=== PATIENT | female | born 1945 | race Caucasian/White ===

== ENCOUNTER 2019-05-06 01:44 | Day surgery (SDC) | payer MEDICARE, SELFPAY ==
[2019-04-29 10:54] VITALS: BMI 23.6
[2019-05-06 08:42] VITALS: BP 118/69; PULSE 99; RESP 20; TEMP 36.3; O2SAT 99; BMI 23.1
[2019-05-06] MEDS: LACTATED RINGERS 1,000 ML 150 ML IV CONT (08:49)
--- NOTE | 2019-05-06 08:53 | WPDANESEPPF ---
Anes - Initial Pre Proc Eval Procedure: Operation Date: 05/06/19 09:30 Proposed Procedures p Screening Colonoscopy - Hernesto Goldsmith DO Date/Time: 05/06/19 08:53 Surgeon: Hernesto Goldsmith DO Pre Op Diagnosis: Neoplasm Screening Patient Data Age: 73 Gender: F Height: 5 ft 3 in Weight: 59.3 kg Last Vital Signs Temp 97.4 F L 05/06/19 08:42 Pulse 99 05/06/19 08:42 Resp 20 05/06/19 08:42 BP 118/69 05/06/19 08:42 Pulse Ox 99 05/06/19 08:42 Allergies Allergy/AdvReac Type Severity Reaction Status Date / Time erythromycin base Allergy Unknown Verified 05/06/19 08:41 nitrofurantoin Allergy Unknown Verified 05/06/19 08:41 NITROFURANTOIN MACROCRYSTAL Allergy Unknown Uncoded 05/06/19 08:41 Home Medications Medication Instructions Recorded Confirmed Type diphenhydramine HCl [Benadryl] 12.5 mg PO HS 05/06/19 05/06/19 History ibuprofen 1,000 mg PO Q6H PRN 05/06/19 05/06/19 History lactase [Lactaid] 3,000 unit PO ONCE PRN 05/06/19 05/06/19 History phenyleph-min oil-petrolatum 1 applic [place] QAM AND QHS PRN 05/06/19 05/06/19 History [Preparation H] simethicone [Gas-X Extra Strength] 125 mg PO DAILY PRN 05/06/19 05/06/19 History Patient hx anesthesia problems: none Family hx anesthesia problems: none PMFSH Past Medical History Medical History (Updated 05/06/19 @ 08:52 by Toby Smith MD) Bronchitis Hyperlipidemia Migraine Family History Family History (Updated 07/12/16 @ 23:56 by DOCTOR UNKNOWN) Father Acute myocardial infarction, Onset Age: 73 Patient's father is Mother Carcinoma of colon, Onset Age: 54 Patient's mother is Sibling Patient's brother is Social History Social History (Updated 05/06/19 @ 08:53 by Toby Smith MD) Smoking packs per day: 1.5 Smoking cigarettes per day: 30.0 Years smoked: 60 Smoking pack-years: 90.00 Smoking status: Current every day smoker Alcohol intake: never Anes - Eval Final PreProcedure Day of Procedure 05/06/19 08:53 Patient weight: normal Heart: regular rate and rhythm Lungs: clear to auscultation Airway: Mallampati scale class II Neurological: alert and oriented Last oral intake: >/= 8 hours ASA classification: III Emergent: no Anesthetic plan: proceed Anesthesia type and monitoring: general GIVS and standard monitoring Informed Consent: The patient's anesthetic plan and its attendant risks and benefits were discussed with the patient/family/POA. Questions were solicited and answers provided to the satisfaction of the patient/family/POA.
--- NOTE | 2019-05-06 08:55 | PM.IMHP ---
H&P: HPI History of Present Illness Chief complaint: Neoplasm Screening Narrative: Rody Wynn is a 73 year old female presents for colonoscopy. Last colonoscopy was in 2010 and has hx of tubular adenomas polyps. She does report lower abdominal cramping that comes and goes. She denies any association with bowel patterns.Denies melena, hematochezia, rectal pains. Denies upper GI symptoms. Family hx of colon cancer in her m toher diagnosed age 56. Review of Systems Review of Systems: All systems reviewed & are unremarkable except as noted in HPI and below PMFSH Past Medical History Medical History (Updated 05/06/19 @ 08:59 by Kate Gutierrez, [employer]) Bronchitis Hyperlipidemia Migraine Family History Family History (Updated 07/12/16 @ 23:56 by DOCTOR UNKNOWN) Father Acute myocardial infarction, Onset Age: 73 Patient's father is Mother Carcinoma of colon, Onset Age: 54 Patient's mother is Sibling Patient's brother is Social History Social History (Updated 05/06/19 @ 08:53 by Toby Smith MD) Smoking packs per day: 1.5 Smoking cigarettes per day: 30.0 Years smoked: 60 Smoking pack-years: 90.00 Smoking status: Current every day smoker Alcohol intake: never Meds Home Medications and Allergies Home Medications Medication Instructions Recorded Confirmed Type diphenhydramine HCl [Benadryl] 12.5 mg PO HS 05/06/19 05/06/19 History ibuprofen 1,000 mg PO Q6H PRN 05/06/19 05/06/19 History lactase [Lactaid] 3,000 unit PO ONCE PRN 05/06/19 05/06/19 History phenyleph-min oil-petrolatum 1 applic [place] QAM AND QHS PRN 05/06/19 05/06/19 History [Preparation H] simethicone [Gas-X Extra Strength] 125 mg PO DAILY PRN 05/06/19 05/06/19 History Allergies Allergy/AdvReac Type Severity Reaction Status Date / Time erythromycin base Allergy Unknown Verified 05/06/19 08:41 nitrofurantoin Allergy Unknown Verified 05/06/19 08:41 NITROFURANTOIN MACROCRYSTAL Allergy Unknown Uncoded 05/06/19 08:41 Vital Signs Vital Signs - 24 hr 05/06/19 08:42 Temperature 36.3 C L Pulse Rate 99 Respiratory Rate 20 Blood Pressure 118/69 Pulse Oximetry 99 Exam Const: General: cooperative, healthy appearing, comfortable, alert and awake Nutritional Appearance: average body habitus Orientation/consciousness: oriented to person, oriented to place, oriented to time and patient oriented x3 Limitations: no limitations HENMT: Head: normal to inspection and normocephalic Mouth: Yes Normal oral and palatal mucosa present and Yes moist mucous membranes Neck: Neck: normal visual inspection, supple and no JVD Carotids: no bruits Resp: Effort & Inspection: normal respiratory effort and no respiratory distress Auscultation: diminished lung sounds Cardio: Rate: regular rate Rhythm: regular rhythm Heart sounds: S1 normal heart sound present, S2 normal heart sound present, no gallops, no murmurs and no rubs GI: Inspection: normal to inspection GI Palp: No abdominal tenderness and No No hepatosplenomegaly present Percussion: Yes normal to percussion Auscultation: normal bowel sounds Rectal Exam: deferred Skin: General skin exam: normal color Lesions: no lesions Rashes: no rashes Neuro: General: oriented to person, oriented to place, oriented to time, patient oriented x3 and moves all extremities Cognition (Neuro): normal cognition Speech: normal speech Gait exam (Neuro): Normal gait present Extrem: General: normal to inspection Psych: Appearance: grossly normal Mental Status: mental status grossly normal Speech and movement: Normal speech and movement present Affect: normal affect Attitude: cooperative Thought process: Normal thought process present Assessment and Plan Assessment and plan (1) Bilateral lower abdominal cramping: Code(s): R10.31 - Right lower quadrant pain; R10.32 - Left lower quadrant pain Status: Acute (2) Hx o
[2019-05-06 09:44] VITALS: BP 107/57; PULSE 68; RESP 17; O2SAT 100
[2019-05-06 09:54] VITALS: BP 119/58; PULSE 70; RESP 20; O2SAT 98
[2019-05-06 10:04] VITALS: BP 125/63; PULSE 81; RESP 20; O2SAT 98
== END 2019-05-06 10:19 | disposition home or self-care (01) ==
PROVIDERS: PCP Emergency Medicine; Visit Provider Internal Medicine Gastroenterology
PROC: 0DJD8ZZ Inspection of Lower Intestinal Tract, Via Natural or Artificial Opening Endoscopic (ICD-10-PCS; CPT 45378; principal; 2019-05-06 09:30)
DX: Z12.11 Encounter for screening for malignant neoplasm of colon (principal); D12.5 Benign neoplasm of sigmoid colon; D12.2 Benign neoplasm of ascending colon; D12.3 Benign neoplasm of transverse colon; D12.4 Benign neoplasm of descending colon; K63.5 Polyp of colon; K64.8 Other hemorrhoids; R19.5 Other fecal abnormalities; Z80.0 Family history of malignant neoplasm of digestive organs; Q27.33 Arteriovenous malformation of digestive system vessel
CPT/HCPCS: 45380; 45385; 45388; 88305; J2704; J7120

== ENCOUNTER 2019-05-07 09:19 | Emergency (ER) | payer MEDICARE, SELFPAY ==
[2019-05-07 09:33] VITALS: BP 140/70; PULSE 97; RESP 18; TEMP 36.7; O2SAT 99
--- NOTE | 2019-05-07 09:35 | ED.GIBLEED ---
HPI - GI Bleed General Chief complaint: Abdominal Pain Stated complaint: RECTAL BLEED S/P COLOSCOPY Time Seen by Provider: 05/07/19 09:31 Source: patient and RN notes reviewed Mode of arrival: ambulatory Limitations: no limitations History of Present Illness HPI Narrative: Pt is a 73 y/o female who presents to the ED with c/o rectal bleeding. She notes that she has had intermittent rt sided ABD cramping for awhile. Pt states that she received a colonoscopy from Dr. Goldsmith yesterday. She notes that she had what may have been a bleeding ulcer cauterized during the procedure. Pt states that Pt has had rt sided ABD cramping for awhile (feels like gas) Rectal bleeding (had increased blood in stool this morning) this was around 7 AM Normal stool Only had 1 BM with blood No lightheadedness, dizziness, or nausea No blood thinners Dr. Aguirre did colonoscopy yesterday with cauterization of bleeind ulcer? Did pass mild blood clot after getting home from hospital Hyster, spine surgery, bowel blockage hemorrhoids MD complaint: gross hematochezia Onset (ago): day(s) (1) Related Data Home Medications Medication Instructions Recorded Confirmed diphenhydramine HCl [Benadryl] 12.5 mg PO HS 05/06/19 05/06/19 ibuprofen 1,000 mg PO Q6H PRN 05/06/19 05/06/19 lactase [Lactaid] 3,000 unit PO ONCE PRN 05/06/19 05/06/19 phenyleph-min oil-petrolatum 1 applic [place] QAM AND QHS PRN 05/06/19 05/06/19 [Preparation H] simethicone [Gas-X Extra Strength] 125 mg PO DAILY PRN 05/06/19 05/06/19 Allergies Allergy/AdvReac Type Severity Reaction Status Date / Time erythromycin base Allergy Unknown Nausea and Verified 05/07/19 09:38 Vomiting nitrofurantoin Allergy Unknown Hives Verified 05/07/19 09:38 NITROFURANTOIN MACROCRYSTAL Allergy Unknown Hives Uncoded 05/07/19 09:38 [facility] Past Medical History Medical History (Updated 05/06/19 @ 08:59 by Kate Gutierrez, [employer]) Bronchitis Hyperlipidemia Migraine Family History Family History (Updated 07/12/16 @ 23:56 by DOCTOR UNKNOWN) Father Acute myocardial infarction, Onset Age: 73 Patient's father is Mother Carcinoma of colon, Onset Age: 54 Patient's mother is Sibling Patient's brother is Social History Social History (Updated 05/06/19 @ 08:53 by Toby Smith MD) Smoking packs per day: 1.5 Smoking cigarettes per day: 30.0 Years smoked: 60 Smoking pack-years: 90.00 Smoking status: Current every day smoker Alcohol intake: never Gender identity (if verbalized by the patient): Female Course Vital Signs Vital signs: Vital Signs Temperature 36.7 C 05/07/19 09:33 Pulse Rate 97 05/07/19 09:33 Respiratory Rate 18 05/07/19 09:33 Blood Pressure 140/70 05/07/19 09:33 Pulse Oximetry 99 05/07/19 09:33 Temperature 36.7 C 05/07/19 09:33 Pulse Rate 97 05/07/19 09:33 Respiratory Rate 18 05/07/19 09:33 Blood Pressure 140/70 05/07/19 09:33 Pulse Oximetry 99 05/07/19 09:33 Discharge Plan Discharge Prescriptions: No Action ibuprofen 200 mg Capsule 1,000 mg PO Q6H PRN (Reason: Pain) RF: 0 simethicone [Gas-X Extra Strength] 125 mg Capsule 125 mg PO DAILY PRN (Reason: Pain) RF: 0 diphenhydramine HCl [Benadryl] 25 mg Capsule 12.5 mg PO HS RF: 0 lactase [Lactaid] 3,000 unit Tablet 3,000 unit PO ONCE PRN (Reason: Abdominal Pain) RF: 0 Preparation H 0.25-14-74.9 % Ointment 1 applic [place] QAM AND QHS PRN (Reason: Pain) RF: 0
--- NOTE | 2019-05-07 09:42 | ED.GIBLEED ---
HPI - GI Bleed General Chief complaint: Abdominal Pain Stated complaint: RECTAL BLEED S/P COLOSCOPY Time Seen by Provider: 05/07/19 09:31 Source: patient and RN notes reviewed Mode of arrival: ambulatory Limitations: no limitations History of Present Illness HPI Narrative: Pt is a 73 y/o female with a Hx of hemorrhoids, who presents to the ED with c/o rectal bleeding since yesterday. She notes that she has had intermittent lower ABD cramping for awhile. Pt states that she received a colonoscopy from [employer], Dr. Goldsmith yesterday, and notes that she had several colonic polyps removed during the procedure. She states that she passed a small clot of blood after returning home from the surgery yesterday. Pt notes that she then noticed blood in her stool around 7 AM this morning. She states that her stool appeared normal, but she noticed blood within the toilet. Pt currently denies any lightheadedness, dizziness, or nausea. She notes that she is not currently taking any blood thinners. MD complaint: gross hematochezia Onset (ago): day(s) (1) Context: hemorrhoids and other (recent colonoscopy) Associated symptoms: abdominal pain (lower ABD cramping) Related Data Home Medications Medication Instructions Recorded Confirmed diphenhydramine HCl [Benadryl] 12.5 mg PO HS 05/06/19 05/06/19 ibuprofen 1,000 mg PO Q6H PRN 05/06/19 05/06/19 lactase [Lactaid] 3,000 unit PO ONCE PRN 05/06/19 05/06/19 phenyleph-min oil-petrolatum 1 applic [place] QAM AND QHS PRN 05/06/19 05/06/19 [Preparation H] simethicone [Gas-X Extra Strength] 125 mg PO DAILY PRN 05/06/19 05/06/19 Allergies Allergy/AdvReac Type Severity Reaction Status Date / Time erythromycin base Allergy Unknown Nausea and Verified 05/07/19 09:38 Vomiting nitrofurantoin Allergy Unknown Hives Verified 05/07/19 09:38 NITROFURANTOIN MACROCRYSTAL Allergy Unknown Hives Uncoded 05/07/19 09:38 Review of Systems Review of Systems: All systems reviewed & are unremarkable except as noted in HPI and below Gastrointestinal: Gastrointestinal: Reports abdominal pain (lower ABD cramping), Reports hematochezia and Denies nausea Neurologic: Denies dizziness and Denies other (lightheadedness) [facility] Past Medical History Medical History Arthritis Back pain Bronchitis Cataracts, bilateral Colon polyps Depression GERD (gastroesophageal reflux disease) Hemorrhoids Hyperlipidemia Migraine Optic nerve tumor Spinal stenosis Uterine cancer Surgical History Surgical History Hx of abdominal hysterectomy Hx of cataract surgery Hx of colonoscopy with removal of colonic polyps Previous back surgery Family History Family History (Updated 07/12/16 @ 23:56 by DOCTOR UNKNOWN) Father Acute myocardial infarction, Onset Age: 73 Patient's father is Mother Carcinoma of colon, Onset Age: 54 Patient's mother is Sibling Patient's brother is Social History Social History Smoking packs per day: 1.5 Smoking cigarettes per day: 30.0 Years smoked: 60 Smoking pack-years: 90.00 Smoking status: Current every day smoker Alcohol intake: never Gender identity (if verbalized by the patient): Female Comments PCP is Dr. Cottrell. Exam Narrative: Exam Narrative: GENERAL: Well-appearing, well-nourished, and in no acute distress. HEAD: Normocephalic, atraumatic EYES: PERRLA and EOMI, conjunctiva clear without discharge THROAT:Mucous membranes moist, Oropharynx normal without erythema, exudate, peritonsillar swelling or fluctuance NECK: Supple, without lymphadenopathy or mass RESPIRATORY: No respiratory distress, Airway patent, Respirations non-labored, Clear to auscultation without rales, rhonchi or wheeze HEART: Regular rate and rhythm. No murmur heard. Normal peripheral puls
[2019-05-07 09:57] VITALS: BP 132/59; PULSE 92
[2019-05-07 09:57] LABS: Basophils Absolute Auto 0.1 K/mm3 (0.0-0.1); Basophils Percent Auto 0.5 % (0.2-1.2); Eosinophils Absolute Auto 0.1 K/mm3 (0-0.3); Eosinophils Percent Auto 0.9 % (0-4.4); Hematocrit 45.7 % (37.0-47.0); Hemoglobin 14.7 g/dL (12.0-15.0); Immature Granulocyte Absolute 0.07 K/mm3 (0.00-0.031); Immature Granulocyte Percent A 0.6 % (0-0.5); Lymphocytes Absolute Auto 1.81 K/mm3 (0.9-3.2); Lymphocytes Percent Auto 15.8 % (18.3-44.2); Mean Corpuscular HGB Conc 32.2 g/dl (32-36); Mean Corpuscular Hemoglobin 29.4 pg (26-34); Mean Corpuscular Volume 91.4 fl (80-100); Monocytes Absolute Auto 0.8 K/mm3 (0.1-0.6); Monocytes Percent Auto 6.6 % (2.6-8.5); Neutrophils Absolute Auto 8.7 K/mm3 (1.3-6.7); Neutrophils Percent Auto 75.6 % (45.5-73.1); Platelet Count Result 342 k/mm3 (150-375); Red Cell Distribution Width 14.3 % (11.5-14.5); White Blood Count 11.5 K/mm3 (4.5-10.0)
[2019-05-07 09:58] VITALS: BP 111/65; BP 116/67; PULSE 90; PULSE 97
[2019-05-07 10:09] LABS: Alanine Aminotransferase 20 U/L (4-35); Albumin Level 4.8 g/dL (3.5-5.1); Alkaline Phosphatase 77 U/L (38-126); Aspartate Amino Transferase 26 U/L (14-36); Bilirubin,Total 0.4 mg/dL (0.2-1.3); Blood Urea Nitrogen 9 mg/dL (7-17); Calcium 9.6 mg/dL (8.4-10.2); Carbon Dioxide 26 mmol/L (22-30); Chloride 99 mmol/L (98-107); Estimated CRCL calculation 49 ml/min; Estimated Glomerular Filt Rate > 60; Glucose 112 mg/dL (65-105); Potassium 4.2 mmol/L (3.4-5.0); Sodium 137 mmol/L (137-145)
[2019-05-07 10:10] LABS: INR 0.9; Prothrombin Time 11.7 Seconds (11.1-14.7)
[2019-05-07 10:11] LABS: Partial Thromboplastin Time 29.3 SECONDS (22.3-36.8)
[2019-05-07 10:54] VITALS: BP 127/74; PULSE 85; RESP 18; O2SAT 95
== END 2019-05-07 11:35 | disposition home or self-care (01) ==
PROVIDERS: Emergency Provider General Practice; PCP Emergency Medicine
DX: K91.840 Postprocedural hemorrhage of a digestive system organ or structure following a digestive system procedure (principal); F17.210 Nicotine dependence, cigarettes, uncomplicated; M19.90 Unspecified osteoarthritis, unspecified site; K21.9 Gastro-esophageal reflux disease without esophagitis; E78.5 Hyperlipidemia, unspecified; Z85.42 Personal history of malignant neoplasm of other parts of uterus; Z98.42 Cataract extraction status, left eye; Z98.41 Cataract extraction status, right eye
CPT/HCPCS: 36415; 80053; 85025; 85610; 85730; 99283

== ENCOUNTER 2020-06-13 11:31 | Outpatient (CLI) | payer MEDICARE, SELFPAY | END 2020-06-13 11:32 | disposition home or self-care (01) | LOC: ANHCOVIDVC 11:31 | PROVIDERS: PCP Emergency Medicine | DX: Z23 Encounter for immunization (principal) | CPT/HCPCS: 0001A; 91300 ==

== ENCOUNTER 2020-07-04 11:34 | Outpatient (CLI) | payer MEDICARE, SELFPAY | END 2020-07-04 11:35 | disposition home or self-care (01) | LOC: ANHCOVIDVC 11:34 | PROVIDERS: PCP Emergency Medicine | DX: Z23 Encounter for immunization (principal) | CPT/HCPCS: 0002A; 91300 ==

== ENCOUNTER 2020-12-12 09:05 | Emergency (ER) | payer MEDICARE, SELFPAY ==
--- NOTE | ~2020-12-12 | XR_ITS ---
EXAMINATION: XR lumbar spine 2-3V DATE: 12/12/2020 09:26 INDICATION: Low back pain. TECHNIQUE: 3 views of lumbar spine were obtained. COMPARISON: Lumbar spine radiographs 02/22/2020, MRI 08/02/2016 FINDINGS: There is 5 degrees dextrocurvature of lumbar spine. There is 3 mm anterolisthesis of L3 on L4. There are changes of posterior fusion procedure at L4-L5 with pedicle screws. There is mildly dec reased disc height at L2-L3 and L3-L4 and severely decreased disc height at L4-L5. There is severe ri ght facet joint osteoarthritis at L5-S1. IMPRESSION: 1. Severe lumbar spondylosis. 2. Posterior fusion procedure at L4-L5. Reviewed, dictated and finalized at location A.
[2020-12-12 09:10] VITALS: BP 134/50; PULSE 96; RESP 18; TEMP 36.9; O2SAT 100
--- NOTE | 2020-12-12 11:42 | ED.GENADULT ---
HPI - General Adult General Chief complaint: Back Pain/Injury Stated complaint: lower back pain Time Seen by Provider: 12/12/20 09:24 Source: patient Mode of arrival: EMS Limitations: no limitations History of Present Illness HPI narrative: Patient presents for evaluation of low back pain. She indicates she has a history of chronic low back pain but typically involves the right side and shoots down the right lower extremity. She is a history of herniated disc and some type of arthroscopic surgery of the lumbar spine in the past. She is previously underwent steroid injections but has not had an injection in a few years. Yesterday morning she woke from sleep with pain in the left lower back. She states pain has been constant since that time. Pain does not radiate. She states it feels like a electrical sensation rated 8-9/10. No bladder or bowel incontinence. She tried using CBD oil with mild improvement in her symptoms thereafter. Movement makes her symptoms worse. Her daughter is currently visiting from [place] and went to check on her last night due to the amount of pain she was experiencing. She is having difficulty walking so she contacted EMS who brought her here for further evaluation. Her daughter is concerned that she may have a urinary tract infection. Patient denies any flank pain, abdominal pain, urinary symptoms. Related Data Home Medications Medication Instructions Recorded Confirmed diphenhydramine HCl [Benadryl] 12.5 mg PO HS 05/06/19 05/06/19 ibuprofen 1,000 mg PO Q6H PRN 05/06/19 05/06/19 lactase [Lactaid] 3,000 unit PO ONCE PRN 05/06/19 05/06/19 phenyleph-min oil-petrolatum 1 applic [place] QAM AND QHS PRN 05/06/19 05/06/19 [Preparation H] simethicone [Gas-X Extra Strength] 125 mg PO DAILY PRN 05/06/19 05/06/19 Allergies Allergy/AdvReac Type Severity Reaction Status Date / Time erythromycin base Allergy Unknown Nausea and Verified 05/07/19 09:38 Vomiting nitrofurantoin Allergy Unknown Hives Verified 05/07/19 09:38 NITROFURANTOIN MACROCRYSTAL Allergy Unknown Hives Uncoded 05/07/19 09:38 Review of Systems Review of Systems: CONSTITUTIONAL: Denies fever, chills, or sweats. EYES: Denies visual changes, redness, or discharge. ENT: Denies rhinorrhea, congestion, sore throat, or otalgia. CARDIOVASCULAR: Denies chest pain, palpitations, or edema. RESPIRATORY: Denies cough or dyspnea. GASTROINTESTINAL: Denies abdominal pain, nausea, vomiting, or diarrhea. GENITOURINARY: Denies dysuria or hematuria. SKIN: Denies rash or itching. MUSCULOSKELETAL: Reports low back pain. Denies joint pain or myalgia. NEUROLOGIC: Denies headache, numbness, dizziness, or weakness. PSYCHIATRIC: Denies anxiety or depression. [facility] Past Medical History Medical History (Updated 12/12/20 @ 12:38 by MICHELLE Brooks, ) Arthritis Back pain Bronchitis Cataracts, bilateral Colon polyps Depression GERD (gastroesophageal reflux disease) Hemorrhoids Hyperlipidemia Migraine Optic nerve tumor Spinal stenosis Uterine cancer Surgical History Surgical History Hx of abdominal hysterectomy Hx of cataract surgery Hx of colonoscopy with removal of colonic polyps Previous back surgery Family History Family History Father Acute myocardial infarction, Onset Age: 73 Patient's father is Mother Carcinoma of colon, Onset Age: 54 Patient's mother is Sibling Patient's brother is Social History Social History Smoking packs per day: 1.5 Smoking cigarettes per day: 30.0 Years smoked: 60 Smoking pack-years: 90.00 Smoking status: Current every day smoker Alcohol intake: never Gender identity (if verbalized by the patient): Female Exam Narrative: GENERAL: Visibl
[2020-12-12] MEDS: KETOROLAC (*BKC) 60 MG/2 ML VIAL IM (11:52)
[2020-12-12 12:15] LABS: Add Urine Microscopic? YES; Appearance Urine Clear (Clear); Bilirubin Urine Negative (Negative); Blood Urine Negative (Negative); Color Urine Yellow (Yellow); Glucose Urine UA Negative (Negative); Ketones Urine 1+ mg/dL (Negative); Leukocyte Esterase Ur Negative LEU/UL (Negative); Nitrate Urine Negative (Negative); Protein Urine Negative (Negative); RBC Urine 0-2 /hpf (0-2); Specific Grav Ur 1.006 (1.001-1.035); Urobilinogen Urine Negative mg/dL (<2.0); WBC Urine 0-3 /hpf
[2020-12-12 13:19] VITALS: BP 126/72; PULSE 70; RESP 18; O2SAT 98
== END 2020-12-12 12:55 | disposition home or self-care (01) ==
PROVIDERS: Emergency Provider Nurse Practitioner; PCP Emergency Medicine
DX: M47.816 Spondylosis without myelopathy or radiculopathy, lumbar region (principal); M51.36 Other intervertebral disc degeneration, lumbar region; F17.210 Nicotine dependence, cigarettes, uncomplicated; M19.90 Unspecified osteoarthritis, unspecified site; K21.9 Gastro-esophageal reflux disease without esophagitis; E78.5 Hyperlipidemia, unspecified; F32.9 Major depressive disorder, single episode, unspecified
CPT/HCPCS: 72100; 81001; 96372; 99283; J1885

== ENCOUNTER 2020-12-22 07:07 | Outpatient (CLI) | payer MEDICARE, SELFPAY ==
--- NOTE | ~2020-12-22 | XR_ITS ---
EXAMINATION: XR knee RT 2V DATE: 12/22/2020 07:21 INDICATION: Right knee pain TECHNIQUE: Two views of the right knee were obtained. COMPARISON: 06/29/2012 FINDINGS: Alignment is normal. No fracture or osteochondral lesion. There is mild tricompartmental os teoarthritis characterized by tiny marginal osteophytes. No joint effusion/synovitis. Soft tissues a re unremarkable. IMPRESSION: 1. Mild osteoarthritis. Reviewed, dictated and finalized at location A. IMPRESSION: 1. Mild osteoarthritis.
== END 2020-12-22 07:08 | disposition home or self-care (01) ==
LOC: ANHIMG 07:10
PROVIDERS: PCP Emergency Medicine; Visit Provider Emergency Medicine
DX: M25.561 Pain in right knee (principal); M17.11 Unilateral primary osteoarthritis, right knee
CPT/HCPCS: 73560

== ENCOUNTER 2021-09-20 07:00 | Outpatient (CLI) | payer MEDICARE, SELFPAY ==
[2021-09-20 07:42] LABS: Alanine Aminotransferase 18 U/L (6-35); Albumin Level 4.5 g/dL (3.5-5.1); Alkaline Phosphatase 55 U/L (38-126); Anion Gap 4 mmol/L (8-16); Aspartate Amino Transferase 26 U/L (14-36); Bilirubin,Total 0.5 mg/dL (0.2-1.3); Blood Urea Nitrogen 15 mg/dL (7-17); Calcium 9.2 mg/dL (8.4-10.2); Carbon Dioxide 30 mmol/L (22-30); Chloride 101 mmol/L (98-107); Cholesterol 241 mg/dL (0-200); Estimated Glomerular Filt Rate > 60; Glucose 102 mg/dL (65-110); HDL Direct 58 mg/dL; Potassium 4.3 mmol/L (3.4-5.0); Sodium 135 mmol/L (137-145); Triglycerides 79 mg/dL (<150)
[2021-09-20 07:53] LABS: LDL Cholesterol Direct 132 mg/dL
[2021-09-24 23:52] LABS: Vitamin D 1,25 (OH)2 Total 41 pg/mL (18-72); Vitamin D2 1,25 (OH)2 <8 pg/mL; Vitamin D3 1,25 (OH)2 41 pg/mL
== END 2021-09-20 07:01 | disposition home or self-care (01) ==
PROVIDERS: PCP Emergency Medicine; Visit Provider Emergency Medicine
DX: E55.9 Vitamin D deficiency, unspecified (principal); Z13.6 Encounter for screening for cardiovascular disorders
CPT/HCPCS: 36415; 80053; 80061; 82652

== ENCOUNTER 2023-03-25 11:29 | Outpatient (CLI) | payer MEDICARE, SELFPAY ==
[2023-03-25 13:09] LABS: Appearance Urine Clear (Clear); Bacteria Urine None Seen /hpf; Bilirubin Urine Negative (Negative); Blood Urine Negative (Negative); Color Urine Yellow (Yellow); Glucose Urine UA Negative (Negative); Ketones Urine Negative (Negative); Leukocyte Esterase Ur Trace LEU/UL (Negative); Nitrate Urine Negative (Negative); Non Pathogenic Casts 0-2; Protein Urine Negative (Negative); RBC Urine 0-2 /hpf (0-2); Specific Grav Ur 1.007 (1.001-1.035); Squamous Epithelial Cell Urine None seen /hpf (Few); Urobilinogen Urine 0.2 mg/dL (<2.0); WBC Urine 0-5 /hpf; pH Urine 6.5 (5.0-9.0)
[2023-03-25 13:43] LABS: Add Urine Microscopic? YES
== END 2023-03-25 11:30 | disposition home or self-care (01) ==
PROVIDERS: PCP Emergency Medicine; Visit Provider Emergency Medicine
DX: N39.0 Urinary tract infection, site not specified (principal)
CPT/HCPCS: 81001

== ENCOUNTER 2023-12-11 08:06 | Outpatient (CLI) | payer MEDICARE, SELFPAY ==
[2023-12-11 08:36] LABS: Alanine Aminotransferase 17 U/L (6-35); Albumin Level 4.5 g/dL (3.5-5.1); Alkaline Phosphatase 51 U/L (38-126); Anion Gap 9 mmol/L (4-12); Aspartate Amino Transferase 29 U/L (14-36); Bilirubin,Total 0.4 mg/dL (0.2-1.3); Blood Urea Nitrogen 17 mg/dL (7-17); Calcium 9.1 mg/dL (8.4-10.2); Carbon Dioxide 28 mmol/L (22-30); Chloride 97 mmol/L (98-107); Cholesterol 227 mg/dL (0-200); Estimated Glomerular Filt Rate > 60; Glucose 99 mg/dL (65-110); HDL Direct 70 mg/dL; Potassium 4.4 mmol/L (3.4-5.0); Sodium 134 mmol/L (137-145); Triglycerides 80 mg/dL (<150)
[2023-12-11 08:46] LABS: LDL Cholesterol Direct 125 mg/dL
[2023-12-11 10:24] LABS: Vitamin D 25 Hydroxy 46.2 ng/mL
== END 2023-12-11 08:07 | disposition home or self-care (01) ==
LOC: ANHLAB 08:10
PROVIDERS: PCP Emergency Medicine; Visit Provider Emergency Medicine
DX: E78.5 Hyperlipidemia, unspecified (principal); E03.9 Hypothyroidism, unspecified; E55.9 Vitamin D deficiency, unspecified
CPT/HCPCS: 36415; 80053; 80061; 82306; 84443

== ENCOUNTER 2024-06-01 08:35 | Outpatient (CLI) | payer MEDICARE, SELFPAY ==
--- NOTE | ~2024-06-01 | MM_ITS ---
EXAMINATION: MM screening funmilayo BI w megan HISTORY: Screening mammogram TECHNIQUE: Craniocaudal and mediolateral oblique 3-D tomosynthesis images were obtained and synthetic 2-D images were generated. CAD analysis was submitted and interpreted. COMPARISON: 01/28/2012 BREAST PARENCHYMAL COMPOSITION:Not Dense. There are scattered areas of fibroglandular density. FINDINGS: No suspicious mass, calcification, or architectural distortion are identified in either lou ast to suggest malignancy. There has been no suspicious interval change. IMPRESSION: No mammographic evidence of malignancy. Recommend routine screening mammography in one year. BI-RADS Category 1: Negative Reviewed, dictated and finalized at location . E INSPECTOR
--- NOTE | ~2024-06-01 | DEXA_ITS ---
Bone Density Report Name: ALTON BAZZI Age: 78 Sex: Female Ethnicity: White Date of : 1945 Indication: postmenopausal; screening for osteoporosis; height loss; cancer; hysterectomy; Referring Provider: AZUL HARRELL Study: Bone densitometry was performed. Exam Date: June 01, 2024 Accession number: [id number] Bone Density: Region BMD T-score Z-score Classification AP Spine(L1-L4) 0.682 -3.3 -0.6 Osteoporosis Femoral Neck (Left) 0.505 -3.1 -0.8 Osteoporosis Total Hip (Left) 0.633 -2.5 -0.4 Osteoporosis Femoral Neck (Right) 0.488 -3.3 -0.9 Osteoporosis Total Hip (Right) 0.621 -2.6 -0.5 Osteoporosis Total Hip Mean 0.627 -2.6 -0.5 Osteoporosis World Health Organization criteria for BMD impression classify patients as: Normal (T-score at or above -1.0), Osteopenia (T-score between -1.0 and -2.5), or Osteoporosis (T-score at or below -2.5). 10-year Fracture Risk: FRAX not reported because: Some T-score for Spine Total or Hip Total or Femoral Neck at or below -2.5 Clinical Information Provided by Patient: Smokes Has used the following medications: Vitamin D Has the following medical conditions: Cancer, Hysterectomy Patient maximum height was 65.5 Menopause Age: 23 Does not regularly consume dairy products Drinks caffeinated beverages Onset of menses at age 13 Number of children 4 Impression: The patient has osteoporosis, based on the Total Spine T-score. The patient has risk factors, including: smoking. Discussion: INCREASED RISK OF FRACTURE. BONE DENSITY IS UNDESIRABLY LOW AT ONE OR MORE SKELETAL SITES, CONSISTENT WITH POSTMENOPAUSAL OSTEOPOROSIS. This patient's lowest T-score meets the World Health Organization's (WHO) criteria for osteoporosis at one or more sites (T-score -2.5 or below). In untreated patients, the risk of osteoporotic fracture increases approximately two-fold for each 1.0 SD decrease in T-score. Low bone density is not the only risk factor for fracture; also consider factors such as patient's age, frailty or poor health, risk of falling, risk of injury, previous osteoporotic fracture, family history of osteoporosis, cigarette smoking, low body weight, etc. Not everyone with low bone mineral density has osteoporosis; osteomalacia and other metabolic bone disorders should also be considered. Patients who have osteoporosis should be evaluated for specific diseases and conditions (secondary causes) that may cause or contribute to bone loss. The [place] Association of Clinical Endocrinologists (AACE) and National Osteoporosis Foundation (NOF) recommend pharmacologic intervention for all postmenopausal women whose T-score is in this range. The patient should follow a healthful lifestyle (good nutrition with adequate calcium and vitamin D, and appropriate weight-bearing exercise). Follow-Up: Consider a repeat BMD and Vertebral Fracture Assessment (VFA) exam in 2 years or sooner if medically necessary, to reassess this patient's status. Reported by: ISABELA on 06/01/2024 9:23:00 AM. Reviewed, dictated and finalized at location A. [place]
--- OUTSIDE RECORDS SUMMARY | 2024-06-01 08:52 | XMS_ITS | Clinical Summary ---
Author Organization [facility] Address [address] [address] Phone Care Team Providers Care Dip Unit Operator Name Role Phone Casey Cottrell MD Primary Care Provider Medications dicyclomine (BENTYL) 10 MG Capsule Take 1 Cap by mouth 3 times daily. 270 Cap 3 09/07/2019 Active Social History Tobacco Use Types Packs/Day Years Used Date Smoking Tobacco: Never Assessed Comments Unknown Sex and Gender Information Value Date Recorded Sex Assigned at Not on file Legal Sex Female 9:52 PM CDT Gender Identity Not on file Sexual Orientation Not on file Plan of Treatment Health Maintenance Due Date Last Done Comments DEXA Bone Density 1945 Hepatitis C Virus (HCV) Screening 1945 TdaP Immunization 1945 Pneumococcal Immunization (5 0+ years) (1 of 1 - PCV) 08/29/1993 Zoster Immunization (1 of 2) 08/29/1993 Respiratory Syncytial Virus (RSV) Immunization (Adult) (1 - 1-dose 75+ series) 08/29/2018 Influenza Immunization (#1) 2023 SARS-COV-2 Immunization ( - season) 2023 Hepatitis B Immunization Aged Out No longer eligible based on patient's age to complete this topic Meningococcal Immunization (ACWY) Aged Out No longer eligible based on patient's age to complete this topic Rotavirus Immunization Aged Out No lo nger eligible based on patient's age to complete this topic Insurance MEDICARE C [employer] Care Teams Dip Unit Operator Relationship Specialty Start Date End Date Casey Cottrell MD [address] [place] [address] PCP - General Internal Medicine 04/28/19
== END 2024-06-01 08:36 | disposition home or self-care (01) ==
PROVIDERS: PCP Emergency Medicine; Visit Provider Emergency Medicine
DX: Z12.31 Encounter for screening mammogram for malignant neoplasm of breast (principal); Z78.0 Asymptomatic menopausal state; E55.9 Vitamin D deficiency, unspecified; M81.0 Age-related osteoporosis without current pathological fracture
CPT/HCPCS: 77063; 77067; 77080

== ENCOUNTER 2024-06-13 09:52 | Outpatient (CLI) | payer MEDICARE, SELFPAY ==
--- NOTE | ~2024-06-13 | XR_ITS ---
Lumbosacral Spine: AP and lateral views Clinical History: Pain COMPARISON: 12/12/2020 Findings: Stable transpedicular screws bilaterally at L4-L5. Severe degenerative tearing at L4-L5 is present. There is a 5 mm anterolisthesis of L3 over L4, severe degenerative disc and L3-L4, which is worsened from prior exam. There is mild facet arthropathy. There is advanced degenerative disc narrow ing at L5-S1, worsened from prior exam. The sacroiliac joints are normally outlined. Impression: Moderate degenerative change, as above, worse in overall from prior exam, with worsening degenerative disc narrowing, especially at L3-L4 and L5-S1. Stable transpedicular screws at L4 and L5. 5 mm anterolisthesis of L3 over L4. Reviewed, dictated and finalized at [facility]. Impression: Moderate degenerative change, as above, worse in overall from prior exam, with worsening degenerative disc narrowing, especially at L3-L4 and L5-S1. Stable transpedicular screws at L4 and L5. 5 mm anterolisthesis of L3 over L4.
--- NOTE | ~2024-06-13 | XR_ITS ---
Thoracic spine: Clinical Indication: Back pain AP and lateral views were performed. No fracture is seen. There is normal alignment of the vertebrae. Mild degenerative disc change prese nt of the thoracic spine. Paravertebral soft tissues appear normal. Impression: Mild degenerative spondylosis. Reviewed, dictated and finalized at location . Impression: Mild degenerative spondylosis.
--- NOTE | ~2024-06-13 | XR_ITS ---
Cervical Spine: AP, lateral, open-mouth views Clinical History: Pain Findings: The normal lordotic curve is maintained. No fracture or subluxation. There is advanced face t arthropathy throughout the cervical spine. There is severe degenerative C6-C7. There is mild degene rative change at the remaining cervical levels. Pre-vertebral soft tissues are unremarkable. Impression: Moderate to advanced degenerative spondylosis, as above. Reviewed, dictated and finalized at location M. Impression: Moderate to advanced degenerative spondylosis, as above.
--- OUTSIDE RECORDS SUMMARY | 2024-06-13 09:57 | XMS_ITS | Clinical Summary ---
Author Organization [facility] Address [address] [address] Phone Care Team Providers Care Television Production Technician Name Role Phone Casey Cottrell MD Primary Care Provider [phone] Medications dicyclomine (BENTYL) 10 MG Capsule Take [...] Immunization (#1) 2023 SARS-COV-2 Immunization ( - 2023- season) 2023 Hepatitis B Immunization Aged Out No longer eligible based on patient's age to complete this topic Meningococcal Immunization (ACWY) Aged Out No longer eligible based on patient's age to complete this topic Rotavirus Immunization Aged Out No lo nger eligible based on patient's age to complete this topic Insurance MEDICARE C [employer] Care Teams Television Production Technician Relationship Specialty Start Date End Date Casey Cottrell MD [address] [place] [address] PCP - General Internal Medicine 04/28/19
== END 2024-06-13 09:53 | disposition home or self-care (01) ==
PROVIDERS: PCP Emergency Medicine; Visit Provider Emergency Medicine
DX: M54.50 Low back pain, unspecified (principal); M47.894 Other spondylosis, thoracic region; M47.892 Other spondylosis, cervical region
CPT/HCPCS: 72040; 72070; 72100

== ENCOUNTER 2024-07-14 13:12 | Emergency (ER) | payer MEDICARE, SELFPAY ==
--- NOTE | ~2024-07-14 | CT_ITS ---
EXAMINATION: CT abdomen pelvis w con DATE: 07/14/2024 15:52 INDICATION: Lower abdominal pain TECHNIQUE: Computed tomography (CT) of the abdomen and pelvis was performed with 100 mL Omnipaque-350 intravenous contrast. Automated exposure control and iterative reconstruction technique were employe d. The dose-length product was 243.79 mGy-cm. COMPARISON: 01/28/2012 FINDINGS: Mild emphysema and mild dependent atelectasis in the visualized lower lungs. Mild pectus excavatum. H eart size is normal. Atherosclerotic coronary artery calcium chest. No pericardial or pleural effusio n. Mild focal hepatic steatosis at the ligamentum teres. Gallbladder, spleen and pancreas are normal. Stable appearance of chronic low-density thickening of the bilateral adrenal glands which could be r elated to adrenal hyperplasia or small adenomas. Multiple bilateral renal cysts measuring up to 2.1 c m on the right. There is fluid scattered throughout nondilated small bowel with no transition point t o suggest obstruction. There is some liquid stool layering in the cecum with the more distal colon re latively decompressed. The appendix is not visualized. No pericecal inflammatory change to suggest ac luc appendicitis. Bladder is normal. The uterus is not identified and has likely been surgically rese cted. No free intraperitoneal gas or fluid. No pathologically enlarged abdominal or pelvic lymphadeno amaris. Severe lumbar spondylosis with change of prior L4 and L5 laminectomies and instrumented L4-L5 posterior spinal fusion with bilateral vertical hermilo and pedicle screw fixation. IMPRESSION: 1. Thoracic fluid throughout nonobstructed small bowel and diarrhea some liquid stool in cecum consis tent with diarrhea which could be seen in the setting of gastroenteritis. No other acute intra-abdomi nal/pelvic process. Reviewed, dictated and finalized at location B. IMPRESSION: 1. Thoracic fluid throughout nonobstructed small bowel and diarrhea some liquid stool in cecum consistent with diarrhea which could be seen in the setting of gastroenteritis. No other acute intra-abdominal/pelvic process.
[2024-07-14 13:14] VITALS: BP 131/109; PULSE 80; RESP 16; TEMP 36.4; O2SAT 96
--- NOTE | 2024-07-14 13:22 | ECG_ITS ---
Test Date: 2024-07-14 13:27:02 Measurements Intervals [place] Rate: 64 P: 0 MD: 0 QRS: 17 QRSD: 82 T: 35 QT: 394 QTc: 407 Interpretive Statements SINUS RHYTHM WITH 2ND DEGREE AV BLOCK, 2:1 OR MOBITZ TYPE II DELAYED PRECORDIAL R/S TRANSITION BASELINE ARTIFACT- I, II, III, AVR, AVL, AVF, V1-V2, V4-V6 ABNORMAL ECG No previous ECG available for comparison Electronically Signed On 07-14-2024 13:35:21 CDT by Dawson Guthrie D.O.
--- NOTE | 2024-07-14 13:25 | ED_ITS ---
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 SHE DENIES ANY FEVER OR CHILLS DIARRHEA OR CONSTIPATION OR VOMITING OR RADIATION OF PAIN. WORSE WITH MOVEMENT AND PUSH ON IT, NOTHING MAKE IT BETTER. HISTORY OF HYSTERECTOMY OSTEOPOROSIS, NOT ON ANY MEDICATION AT HOME, SMOKES CIGARETTES FOR YEARS, DOES NOT DRINK OR USE DRUGS Related Data Allergies Allergy/AdvReac Type Severity Reaction Status Date / Time nitrofurantoin (From Allergy Intermediate Hives Verified 06/08/24 13:10 Macrobid) erythromycin base AdvReac Unknown Nausea and Verified 06/08/24 13:10 Vomiting Review of Systems 2 Review of Systems: All systems reviewed & are unremarkable except as noted in HPI and below PMFSH Past Medical History Medical History Urinary frequency Sinus congestion Dysuria Excessive ear wax UTI (urinary tract infection) Acute non-recurrent maxillary sinusitis Anxiety Chronic right-sided low back pain without sciatica Current moderate episode of major depressive disorder without prior episode Expiratory wheezing Fatigue Recurrent sinusitis Right ear pain Vitamin D deficiency Hemorrhoids Spinal stenosis Depression Back pain Arthritis Uterine cancer GERD (gastroesophageal reflux disease) Optic nerve tumor Colon polyps Cataracts, bilateral Bronchitis Hyperlipidemia Migraine Surgical History Surgical History Hx of colonoscopy with removal of colonic polyps Hx of cataract surgery Previous back surgery Hx of abdominal hysterectomy Family History Family History Father Acute myocardial infarction, Onset Age: 73 Patient's father is Mother Carcinoma of colon, Onset Age: 54 Patient's mother is Sibling Patient's brother is Social History Social History Smoking packs per day: 1.5 Smoking cigarettes per day: 30.0 Years smoked: 60 Smoking pack-years: 90.00 Smoking status: Current every day smoker Alcohol intake: never Do You Feel Safe in your Home?: Yes Lack of Transportation: No Lack of Food: Never True Current Housing: I Have Housing Concerned About Future Housing: No Difficulty Paying Gas/Electric Bills: No Difficulty Paying for Meds: No Currently Unemployed: No Education: Associate Degree Difficulty w/ Childcare or Family Care: No Gender identity (if verbalized by the patient): Female Exam 2 Narrative: GENERAL APPEARANCE: WELL-DEVELOPED, WELL-NOURISHED SKIN: NORMAL COLOR HEAD: NORMOCEPHALIC, NONTRAUMATIC EYES: CLEAR CONJUNCTIVA ENT: OROPHARYNX NORMAL, EARS NORMAL, NOSE NORMAL NECK: SUPPLE, NONTENDER CHEST AND RESPIRATORY: AIRWAY PATENT, NO RESPIRATORY DISTRESS, NO ACCESSORY MUSCLE USE HEART: REGULAR RATE/RHYTHM ABDOMEN: SOFT, DIFFUSE TENDERNESS, NO ORGANOMEGALY, QUIET BOWEL SOUNDS VASCULAR: NORMAL PERIPHERAL PULSES, NORMAL CAPILLARY REFILL. MUSCULOSKELETAL: NORMAL RANGE OF MOTION, NONTENDER BACK NEUROLOGIC: ALERT AND ORIENTED ?3, ASSAULT AMPHIBIOUS VEHICLE OFFICER IS NORMAL TESTED, NO GROSS MOTOR DEFICIT Course Vital Signs Vital signs: Vital Signs Temperature 36.4 C 07/14/24 13:14 Pulse Rate 80 07/14/24 13:14 Respiratory Rate 16 07/14/24 13:14 Blood Pressure 131/109 H 07/14/24 13:14 Pulse Oximetry 96 07/14/24 13:14 Oxygen Delivery Room Air 07/14/24 13:14 Temperature 36.4 C 07/14/24 13:14 Pulse Rate 75 07/14/24 16:42 Respiratory Rate 16 07/14/24 16:42 Blood Pressure 128/56 L 07/14/24 16:42 Pulse Oximetry 96 07/14/24 16:42 Oxygen Delivery Room Air 07/14/24 13:14 MDM - Abdominal Pain MDM Narrative Medical decision making narrative: PATIENT CAME TO THE ED WITH ABDOMINAL PAIN VITAL SIGNS ARE STABLE PHYSICAL EXAMINATION CONSISTENT DIFFUSE ABDOMINAL TENDERNESS, NO GUARDING OR REBOUND, QUITE BOWEL SOUNDS DIFFERENTIAL DIAGNOSIS INCLUDES ISCHEMIC COLITIS DIVERTICULITIS COLITIS CONSTIPATION URINARY TRACT INFECTION APPENDICITIS BLOOD WORKUP TODAY INCLUDES CBC, CMP, LIPASE, LACTIC ACID SHOWED WBC 11.7, URINALYSIS SHOWED NO ACUTE ABNORMALITIES CT ABDOMEN AND PELVIS WITH IV CONTRAST SHOWED FLUID IN THE SMALL BOWEL CONSISTENT WITH DIARRHEA/GASTROENTERITIS DIAGNOSIS SPASTIC COLON, IBS DISCHARGED ON DICYCLOMINE AND METAMUCIL Differential Diagnosis Differential diagnosis: Likely other ( ABOVE) Medical Records Attestation: I reviewed the patient's medical records. Lab Data Attestation: I reviewed the patient's lab results. 07/14/24 14:25 07/14/24 14:25 Labs: Lab Results 07/14/24 07/14/24 Range/Units 14:25 15:28 WBC 11.7 H (4.5-10.0) K/mm3 RBC 4.25 (4.2-5.4) M/mm3 Hgb 12.7 (12.0-15.0) g/dL Hct 39.5 (37.0-47.0) % MCV 92.9 (80-100) fl MCH 29.9 (26-34) pg MCHC 32.2 (32-36) g/dl RDW 14.3 (11.5-14.5) % Plt Count 260 (150-375) k/mm3 MPV 10.2 (7.4-10.4) fl Immature Gran % (Auto) 0.3 (0-0.5) % Neut % (Auto) 89.1 H (45.5-73.1) % Lymph % (Auto) 7.4 L (18.3-44.2) % [place] % (Auto) 2.6 (2.6-8.5) % Eos % (Auto) 0.2 (0-4.4) % Baso % (Auto) 0.4 (0.2-1.2) % Lymph # (Auto) 0.87 L (0.9-3.2) K/mm3 [place] # (Auto) 0.3 (0.1-0.6) K/mm3 Eos # (Auto) 0.0 (0-0.3) K/mm3 Baso # (Auto) 0.1 (0.0-0.1) K/mm3 Abs Immat Gran (auto) 0.04 H (0.00-0.031) K/mm3 Absolute Neuts (auto) 10.5 H (1.3-6.7) K/mm3 Absolute Nucleated RBC 0.000 (0.0-0.012) K/mm3 Nucleated RBC % 0.0 (0.0-0.2) % Sodium 136 L (137-145) mmol/L Potassium 4.1 (3.4-5.0) mmol/L Chloride 100 (98-107) mmol/L Carbon Dioxide 23 (22-30) mmol/L Anion Gap 13 H (4-12) mmol/L BUN 16 (7-17) mg/dL Creatinine 0.77 (0.7-1.0) mg/dL Estim Creat Clear Calc 42 ml/min Estimated GFR > 60 (59 - ) Glucose 134 H (65-110) mg/dL Lactic Acid 1.6 (0.7-2.0) mmol/L Calcium 9.5 (8.4-10.2) mg/dL Total Bilirubin 0.2 (0.2-1.3) mg/dL AST 29 (14-36) U/L ALT 19 (6-35) U/L Alkaline Phosphatase 54 (38-126) U/L Total Protein 7.0 (6.3-8.2) g/dL Albumin 4.4 (3.5-5.1) g/dL Lipase 56 (23-300) U/L Urine Color Yellow (Yellow) Urine Appearance Clear (Clear) Urine pH 5.5 (5.0-9.0) Ur Specific [place] 1.016 (1.001-1.035) Urine Protein Negative (Negative) mg/dL Urine Glucose (UA) Negative (Negative) mg/dL Urine Ketones 1+ H (Negative) mg/dL Ur Blood (Man) Negative (Negative) Urine Nitrate Negative (Negative) Urine Bilirubin Negative (Negative) Urine Urobilinogen 0.2 (<2.0) mg/dL Leukocyte Esterase Rfl Negative (Negative) ALVARO/UL Imaging Data Radiologist's impression: ITS Impressions Abdomen/Pelvis CT 07/14/24 15:53 IMPRESSION: 1. Thoracic fluid throughout nonobstructed small bowel and diarrhea some liquid stool in cecum consistent with diarrhea which could be seen in the setting of gastroenteritis. No other acute intra-abdominal/pelvic process. Critical Care Time Critical Care Time Critical Care Time: No Discharge Plan Discharge Clinical Impression: Abdominal pain, Irritable bowel disease Patient Disposition: Home Condition: Improved Instructions: Irritable Bowel Syndrome (DC), Abdominal Pain (ED) Additional Instructions: RETURN IF SYMPTOMS ARE WORSENING , CALL YOUR FAMILY PHYSICIAN FOR APPOINTMENT, TAKE TYLENOL NEEDED FOR ACHES AND PAIN, CONTINUE HOME MEDICATIONS. GET METAMUCIL [id number] Patient Language: Kenyan Prescriptions: New dicyclomine 20 mg tablet 20 mg PO QID PRN (Reason: abdominal pain) Qty: 20 0RF No Action triamcinolone acetonide 0.1 % ointment 1 applic topical TID PRN (Reason: dermatitis) Qty: 80 0RF alendronate [Fosamax] 70 mg tablet 70 mg PO WEEKLY Qty: 12 2RF cyclobenzaprine 5 mg tablet 5 mg PO TID PRN (Reason: muscle spasm) Qty: 20 0RF cholecalciferol (vitamin D3) 50 mcg (2,000 unit) capsule 50 mcg PO DAILY Qty: 90 2RF Follow-up/Referrals: Casey Cottrell MD [Primary Care Provider] -
[2024-07-14 14:25] VITALS: BP 120/59; PULSE 76; RESP 16; O2SAT 98
[2024-07-14] MEDS: SODIUM CHLORIDE 0.9% IV 1,000 ML 999 ML IV CONT (14:25)
[2024-07-14 14:54] LABS: Lactic Acid Reflex 1.6 mmol/L (0.7-2.0)
[2024-07-14 14:55] LABS: Basophils Absolute Auto 0.1 K/mm3 (0.0-0.1); Basophils Percent Auto 0.4 % (0.2-1.2); Eosinophils Percent Auto 0.2 % (0-4.4); Hematocrit 39.5 % (37.0-47.0); Hemoglobin 12.7 g/dL (12.0-15.0); Immature Granulocyte Absolute 0.04 K/mm3 (0.00-0.031); Immature Granulocyte Percent A 0.3 % (0-0.5); Lymphocytes Absolute Auto 0.87 K/mm3 (0.9-3.2); Lymphocytes Percent Auto 7.4 % (18.3-44.2); Mean Corpuscular HGB Conc 32.2 g/dl (32-36); Mean Corpuscular Hemoglobin 29.9 pg (26-34); Mean Corpuscular Volume 92.9 fl (80-100); Mean Platelet Volume 10.2 fl (7.4-10.4); Monocytes Absolute Auto 0.3 K/mm3 (0.1-0.6); Monocytes Percent Auto 2.6 % (2.6-8.5); Neutrophils Absolute Auto 10.5 K/mm3 (1.3-6.7); Neutrophils Percent Auto 89.1 % (45.5-73.1); Platelet Count Result 260 k/mm3 (150-375); Red Blood Count 4.25 M/mm3 (4.2-5.4); Red Cell Distribution Width 14.3 % (11.5-14.5); White Blood Count 11.7 K/mm3 (4.5-10.0)
[2024-07-14 14:56] LABS: Alanine Aminotransferase 19 U/L (6-35); Albumin Level 4.4 g/dL (3.5-5.1); Alkaline Phosphatase 54 U/L (38-126); Anion Gap 13 mmol/L (4-12); Aspartate Amino Transferase 29 U/L (14-36); Bilirubin,Total 0.2 mg/dL (0.2-1.3); Blood Urea Nitrogen 16 mg/dL (7-17); Calcium 9.5 mg/dL (8.4-10.2); Carbon Dioxide 23 mmol/L (22-30); Chloride 100 mmol/L (98-107); Estimated CRCL calculation 42 ml/min; Estimated Glomerular Filt Rate > 60; Glucose 134 mg/dL (65-110); Lipase 56 U/L (23-300); Potassium 4.1 mmol/L (3.4-5.0); Sodium 136 mmol/L (137-145)
--- OUTSIDE RECORDS SUMMARY | 2024-07-14 15:06 | XMS_ITS | Clinical Summary ---
Author Organization [facility] Address [address] [address] Phone Care Team Providers Care Breakfast And Room Attendant Name Role Phone Casey Cottrell MD Primary Care Provider [phone] Medications dicyclomine (BENTYL) 10 MG Capsule Take [...] topic Insurance MEDICARE C [employer] Care Teams Breakfast And Room Attendant Relationship Specialty Start Date End Date Casey Cottrell MD [address] [place] [address] PCP - General Internal Medicine 04/28/19
[2024-07-14 15:37] LABS: Add Urine Microscopic? NO; Appearance Urine Clear (Clear); Bilirubin Urine Negative (Negative); Blood Urine Negative (Negative); Color Urine Yellow (Yellow); Glucose Urine UA Negative (Negative); Ketones Urine 1+ mg/dL (Negative); Leukocyte Esterase Ur Negative LEU/UL (Negative); Nitrate Urine Negative (Negative); Protein Urine Negative (Negative); Specific Grav Ur 1.016 (1.001-1.035); Urobilinogen Urine 0.2 mg/dL (<2.0); pH Urine 5.5 (5.0-9.0)
--- NOTE | 2024-07-14 16:41 | PC.NURSE ---
Pt. able to transfer to commode independently. Pt. urinated in commode and returned to bed.
[2024-07-14 16:42] VITALS: BP 128/56; PULSE 75; RESP 16; O2SAT 96
[2024-07-14] MEDS: ONDANSETRON HCL ODT 4 MG TABLET PO (17:20)
[2024-07-14 17:31] VITALS: BP 127/73; PULSE 86; RESP 18; O2SAT 96
== END 2024-07-14 17:33 | disposition home or self-care (01) ==
PROVIDERS: Emergency Provider Emergency Medicine; PCP Emergency Medicine
DX: K58.9 Irritable bowel syndrome, unspecified (principal); E78.5 Hyperlipidemia, unspecified; E55.9 Vitamin D deficiency, unspecified; K21.9 Gastro-esophageal reflux disease without esophagitis; M19.90 Unspecified osteoarthritis, unspecified site; M81.0 Age-related osteoporosis without current pathological fracture; F17.210 Nicotine dependence, cigarettes, uncomplicated; Z87.440 Personal history of urinary (tract) infections; Z86.0100 Personal history of colon polyps, unspecified; Z85.42 Personal history of malignant neoplasm of other parts of uterus; Z90.710 Acquired absence of both cervix and uterus; Z98.49 Cataract extraction status, unspecified eye
CPT/HCPCS: 36415; 74177; 80053; 81003; 83605; 83690; 85025; 93005; 96374; 99284; A9270; J1171; J7030; Q9967

== ENCOUNTER 2024-11-20 13:17 | Inpatient (IN) | payer MEDICARE, SELFPAY ==
[2024-11-20] VITALS (8 sets, daily range): BP systolic 136–165; BP diastolic 67–98; PULSE 84–89; RESP 15–22; TEMP 36.6; O2SAT 90–98; BMI 23.0
--- NOTE | ~2024-11-20 | CT_ITS ---
EXAMINATION: CT abdomen pelvis w con DATE: 11/20/2024 14:44 INDICATION: abdominal pain TECHNIQUE: Computed tomography (CT) of the abdomen and pelvis was performed with 100 mL Omnipaque-350 intravenous contrast. Automated exposure control and iterative reconstruction technique were employe d. The dose-length product was 311.91 mGy-cm. COMPARISON: 07/14/2024, 01/28/2012; MR abdomen 07/11/2008. FINDINGS: Lower thorax: Cardiomegaly. Coronary artery calcifications. Peripheral reticulation and honeycombing, possible UIP pattern. Liver: Subcentimeter right lobe hypodensity, too small to characterize, likely represents a cyst or h emangioma. Biliary/Gallbladder: Gallbladder is normal. Pericholecystic fluid, likely related to ascites. No bile duct dilation. Pancreas: Mild pancreatic duct dilation to 3 mm, a chronic finding. Spleen: Normal. Adrenals:Nodular, indeterminate density bilateral adrenal enlargement, a chronic stable finding likel y related to adrenal hyperplasia or adenomas. Kidneys: No obstructing stone or hydronephrosis. Bilateral simple renal cysts. Indeterminate density 1.5 cm right posterior midpole lesion, no concerning findings in prior MRI, likely proteinaceous or h emorrhagic cyst. GI tract: Multiple loops of dilated small bowel in the upper and lower abdomen, with normal caliber s mall bowel noted proximally and distally and likely proximal and distal transition points. Swirling o f mesenteric vessels that supply the dilated bowel loops, with severe mesenteric edema and prominent interloop fluid. Areas of irregular bowel wall enhancement in a loop of small bowel in the deep pelvi s. Normal appendix. Mesentery/Peritoneum: No ascites, mass, or free air. Retroperitoneum: No mass. Atherosclerotic calcifications of intra-abdominal arterial vessels. Patent SMA and portal/mesenteric veins. Pelvis: Empty urinary bladder. Absent or atrophic uterus. Normal left ovary. Right ovary not confiden tly visualized. Soft Tissues: Small uncomplicated fat-containing umbilical hernia. Bones: No acute osseous finding. Stable L3-4 anterolisthesis. Uncomplicated appearing posterior lumb ar fusion hardware. Prior laminectomies. IMPRESSION: Small bowel obstruction, with CT findings of C-loop configuration. Swirling mesenteric vessels may re flect a component of volvulus, possibly through a mesenteric defect. Early bowel wall ischemia/necros is is suspected in a loop of small bowel in the deep pelvis. Small volume, nonsimple ascites. No pneumoperitoneum. Reviewed, dictated and finalized at location K. IMPRESSION: Small bowel obstruction, with CT findings of C-loop configuration. Swirling mes enteric vessels may reflect a component of volvulus, possibly through a mesente joey defect. Early bowel wall ischemia/necrosis is suspected in a loop of small bowel in the deep pelvis. Small volume, nonsimple ascites. No pneumoperitoneum.
--- NOTE | ~2024-11-20 | XR_ITS ---
EXAMINATION: XR chest 1V portable 11/24/2024 14:23 INDICATION: Hypoxia.Rales TECHNIQUE: A single AP semiupright portable frontal image of the chest was obtained. COMPARISON: 03/08/2007 FINDINGS: Nasogastric tube courses below the diaphragm, its tip is not visualized. Cardiomediastinal silhouette is moderately enlarged. No pneumothorax. Probable small bilateral pleural effusions, larger on the left. Patchy opacities in the mid and lower lungs, greater on the left. There is a 1.1 cm sclerotic lesion in the proximal left humerus and a 1.5 cm sclerotic lesion in the proximal left humerus. IMPRESSION: 1: Patchy opacities in the mid and lower lungs, greater on the left. Differential includes but is not limited to edema or pneumonia. Recommend follow-up to resolution. Consider a chest CT for further assessment. 2. Probable small bilateral pleural effusions, larger on the left. 3. There is a 1.1 cm sclerotic lesion in the proximal left humerus and a 1.5 cm sclerotic lesion in the proximal left humerus. Differential includes bone islands or metastatic bone lesions. A total body bone scan is recommended. Reviewed, dictated and finalized at location A. IMPRESSION: 1: Patchy opacities in the mid and lower lungs, greater on the left. Different ial includes but is not limited to edema or pneumonia. Recommend follow-up to r esolution. Consider a chest CT for further assessment. 2. Probable small bilateral pleural effusions, larger on the left. 3. There is a 1.1 cm sclerotic lesion in the proximal left humerus and a 1.5 cm sclerotic lesion in the proximal left humerus. Differential includes bone maurice nds or metastatic bone lesions. A total body bone scan is recommended.
--- NOTE | ~2024-11-20 | XR_ITS ---
EXAM: XR abdomen gastric tube insert DATE: 11/20/2024 22:06 HISTORY: verify tube placement . COMPARISON: CT abdomen pelvis, same date. FINDINGS: NG tube, tip and side port projecting over the stomach Clear lung bases. Multiple loops of dilated small bowel in the upper abdomen. No organomegaly. No abnormal abdominal calcification. Dege nerative changes in the spine. Mild scoliosis. Partially visualized lumbar fusion hardware. IMPRESSION: NG tube, in good position. Small bowel obstruction. Reviewed, dictated and finalized at location K.
[2024-11-20 13:34] LABS: Hematocrit 43.5 % (37.0-47.0); Hemoglobin 14.5 g/dL (12.0-15.0); Immature Granulocyte Percent A 0.7 % (0-0.5); Lymphocytes Absolute Auto 0.98 K/mm3 (0.9-3.2); Mean Corpuscular HGB Conc 33.3 g/dl (32-36); Mean Corpuscular Hemoglobin 29.7 pg (26-34); Mean Corpuscular Volume 89.0 fl (80-100); Nucleated Red Blood Cells Absolute Auto 0.000 K/mm3 (0.0-0.012); Nucleated Red Blood Cells Perc 0.0 % (0.0-0.2); Platelet Count Result 309 k/mm3 (150-375); Red Blood Count 4.89 M/mm3 (4.2-5.4); White Blood Count 23.0 K/mm3 (4.5-10.0)
--- OUTSIDE RECORDS SUMMARY | 2024-11-20 13:56 | XMS_ITS | Clinical Summary ---
Author Organization [facility] Address [address] [address] Phone Care Team Providers Care Clamp Jig Assembler Name Role Phone Casey Cottrell MD Primary Care Provider [phone] Medications dicyclomine (BENTYL) 10 MG Capsule Take [...] Health Maintenance Due Date Last Done Comments Hepatitis C Virus (HCV) Screening 1945 TdaP Immunization 1945 Pneumococcal Immunization (5 0+ years) (1 of 1 - PCV) 08/29/1993 Zoster Immunization (1 of 2) 08/29/1993 Respiratory Syncytial Virus (RSV) Immunization (Adult) (1 - 1-dose 75+ series) 08/29/2018 SARS-COV-2 Immunization ( - season) 2023 Influenza Immunization (#1) 2024 Hepatitis B Immunization Aged Out No longer eligible based on patient's age to complete this topic Human Papillomavirus (HPV) Immunization Aged Out No longer eligible b ased on patient's age to complete this topic Meningococcal Immunization (ACWY) Aged Out No longer eligible based on patient's age to complete this topic Rotavirus Immunization Aged Out No lo nger eligible based on patient's age to complete this topic Insurance MEDICARE C [facility] Care Teams Clamp Jig Assembler Relationship Specialty Start Date End Date Casey Cottrell MD [address] [place] [address] PCP - General Internal Medicine 04/28/19
[2024-11-20 14:01] LABS: Alanine Aminotransferase 25 U/L (6-35); Albumin Level 4.5 g/dL (3.5-5.1); Alkaline Phosphatase 60 U/L (38-126); Anion Gap 11 mmol/L (4-12); Aspartate Amino Transferase 37 U/L (14-36); Bilirubin,Total 0.6 mg/dL (0.2-1.3); Blood Urea Nitrogen 17 mg/dL (7-17); Calcium 10.1 mg/dL (8.4-10.2); Carbon Dioxide 26 mmol/L (22-30); Chloride 96 mmol/L (98-107); Estimated CRCL calculation 36 ml/min; Estimated Glomerular Filt Rate > 60; Glucose 152 mg/dL (65-110); Lipase 31 U/L (23-300); Potassium 3.9 mmol/L (3.4-5.0); Sodium 133 mmol/L (137-145); Total Protein 7.7 g/dL (6.3-8.2)
[2024-11-20] MEDS: MORPHINE SULFATE (*CRX) 2 MG/ML INJ IV PUSH (14:19)
[2024-11-20] MEDS: ONDANSETRON INJ 4 MG/2 ML VIAL IV PUSH (14:20)
[2024-11-20] MEDS: SODIUM CHLORIDE 0.9% IV 1,000 ML 150 ML IV CONT (14:20)
[2024-11-20 14:35] LABS: Add Urine Microscopic? YES; Appearance Urine Clear (Clear); Glucose Urine UA Negative (Negative); Leukocyte Esterase Ur Negative LEU/UL (Negative); Need Manual Microscopic Reviewed; Nitrate Urine Negative (Negative); Specific Grav Ur 1.015 (1.001-1.035)
[2024-11-20] MEDS: PIPERACILLIN/TAZOBACTAM SOD 3.375 GM in SODIUM CHLORIDE 0.9% IV 50 ML 100 ML IVPB (15:51)
[2024-11-20] MEDS: HYDROmorphone HCL INJ (*CRX) 1 MG/ML SYR (15:56)
--- NOTE | 2024-11-20 16:23 | ED.ABDPAIN ---
HPI - Abdominal Pain General Chief Complaint: Abdominal Pain Stated Complaint: RUQ pain & constipation x 5 days Time Seen by Provider: 11/20/24 13:35 Source: patient Mode of arrival: EMS Limitations: no limitations History of Present Illness HPI narrative: 79-year-old with a history of hyperlipidemia, recurrent small-bowel obstructions, anxiety disorder, status post hysterectomy here with a complains of diffuse abdominal pain for past 5 days. She also states that she has been constipated no history of fever or chills. MD elicited complaint: abdominal pain Pertinent past history: constipation and other (recurrent SBO) Onset (ago): day(s) (5) Pain Consistency: constant Location: diffuse Severity: moderate Quality: aching Radiation: none Migration to: no migration Exacerbating factors: nothing Relieving factors: nothing Associated symptoms: nausea Related Data Allergies Allergy/AdvReac Type Severity Reaction Status Date / Time nitrofurantoin (From Allergy Intermediate Hives Verified 08/12/24 12:49 Macrobid) erythromycin base AdvReac Unknown Nausea and Verified 08/12/24 12:49 Vomiting Review of Systems Review of Systems: All systems reviewed & are unremarkable except as noted in HPI and below Constitutional: Constitutional: Reports no additional constitutional complaints Eyes: Eyes: Reports no additional eye complaints ENT: Reports system reviewed and no additional complaints, except as documented Cardiovascular: Cardiovascular: Reports no additional cardiovascular complaints Respiratory: Respiratory: Reports no additional respiratory complaints Gastrointestinal: Gastrointestinal: Reports as per HPI Musculoskeletal: Musculoskeletal: Reports no additional musculoskeletal complaints [facility] Past Medical History Medical History AVM (arteriovenous malformation) of colon Urinary frequency Sinus congestion Dysuria Excessive ear wax UTI (urinary tract infection) Acute non-recurrent maxillary sinusitis Anxiety Chronic right-sided low back pain without sciatica Current moderate episode of major depressive disorder without prior episode Expiratory wheezing Fatigue Recurrent sinusitis Right ear pain Vitamin D deficiency Hemorrhoids Spinal stenosis Depression Back pain Arthritis Uterine cancer GERD (gastroesophageal reflux disease) Optic nerve tumor Colon polyps Cataracts, bilateral Bronchitis Hyperlipidemia Migraine Surgical History Surgical History Hx of colonoscopy with removal of colonic polyps Hx of cataract surgery Previous back surgery Hx of abdominal hysterectomy Family History Family History Father Acute myocardial infarction, Onset Age: 73 Patient's father is Mother Carcinoma of colon, Onset Age: 54 Patient's mother is Sibling Patient's brother is Social History Social History Smoking packs per day: 1.5 Smoking cigarettes per day: 30.0 Years smoked: 60 Smoking pack-years: 90.00 Smoking status: Current every day smoker Alcohol intake: never Do You Feel Safe in your Home?: Yes Lack of Transportation: No Lack of Food: Never True Current Housing: I Have Housing Concerned About Future Housing: No Difficulty Paying Gas/Electric Bills: No Difficulty Paying for Meds: No Currently Unemployed: No Education: Associate Degree Difficulty w/ Childcare or Family Care: No Gender identity (if verbalized by the patient): Female Exam Narrative: GENERAL: Well-appearing, well-nourished, and in no acute distress. HEAD: Normocephalic, atraumatic. EYES: PERRLA and EOMI. ENT: Nares clear, no rhinorrhea or epistaxis. Mucous membranes moist. NECK: Supple. CHEST: Clear to auscultation. No respiratory distress. HEART: Regular rate and rhythm. No murmur heard. Normal peripheral pulses. ABDOMEN: Soft, diffuse tenderness , nondistended, normal active bowel sounds. EXTREMITIES: Normal range of motion. No edema. SKIN: Warm, dry, no rash. NEURO: No focal deficits. Alert and oriented x3. PSYCH: Normal mood and affect. Course Course Emergency Course: pt comfortably lying on the right lateral side informed her about her lab and CT , she was not surprised about bowel obstruction.i did discuss with Dr. Trevon HADLEY , admit . i notified Hospitalist will admit Vital Signs Vital signs: Vital Signs Temperature 36.6 C 11/20/24 13:17 Pulse Rate 84 11/20/24 13:17 Respiratory Rate 22 H 11/20/24 13:17 Pulse Oximetry 98 11/20/24 13:17 Oxygen Delivery Room Air 11/20/24 13:17 Temperature 36.6 C 11/20/24 14:30 Pulse Rate 88 11/20/24 14:30 Respiratory Rate 18 11/20/24 14:30 Blood Pressure 138/78 11/20/24 14:30 Pulse Oximetry 98 11/20/24 14:30 Oxygen Delivery Room Air 11/20/24 13:17 MDM - Abdominal Pain MDM Narrative Medical decision making narrative: 79-year-old with a history of recurrent small-bowel obstruction here with a complains of abdominal pain for 5 days with some nausea and constipation no fever chills exam diffuse tenderness but no obvious signs of peritonitis. Will obtain CT of the abdomen start IV fluids and pain control. Differential Diagnosis Differential diagnosis: Likely abdominal pain, constipation, diverticulitis and small bowel obstruction Medical Records Attestation: I reviewed the patient's medical records. Lab Data Attestation: I reviewed the patient's lab results. 11/20/24 13:28 11/20/24 13:28 Labs: Lab Results 11/20/24 11/20/24 11/20/24 Range/Units 13:28 14:10 15:50 WBC 23.0 H (4.5-10.0) K/mm3 RBC 4.89 (4.2-5.4) M/mm3 Hgb 14.5 (12.0-15.0) g/dL Hct 43.5 (37.0-47.0) % MCV 89.0 (80-100) fl MCH 29.7 (26-34) pg MCHC 33.3 (32-36) g/dl RDW 14.4 (11.5-14.5) % Plt Count 309 (150-375) k/mm3 MPV 9.4 (7.4-10.4) fl Immature Gran % (Auto) 0.7 H (0-0.5) % Neut % (Auto) 90.6 H (45.5-73.1) % Lymph % (Auto) 4.3 L (18.3-44.2) % [place] % (Auto) 4.2 (2.6-8.5) % Eos % (Auto) 0.0 (0-4.4) % Baso % (Auto) 0.2 (0.2-1.2) % Lymph # (Auto) 0.98 (0.9-3.2) K/mm3 [place] # (Auto) 1.0 H (0.1-0.6) K/mm3 Eos # (Auto) 0.0 (0-0.3) K/mm3 Baso # (Auto) 0.1 (0.0-0.1) K/mm3 Abs Immat Gran (auto) 0.17 H (0.00-0.031) K/mm3 Absolute Neuts (auto) 20.9 H (1.3-6.7) K/mm3 Absolute Nucleated RBC 0.000 (0.0-0.012) K/mm3 Nucleated RBC % 0.0 (0.0-0.2) % Sodium 133 L (137-145) mmol/L Potassium 3.9 (3.4-5.0) mmol/L Chloride 96 L (98-107) mmol/L Carbon Dioxide 26 (22-30) mmol/L Anion Gap 11 (4-12) mmol/L BUN 17 (7-17) mg/dL Creatinine 0.89 (0.7-1.0) mg/dL Estim Creat Clear Calc 36 ml/min Estimated GFR > 60 (59 - ) Glucose 152 H (65-110) mg/dL Lactic Acid 2.4 H (0.7-2.0) mmol/L Calcium 10.1 (8.4-10.2) mg/dL Total Bilirubin 0.6 (0.2-1.3) mg/dL AST 37 H (14-36) U/L ALT 25 (6-35) U/L Alkaline Phosphatase 60 (38-126) U/L Total Protein 7.7 (6.3-8.2) g/dL Albumin 4.5 (3.5-5.1) g/dL Lipase 31 (23-300) U/L Urine Color Yellow (Yellow) Urine Appearance Clear (Clear) Urine pH 5.5 (5.0-9.0) Ur Specific [place] 1.015 (1.001-1.035) Urine Protein Trace (Negative) mg/dL Urine Glucose (UA) Negative (Negative) mg/dL Urine Ketones Trace H (Negative) mg/dL Ur Blood (Man) Negative (Negative) Urine Nitrate Negative (Negative) Urine Bilirubin Negative (Negative) Urine Urobilinogen 0.2 (<2.0) mg/dL Add Ur Microanalysis Reviewed Leukocyte Esterase Rfl Negative (Negative) ALVARO/UL Urine RBC 0-2 (0-2) /hpf Urine WBC 0-5 (0-3) /hpf Ur Squamous Epith Cells None seen (Few) /hpf Urine Bacteria None seen /hpf Urine Casts 11-20 Imaging Data Radiologist's impression: ITS Impressions Abdomen/Pelvis CT 11/20/24 14:45 IMPRESSION: Small bowel obstruction, with CT findings of C-loop configuration. Swirling mesenteric vessels may reflect a component of volvulus, possibly through a mesenteric defect. Early bowel wall ischemia/necrosis is suspected in a loop of small bowel in the deep pelvis. Small volume, nonsimple ascites. No pneumoperitoneum. Discharge Plan Discharge Clinical Impression: SBO (small bowel obstruction) Patient Disposition: Still a Patient Condition: Stable Instructions: Antibiotic Form Patient Language: Yakut Prescriptions: No Action triamcinolone acetonide 0.1 % ointment 1 applic topical TID PRN (Reason: dermatitis) Qty: 80 0RF alendronate [Fosamax] 70 mg tablet 70 mg PO WEEKLY Qty: 12 2RF cyclobenzaprine 5 mg tablet 5 mg PO TID PRN (Reason: muscle spasm) Qty: 20 0RF cholecalciferol (vitamin D3) 50 mcg (2,000 unit) capsule 50 mcg PO DAILY Qty: 90 2RF dicyclomine 20 mg tablet 20 mg PO QID Qty: 360 2RF Follow-up/Referrals: Casey Cottrell MD [Primary Care Provider] - Time of Disposition: 16:35
--- NOTE | 2024-11-20 17:35 | PC.NURSE ---
NGT placement attempted and pt refuses. She grabs kicks and squeezes and scratched this RNs arms during attempt. Pt is A/O x 4 and refuses NGT
--- NOTE | 2024-11-20 18:13 | ADMGEN ---
This patient, Rody Wynn, was admitted to [facility] Room 331-01. Patient/family oriented to hospital policies and general routines including ID bracelet, bed and alarms, visiting hours, pain management, procedures, bathroom and other care routines, personal items, smoking policy, room service/diet, and visiting hours. Information on how to activate the Rapid Response Team has been discussed. Patient/Family are encouraged to report perceived risks to care and to ask questions if they do not understand what they are told or what they should do.
--- NOTE | 2024-11-20 18:48 | PC.NURSE ---
Attempted NG tube placement without success.
[2024-11-20] MEDS: HYDROmorphone HCL INJ (*CRX) 1 MG/ML SYR 0.5 MG IV PUSH ×3 (19:46→23:38)
--- NOTE | 2024-11-20 21:16 | P.HP_ITS ---
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 Patient states that she frequently has acute onset of abdominal pain rating at severe in nature she has been pill on Bentyl in the past however she feels that there are more side effects than benefits of it. She states that her stomach is firm and distended but is progressively gotten more painful over the last 4-5 days. She states that she has not had a bowel movement in several days. She states that she is not able to eat or drink. Patient denies fevers chills. Eighty lab work shows leukocytosis at 23.0,, sodium 133, chloride of 96, glucose of 152, lactic acid of 2.4 followed by 1.9, AST 37, UA is negative for infection. CT read shows small bowel obstruction, with CT findings of C-loop configuration. Swirling mesenteric vessels may reflect a component of volvulus, possibly through a mesenteric defect. Early bowel wall ischemia/necrosis is suspected in a loop of small bowel in the deep pelvis. On bedside exam patient is not peritoneal however she does have tenderness on exam. Dr. Huang called [facility] to discuss CT read and patient's assessment. Dr. Huang states that he personally reviewed the CT read do not appreciate ischemia or necrosis of small bowel, requesting ED repeat lactic acid. He states that he would like to give the patient a chance to resolve on her own however update if lactic is increasing, patient becomes peritoneal or pain is under control. Review of Systems Review of Systems: 12 systems were reviewed and are negativ e except for as per HPI. [facility] Past Medical History Medical History (Updated 11/20/24 @ 22:59 by Lisbeth Santiago, BUSINESS DEVELOPMENT OFFICER) AVM (arteriovenous malformation) of colon Urinary frequency Sinus congestion Dysuria Excessive ear wax UTI (urinary tract infection) Acute non-recurrent maxillary sinusitis Anxiety Chronic right-sided low back pain without sciatica Current moderate episode of major depressive disorder without prior episode Expiratory wheezing Fatigue Recurrent sinusitis Right ear pain Vitamin D deficiency Hemorrhoids Spinal stenosis Depression Back pain Arthritis Uterine cancer GERD (gastroesophageal reflux disease) Optic nerve tumor Colon polyps Cataracts, bilateral Bronchitis Hyperlipidemia Migraine Surgical History Surgical History Hx of colonoscopy with removal of colonic polyps Hx of cataract surgery Previous back surgery Hx of abdominal hysterectomy Family History Family History Father Acute myocardial infarction, Onset Age: 73 Patient's father is Mother Carcinoma of colon, Onset Age: 54 Patient's mother is Sibling Patient's brother is Social History Social History Smoking packs per day: 2 Smoking cigarettes per day: 40.0 Years smoked: 75 Smoking pack-years: 150.00 Smoking status: Current every day smoker Tobacco type: cigarettes Alcohol intake: never Substance use: never Do You Feel Safe in your Home?: Yes Lack of Transportation: No Lack of Food: Never True Current Housing: I Have Housing Concerned About Future Housing: No Difficulty Paying Gas/Electric Bills: No Difficulty Paying for Meds: No Currently Unemployed: No Education: High School Diploma/GED Difficulty w/ Childcare or Family Care: No Gender identity (if verbalized by the patient): Female Spiritual care concerns: No Meds Home Medications and Allergies Home Medications ?Medication ?Instructions ?Recorded ?Confirmed ?Type cholecalciferol (vitamin D3) 50 50 mcg PO DAILY #90 caps 06/08/24 11/20/24 Rx mcg (2,000 unit) capsule dicyclomine 20 mg tablet 20 mg PO QID #360 tabs 07/26/24 11/20/24 Rx Allergies Allergy/AdvReac Type Severity Reaction Status Date / Time nitrofurantoin (From Allergy Intermediate Hives Verified 11/20/24 18:36 Macrobid) erythromycin base AdvReac Unknown Nausea and Verified 11/20/24 18:36 Vomiting Vital Signs Vital Signs - 24 hr 11/20/24 13:17 11/20/24 13:23 11/20/24 14:30 Temperature 98 F 97.9 F Pulse Rate 84 88 Respiratory Rate 22 H 18 Blood Pressure 136/79 138/78 Pulse Oximetry 98 98 Oxygen Delivery Room Air 11/20/24 14:59 11/20/24 16:01 11/20/24 17:01 Temperature 97.9 F 97.8 F 97.9 F Pulse Rate 85 89 84 Respiratory Rate 16 18 15 Blood Pressure 146/98 H 165/87 H 147/67 H Pulse Oximetry 96 93 90 Oxygen Delivery 11/20/24 18:30 Temperature Pulse Rate Respiratory Rate Blood Pressure Pulse Oximetry Oxygen Delivery Room Air Exam Narrative: General: well appearing, appears stated age. HEENT: normocephalic, atraumatic. Mucous membranes moist. EOMI, PERRLA, b ilateral sclera anicteric, no conjunctival injection. Neck supple without JVD, lymphadenopathy, or bruit. Respiratory: clear to ascultation bilaterally. No rales/rhonic/wheezes. Cardiovascular: Regular rate and rhythm, normal S1-S2 upon ascultation. No murmurs, rubs, or clicks. PMI is nondisplaced, capillary refill less than 3 second. Abdomen: Distended, firm, hypoactive bowel sounds. Acute tenderness to right lower quadrant. Non peritoneal Extremities: No cyanosis, clubbing, or edema present. Pulses are palpable 2/2. Active ROM to all four extremities. Neuro: Alert and orientated x 4. PERRLA. Cranial nerves 2-12 intact without focal deficit. Skin: Warm, dry, and intact, without rash, erythema, or lesion. Psych: pleasant, cooperative, normal speech, normal affect, no hallucinations, no dysarthia H&P: Results Labs Labs: Short CBC 11/20/24 Range/Units 13:28 WBC 23.0 H (4.5-10.0) K/mm3 Hgb 14.5 (12.0-15.0) g/dL Hct 43.5 (37.0-47.0) % Plt Count 309 (150-375) k/mm3 [facility] 11/20/24 13:28 Sodium 133 L Potassium 3.9 Chloride 96 L Carbon Dioxide 26 BUN 17 Creatinine 0.89 Glucose 152 H Calcium 10.1 Liver Function 11/20/24 Range/Units 13:28 Total Bilirubin 0.6 (0.2-1.3) mg/dL AST 37 H (14-36) U/L ALT 25 (6-35) U/L Alkaline Phosphatase 60 (38-126) U/L Albumin 4.5 (3.5-5.1) g/dL Urine 11/20/24 Range/Units 14:10 Urine Color Yellow (Yellow) Urine Appearance Clear (Clear) Urine pH 5.5 (5.0-9.0) Ur Specific [place] 1.015 (1.001-1.035) Urine Protein Trace (Negative) mg/dL Urine Glucose (UA) Negative (Negative) mg/dL Assessment and Plan Assessment and plan (1) SBO (small bowel obstruction): Code(s): K56.609 - Unspecified intestinal obstruction, unspecified as to partial versus complete obstruction Status: Acute Assessment and Plan: Repeat lactic acid Patient had for unsuccessful attempts to pass NG in the emergency room gigi Johnson, her her cane ordered KUB reviewed NG okay to use low intermittent suction Pain management IV fluid NPO Hold home (2) Anxiety: Code(s): F41.9 - Anxiety disorder, unspecified Status: Acute Assessment and Plan: IV Ativan x1 for NG placement (3) Leukocytosis: Code(s): D72.829 - Elevated white blood cell count, unspecified Status: Acute Assessment and Plan: Possible GI source IV Zosyn Blood cultures pending UA within normal limits (4) Hyponatremia: Code(s): E87.1 - Hypo-osmolality and hyponatremia Status: Acute Assessment and Plan: IVF BMP in the morning (5) Lactic acidosis: Code(s): E87.20 - Acidosis, unspecified Status: Acute Assessment and Plan: Resolved with IV fluid (6) Hyperglycemia: Code(s): R73.9 - Hyperglycemia, unspecified Status: Acute Assessment and Plan: Patient does not have history of diabetes Hemoglobin A1c pending (7) Hyperlipidemia: Code(s): E78.5 - Hyperlipidemia, unspecified Status: Acute Assessment and Plan: Patient does not appear to be on home medication Quality VTE Prophylaxis VTE prophylaxis: mechanical ordered Hospitalist MIPS Advance Care Plan I have confirmed that the patient's Advanced Care Plan is present, code status is documented, or surrogate decision maker is listed in patient medical record.: Yes Medication Reconciliation I have utilized all available resources to obtain, update and review the patients current medications (includes all prescriptions, OTC, herbals, cannabis, and nutritional supplements).: Yes
[2024-11-20] MEDS: LIDOCAINE 2% GEL UROJET 10 ML PKG MUCOUS MEM (21:31)
[2024-11-20] MEDS: BENZOCAINE (*SP) 60 ML SPRAY CAN (HURRICAINE) 1 SPRAY MUCOUS MEM (21:31)
[2024-11-20] MEDS: LORazepam INJ (*CRX) 2 MG/ML VIAL 0.5 MG IV PUSH (21:47)
[2024-11-20] MEDS: SODIUM CHLORIDE 0.9% IV 1,000 ML 125 ML IV CONT (22:02)
[2024-11-20] MEDS: PIPERACILLIN/TAZOBACTAM SOD 2.25 GM in SODIUM CHLORIDE 0.9% IV 50 ML 100 ML IVPB (23:43)
[2024-11-21] VITALS (16 sets, daily range): BP systolic 137–175; BP diastolic 62–82; PULSE 81–115; RESP 15–22; TEMP 36.4–37.7; O2SAT 92–100
[2024-11-21] MEDS: KETOROLAC 15 MG/ML VIAL (*BKC) IV PUSH (03:29)
[2024-11-21] MEDS: PIPERACILLIN/TAZOBACTAM SOD 2.25 GM in SODIUM CHLORIDE 0.9% IV 50 ML 100 ML IVPB ×2 (05:44→11:49)
[2024-11-21] MEDS: HYDROmorphone HCL INJ (*CRX) 1 MG/ML SYR 0.5 MG IV PUSH (06:18)
[2024-11-21 06:25] LABS: Hematocrit 47.5 % (37.0-47.0); Hemoglobin 15.2 g/dL (12.0-15.0); Immature Granulocyte Percent A 0.6 % (0-0.5); Lymphocytes Absolute Auto 0.76 K/mm3 (0.9-3.2); Mean Corpuscular HGB Conc 32.0 g/dl (32-36); Mean Corpuscular Hemoglobin 29.4 pg (26-34); Mean Corpuscular Volume 91.9 fl (80-100); Nucleated Red Blood Cells Absolute Auto 0.000 K/mm3 (0.0-0.012); Nucleated Red Blood Cells Perc 0.0 % (0.0-0.2); Platelet Count Result 304 k/mm3 (150-375); Red Blood Count 5.17 M/mm3 (4.2-5.4); White Blood Count 21.5 K/mm3 (4.5-10.0)
[2024-11-21 06:45] LABS: Anion Gap 5 mmol/L (4-12); Blood Urea Nitrogen 18 mg/dL (7-17); Calcium 8.8 mg/dL (8.4-10.2); Carbon Dioxide 24 mmol/L (22-30); Chloride 102 mmol/L (98-107); Estimated CRCL calculation 39 ml/min; Estimated Glomerular Filt Rate > 60; Glucose 145 mg/dL (65-110); Potassium 4.2 mmol/L (3.4-5.0); Sodium 131 mmol/L (137-145)
[2024-11-21] MEDS: SODIUM CHLORIDE 0.9% IV 1,000 ML 125 ML IV CONT (07:23)
--- NOTE | 2024-11-21 08:32 | P.CONGS_ITS ---
Assessment and Plan Assessment and plan (1) SBO (small bowel obstruction): Code(s): K56.609 - Unspecified intestinal obstruction, unspecified as to partial versus complete obstruction Status: Acute Assessment and Plan: * I reviewed the CT and discussed the findings with the patient. There are concerning findings on the CT for complete bowel obstruction and possible early ischemia. She continues to have pain despite NG tube placement which correlates with complete bowel obstruction. She is however hemodynamically stable and lactic acid level is normal. I feel that given the CT findings surgical intervention should be highly considered. I discussed proceeding with exploratory laparotomy verses continued bowel rest and observation. Patient has concerns about surgery at her age, but after further discussions that she could decompensate without surgery, she is agreeable to proceeding. I have recommended exploratory laparotomy, possible bowel resection. I discussed the procedure, risks, benefits, and alternatives. Questions were answered. (2) Tobacco use: Code(s): Z72.0 - Tobacco use Status: Acute History of Present Illness Consult details Consult date: 11/21/24 Reason for consult: other (Small-bowel obstruction) Requesting physician: Macario Major MD Narrative: This is an 79-year-old woman who I am asked to see for a small-bowel obstruction. She presented to the emergency department on 11/20/2024 complaining of abdominal pain, nausea, vomiting which started about 5-6 days ago. Her last bowel movement was 5 days ago. She was only having a couple small bowel movements prior to that. She states that she is may be passing a small amount of flatus but is still complaining of her abdominal pain. She had symptoms somewhat similar to this about 4 months ago but not near as severe and she had gone to the ED and CT was normal at that time. Yesterday she was noted to have an elevated white blood count and CT showed evidence of a small-bowel obstruction with possible findings concerning for early bowel ischemia or necrosis. NG tube was placed but not much has come out of the NG yet. She continues to have frequent pain that did not really improve once NG tube was placed. Patient has had an open exploration for an abdominal mass about 50 years ago and also has a history open hysterectomy. She has never had a small bowel obstruction past. Review of Systems 2 Review of Systems: All systems reviewed & are unremarkable except as noted in HPI and below Constitutional: Constitutional: Reports as per HPI Eyes: Eyes: Denies change in vision ENT: Denies hearing loss, Denies neck pain and Denies sore throat Cardiovascular: Cardiovascular: Denies chest pain and Denies dyspnea Respiratory: Respiratory: Denies cough, Denies dyspnea and Denies wheezing Gastrointestinal: Gastrointestinal: Reports as per HPI Genitourinary: Genitourinary: Denies hematuria and Denies dysuria Musculoskeletal: Musculoskeletal: Denies arthralgias, Denies joint swelling and Denies neck pain Allergic/Immunologic: Allergic/Immunologic: Denies wheezing [facility] Past Medical History Medical History (Updated 11/20/24 @ 22:59 by Lisbeth Santiago, ENGINE OILER) AVM (arteriovenous malformation) of colon Urinary frequency Sinus congestion Dysuria Excessive ear wax UTI (urinary tract infection) Acute non-recurrent maxillary sinusitis Anxiety Chronic right-sided low back pain without sciatica Current moderate episode of major depressive disorder without prior episode Expiratory wheezing Fatigue Recurrent sinusitis Right ear pain Vitamin D deficiency Hemorrhoids Spinal stenosis Depression Back pain Arthritis Uterine cancer GERD (gastroesophageal reflux disease) Optic nerve tumor Colon polyps Cataracts, bilateral Bronchitis Hyperlipidemia Migraine Surgical History Surgical History Hx of colonoscopy with removal of colonic polyps Hx of cataract surgery Previous back surgery Hx of abdominal hysterectomy Family History Family History Father Acute myocardial infarction, Onset Age: 73 Patient's father is Mother Carcinoma of colon, Onset Age: 54 Patient's mother is Sibling Patient's brother is Social History Social History Smoking packs per day: 2 Smoking cigarettes per day: 40.0 Years smoked: 75 Smoking pack-years: 150.00 Smoking status: Current every day smoker Tobacco type: cigarettes Alcohol intake: never Substance use: never Do You Feel Safe in your Home?: Yes Lack of Transportation: No Lack of Food: Never True Current Housing: I Have Housing Concerned About Future Housing: No Difficulty Paying Gas/Electric Bills: No Difficulty Paying for Meds: No Currently Unemployed: No Education: High School Diploma/GED Difficulty w/ Childcare or Family Care: No Gender identity (if verbalized by the patient): Female Spiritual care concerns: No Meds Home Medications and Allergies Home Medications ?Medication ?Instructions ?Recorded ?Confirmed ?Type cholecalciferol (vitamin D3) 50 50 mcg PO DAILY #90 caps 06/08/24 11/20/24 Rx mcg (2,000 unit) capsule dicyclomine 20 mg tablet 20 mg PO QID #360 tabs 07/26/24 11/20/24 Rx Allergies Allergy/AdvReac Type Severity Reaction Status Date / Time nitrofurantoin (From Allergy Intermediate Hives Verified 11/20/24 18:36 Macrobid) erythromycin base AdvReac Unknown Nausea and Verified 11/20/24 18:36 Vomiting Vital Signs Vital Signs - 24 hr 11/20/24 13:17 11/20/24 13:23 11/20/24 14:30 Temperature 98 F 97.9 F Pulse Rate 84 88 Respiratory Rate 22 H 18 Blood Pressure 136/79 138/78 Pulse Oximetry 98 98 Oxygen Delivery Room Air 11/20/24 14:59 11/20/24 16:01 11/20/24 17:01 Temperature 97.9 F 97.8 F 97.9 F Pulse Rate 85 89 84 Respiratory Rate 16 18 15 Blood Pressure 146/98 H 165/87 H 147/67 H Pulse Oximetry 96 93 90 Oxygen Delivery 11/20/24 18:30 11/20/24 20:00 11/20/24 20:00 Temperature 98 F Pulse Rate 88 88 Respiratory Rate 16 16 Blood Pressure 155/69 H Pulse Oximetry 92 92 Oxygen Delivery Room Air Room Air 11/20/24 22:39 11/21/24 00:00 11/21/24 04:00 Temperature 98.2 F 98.1 F Pulse Rate 81 91 Respiratory Rate 15 17 Blood Pressure 151/66 H 151/74 H Pulse Oximetry 92 93 94 Oxygen Delivery Room Air Exam 2 Const: General: alert; No acute distress Orientation/consciousness: patient oriented x3 Limitations: no limitations HENMT: Head: normocephalic and atraumatic Ears: hearing grossly normal bilaterally Face/Nose/Sinus: Normal external nose present and Normal nares present Mouth: Yes Normal oral and palatal mucosa present and Yes moist mucous membranes Eyes: General: appearance normal, both eyes and all related structures C onjunctivae: conjunctivae normal Sclera: sclerae normal Pupils: Equal, round and reactive pupils present EOM: EOMs intact bilaterally Neck: Neck: normal visual inspection, full ROM, no lymphadenopathy, supple and no JVD Lymphatic: no lymphadenopathy noted Chest: Chest palpation & inspection: normal inspection of the chest Resp: Effort & Inspection: normal respiratory effort and able to speak in complete sentences Auscultation: clear to auscultation bilaterally P ercussion: percussion normal Cardio: Jugular venous distension: no JVD Rate: regular rate Rhythm: r egular rhythm Heart sounds: S1 normal heart sound present and S2 normal heart sound present Peripheral pulses: Peripheral pulses 2+ throughout GI: Inspection: distended GI Palp: Yes Tenderness to palpation present (GI) (lower abdomen), No Guarding due to palpation present (GI) and No Rebound tenderness present Auscultation: Hypoactive bowel sounds present : General: Yes no CVA tenderness Back/Spine/Pelvis: Back: no CVA tenderness Skin: General skin exam: normal color and dry skin Neuro: General: patient oriented x3, gait normal, moves all extremities, no focal motor deficits and CN's II-XI intact bilaterally Cranial nerves: Yes Equal, round and reactive pupils present Speech: normal speech Extrem: General: normal to inspection and capillary refill normal Results Labs 11/21/24 06:12 11/21/24 06:12 Labs: Abnormal lab results 11/20/24 11/20/24 11/20/24 Range/Units 13:28 14:10 15:50 WBC 23.0 H (4.5-10.0) K/mm3 Hgb (12.0-15.0) g/dL Hct (37.0-47.0) % RDW (11.5-14.5) % Immature Gran % (Auto) 0.7 H (0-0.5) % Neut % (Auto) 90.6 H (45.5-73.1) % Lymph % (Auto) 4.3 L (18.3-44.2) % Lymph # (Auto) (0.9-3.2) K/mm3 [place] # (Auto) 1.0 H (0.1-0.6) K/mm3 Abs Immat Gran (auto) 0.17 H (0.00-0.031) K/mm3 Absolute Neuts (auto) 20.9 H (1.3-6.7) K/mm3 Sodium 133 L (137-145) mmol/L Chloride 96 L (98-107) mmol/L BUN (7-17) mg/dL Glucose 152 H (65-110) mg/dL Lactic Acid 2.4 H (0.7-2.0) mmol/L AST 37 H (14-36) U/L Urine Ketones Trace H (Negative) mg/dL 11/21/24 Range/Units 06:12 WBC 21.5 H (4.5-10.0) K/mm3 Hgb 15.2 H (12.0-15.0) g/dL Hct 47.5 H (37.0-47.0) % RDW 14.7 H (11.5-14.5) % Immature Gran % (Auto) 0.6 H (0-0.5) % Neut % (Auto) 89.2 H (45.5-73.1) % Lymph % (Auto) 3.5 L (18.3-44.2) % Lymph # (Auto) 0.76 L (0.9-3.2) K/mm3 [place] # (Auto) 1.4 H (0.1-0.6) K/mm3 Abs Immat Gran (auto) 0.12 H (0.00-0.031) K/mm3 Absolute Neuts (auto) 19.2 H (1.3-6.7) K/mm3 Sodium 131 L (137-145) mmol/L Chloride (98-107) mmol/L BUN 18 H (7-17) mg/dL Glucose 145 H (65-110) mg/dL Lactic Acid (0.7-2.0) mmol/L AST (14-36) U/L Urine Ketones (Negative) mg/dL Diabetes panel 11/20/24 11/21/24 Range/Units 13:28 06:12 Sodium 133 L 131 L (137-145) mmol/L Potassium 3.9 4.2 (3.4-5.0) mmol/L Chloride 96 L 102 (98-107) mmol/L Carbon Dioxide 26 24 (22-30) mmol/L BUN 17 18 H (7-17) mg/dL Creatinine 0.89 0.82 (0.7-1.0) mg/dL Glucose 152 H 145 H (65-110) mg/dL Calcium 10.1 8.8 (8.4-10.2) mg/dL AST 37 H (14-36) U/L ALT 25 (6-35) U/L Alkaline Phosphatase 60 (38-126) U/L Total Protein 7.7 (6.3-8.2) g/dL Albumin 4.5 (3.5-5.1) g/dL Calcium panel 11/20/24 11/21/24 Range/Units 13:28 06:12 Calcium 10.1 8.8 (8.4-10.2) mg/dL Albumin 4.5 (3.5-5.1) g/dL Pituitary panel 11/20/24 11/21/24 Range/Units 13:28 06:12 Sodium 133 L 131 L (137-145) mmol/L Potassium 3.9 4.2 (3.4-5.0) mmol/L Chloride 96 L 102 (98-107) mmol/L Carbon Dioxide 26 24 (22-30) mmol/L BUN 17 18 H (7-17) mg/dL Creatinine 0.89 0.82 (0.7-1.0) mg/dL Glucose 152 H 145 H (65-110) mg/dL Calcium 10.1 8.8 (8.4-10.2) mg/dL Adrenal panel 11/20/24 11/21/24 Range/Units 13:28 06:12 Sodium 133 L 131 L (137-145) mmol/L Potassium 3.9 4.2 (3.4-5.0) mmol/L Chloride 96 L 102 (98-107) mmol/L Carbon Dioxide 26 24 (22-30) mmol/L BUN 17 18 H (7-17) mg/dL Creatinine 0.89 0.82 (0.7-1.0) mg/dL Glucose 152 H 145 H (65-110) mg/dL Calcium 10.1 8.8 (8.4-10.2) mg/dL Total Bilirubin 0.6 (0.2-1.3) mg/dL AST 37 H (14-36) U/L ALT 25 (6-35) U/L Alkaline Phosphatase 60 (38-126) U/L Total Protein 7.7 (6.3-8.2) g/dL Albumin 4.5 (3.5-5.1) g/dL All other labs normal. Imaging Additional studies: ITS Impressions Abdomen/Pelvis CT 11/20/24 14:45 IMPRESSION: Small bowel obstruction, with CT findings of C-loop configuration. Swirling mesenteric vessels may reflect a component of volvulus, possibly through a mesenteric defect. Early bowel wall ischemia/necrosis is suspected in a loop of small bowel in the deep pelvis. Small volume, nonsimple ascites. No pneumoperitoneum. Abdomen X-Ray 11/20/24 22:12 IMPRESSION: NG tube, in good position. Small bowel obstruction.
--- NOTE | 2024-11-21 09:07 | P.PNIM_ITS ---
Progress Note: A&P Assessment and Plan (1) SBO (small bowel obstruction): Code(s): K56.609 - Unspecified intestinal obstruction, unspecified as to partial versus complete obstruction Status: Acute Assessment and Plan: CT abdomen on presentation is concerning for complete small-bowel obstruction with possible ischemia initially with lactic acidosis and leukocytosis of 24. Surgery consulted and since patient has had minimal improvement with NG decompression and bowel rest plan to proceed with exploratory laparotomy and possible bowel resection. patient reported last bowel movement was 5 days prior * surgery consulted * exploratory laparotomy with bowel resection 11/21 * NG tube at low intermittent suction * Pain management * IV fluid * continue NPO advance once bowel function returns per surgery * IV Zosyn * Incentive spirometer * Need to encourage mobility (2) Leukocytosis: Code(s): D72.829 - Elevated white blood cell count, unspecified Status: Acute Assessment and Plan: WBC 24 POA * see above for likely cause * IV Zosyn * trend WBC/ trending down today 21 (3) Hyponatremia: Code(s): E87.1 - Hypo-osmolality and hyponatremia Status: Acute Assessment and Plan: likely secondary to fluid loss from bowel obstruction * continue IVF (4) Hyperglycemia: Code(s): R73.9 - Hyperglycemia, unspecified Status: Acute Assessment and Plan: Patient does not have history of diabetes could be secondary to acute infection, SBO * Hemoglobin A1c pending (5) Lactic acidosis: Code(s): E87.20 - Acidosis, unspecified Status: Resolved Assessment and Plan: Resolved with IV fluid (6) Nicotine dependence: Code(s): F17.200 - Nicotine dependence, unspecified, uncomplicated Status: Acute Assessment and Plan: Patient reports everyday smoker * Encouraged smoking cessation * Nicotine patch p.r.n. * Patient with some thick secretions will Mucinex * DuoNebs as needed Plan Code status: Full code per patient DVT prophylaxis: SCD Stress ulcer prophylaxis: NA PT/OT notes: Pending post surgery Disposition: Patient admitted to the medical unit for inpatient stay due to complete small-bowel obstruction with ischemia underwent exploratory laparotomy and bowel resection. PT and OT and discharge planning needs pending surgery. Time Spent With Patient Time with patient: 15 - 25 minutes Subjective Date/time seen: 11/21/24 09:07 Interval history: Patient is an 79-year-old female admitted to the medical unit for further evaluation treatment of small-bowel obstruction concerning for complete bowel obstruction and possible ischemia. 11/21/2024: Patient see post-op tolerated procedure well, denied CP, N/V. Patient with mild productive cough patietn reports everyday smoker. Patient with mild ABD tenderness. Review of Systems Review of Systems: 12 systems were reviewed and are negativ e except for as per HPI. All systems reviewed & are unremarkable except as noted in HPI and below Exam Narrative: General: well appearing, appears stated age. Respiratory: clear to auscultation bilaterally. Cardiovascular: SR tachycardia Abdomen: Soft, midline incision with dressing in place post-op NG tube Extremities:Active ROM to all four extremities. Neuro: No focal deficits Skin: Warm, dry, and intact, without rash, erythema, or lesion. Psych: pleasant, cooperative, Objective Data Vital Signs Vital Signs: Vital Signs - 24 hr 11/20/24 13:17 11/20/24 13:23 11/20/24 14:30 Temperature 98 F 97.9 F Pulse Rate 84 88 Respiratory Rate 22 H 18 Blood Pressure 136/79 138/78 Pulse Oximetry 98 98 Oxygen Delivery Room Air 11/20/24 14:59 11/20/24 16:01 11/20/24 17:01 Temperature 97.9 F 97.8 F 97.9 F Pulse Rate 85 89 84 Respiratory Rate 16 18 15 Blood Pressure 146/98 H 165/87 H 147/67 H Pulse Oximetry 96 93 90 Oxygen Delivery 11/20/24 18:30 11/20/24 20:00 11/20/24 20:00 Temperature 98 F Pulse Rate 88 88 Respiratory Rate 16 16 Blood Pressure 155/69 H Pulse Oximetry 92 92 Oxygen Delivery Room Air Room Air 11/20/24 22:39 11/21/24 00:00 11/21/24 04:00 Temperature 98.2 F 98.1 F Pulse Rate 81 91 Respiratory Rate 15 17 Blood Pressure 151/66 H 151/74 H Pulse Oximetry 92 93 94 Oxygen Delivery Room Air 11/21/24 08:00 Temperature 98.7 F Pulse Rate 108 H Respiratory Rate 16 Blood Pressure 138/71 Pulse Oximetry 93 Oxygen Delivery Intake/Output Intake/Output: Intake & Output 11/18/24 11/19/24 11/20/24 11/21/24 23:59 23:59 23:59 23:59 Intake Total 1050 1050 Output Total 50 100 Balance 1000 950 Meds/Results Medications: Active Medications Generic Name Dose Route Start Last Admin Trade Name Freq PRN Reason Stop Dose Admin Hydromorphone HCl 0.5 mg 11/21/24 03:21 11/21/24 06:18 Hydromorphone Hcl Inj (*Crx) 1 Mg/Ml Syr IV PUSH 0.5 mg Q3H PRN Administration Pain Rated 7-10 Sodium Chloride 1,000 mls @ 125 mls/hr 11/20/24 16:40 11/21/24 07:23 Normal Saline Iv IV CONT 125 mls/hr .Q8H SUE Administration Piperacillin Sod/Tazobactam 50 mls @ 100 mls/hr 11/21/24 00:00 11/21/24 05:44 Sod 2.25 gm/ Sodium Chloride IVPB 100 mls/hr Q6H SUE Administration Ondansetron HCl 4 mg 11/20/24 16:37 Ondansetron Inj 4 Mg/2 Ml Vial IV PUSH Q4H PRN Nausea Radiology Results: ITS Impressions Abdomen/Pelvis CT 11/20/24 14:45 IMPRESSION: Small bowel obstruction, with CT findings of C-loop configuration. Swirling mesenteric vessels may reflect a component of volvulus, possibly through a mesenteric defect. Early bowel wall ischemia/necrosis is suspected in a loop of small bowel in the deep pelvis. Small volume, nonsimple ascites. No pneumoperitoneum. Abdomen X-Ray 11/20/24 22:12 IMPRESSION: NG tube, in good position. Small bowel obstruction. Labs Labs: Laboratory Results - last 24 hr 11/20/24 11/20/24 11/20/24 13:28 14:10 15:50 WBC 23.0 H RBC 4.89 Hgb 14.5 Hct 43.5 MCV 89.0 MCH 29.7 MCHC 33.3 RDW 14.4 Plt Count 309 MPV 9.4 Immature Gran % (Auto) 0.7 H Neut % (Auto) 90.6 H Lymph % (Auto) 4.3 L [place] % (Auto) 4.2 Eos % (Auto) 0.0 Baso % (Auto) 0.2 Lymph # (Auto) 0.98 [place] # (Auto) 1.0 H Eos # (Auto) 0.0 Baso # (Auto) 0.1 Abs Immat Gran (auto) 0.17 H Absolute Neuts (auto) 20.9 H Absolute Nucleated RBC 0.000 Nucleated RBC % 0.0 Sodium 133 L Potassium 3.9 Chloride 96 L Carbon Dioxide 26 Anion Gap 11 BUN 17 Creatinine 0.89 Estim Creat Clear Calc 36 Estimated GFR > 60 Glucose 152 H Lactic Acid 2.4 H Calcium 10.1 Total Bilirubin 0.6 AST 37 H ALT 25 Alkaline Phosphatase 60 Total Protein 7.7 Albumin 4.5 Lipase 31 Urine Color Yellow Urine Appearance Clear Urine pH 5.5 Ur Specific [place] 1.015 Urine Protein Trace Urine Glucose (UA) Negative Urine Ketones Trace H Ur Blood (Man) Negative Urine Nitrate Negative Urine Bilirubin Negative Urine Urobilinogen 0.2 Add Ur Microanalysis Reviewed Leukocyte Esterase Rfl Negative Urine RBC 0-2 Urine WBC 0-5 Ur Squamous Epith Cells None seen Urine Bacteria None seen Urine Casts 11-20 11/20/24 11/21/24 19:14 06:12 WBC 21.5 H RBC 5.17 Hgb 15.2 H Hct 47.5 H MCV 91.9 MCH 29.4 MCHC 32.0 RDW 14.7 H Plt Count 304 MPV 9.6 Immature Gran % (Auto) 0.6 H Neut % (Auto) 89.2 H Lymph % (Auto) 3.5 L [place] % (Auto) 6.5 Eos % (Auto) 0.0 Baso % (Auto) 0.2 Lymph # (Auto) 0.76 L [place] # (Auto) 1.4 H Eos # (Auto) 0.0 Baso # (Auto) 0.0 Abs Immat Gran (auto) 0.12 H Absolute Neuts (auto) 19.2 H Absolute Nucleated RBC 0.000 Nucleated RBC % 0.0 Sodium 131 L Potassium 4.2 Chloride 102 Carbon Dioxide 24 Anion Gap 5 BUN 18 H Creatinine 0.82 Estim Creat Clear Calc 39 Estimated GFR > 60 Glucose 145 H Lactic Acid 1.9 1.4 Calcium 8.8 Total Bilirubin AST ALT Alkaline Phosphatase Total Protein Albumin Lipase Urine Color Urine Appearance Urine pH Ur Specific [place] Urine Protein Urine Glucose (UA) Urine Ketones Ur Blood (Man) Urine Nitrate Urine Bilirubin Urine Urobilinogen Add Ur Microanalysis Leukocyte Esterase Rfl Urine RBC Urine WBC Ur Squamous Epith Cells Urine Bacteria Urine Casts Quality VTE Prophylaxis VTE prophylaxis: mechanical ordered -Patient's previous records reviewed on admission -ER notes reviewed in detail on admission -discussed all findings and current treatment plan with patient/Family/POA -Consultations reviewed for recommendations -Patient's disposition for safe discharge discussed with case finishing machine adjuster Dictation performed by [employer] direct speech recognition software, therefore quality control tester variants and typographical errors may occur. Hospitalist MIPS Advance Care Plan I have confirmed that the patient's Advanced Care Plan is present, code status is documented, or surrogate decision maker is listed in patient medical record.: Yes Medication Reconciliation I have utilized all available resources to obtain, update and review the patients current medications (includes all prescriptions, OTC, herbals, cannabis, and nutritional supplements).: Yes The patient is not eligible for med reconciliation; the patient is in a emergent medical situation where delaying treatment would jeopardize the patients health.: No
--- NOTE | 2024-11-21 09:34 | WPDHPUPDATE1 ---
History and Physical Update Update Date/Time: 11/21/24 09:34 History and Physical has been reviewed, including an updated exam of the patient. There are NO changes in the patient's condition. Risks, benefits, and alternatives have been discussed and questions answered. Patient agrees to proceed with procedure.
--- NOTE | 2024-11-21 10:10 | PC.NURSE ---
Pt pulled out NG tube to 54cm, preop nurse notified.
[2024-11-21 10:14] LABS: Hemoglobin A1C 5.9 % (<5.7)
--- NOTE | 2024-11-21 10:19 | PC.NURSE ---
Patient down to pre-op via bed. GERALDO Aaron, received patient.
--- NOTE | 2024-11-21 10:26 | WPDANESEPPF ---
Anes - Initial Pre Proc Eval Procedure: Operation Date: 11/21/24 10:30 Proposed Procedures p Exploratory Laparotomy, Pos Bowel Resec - Kevin Huang DO Date/Time: 11/21/24 10:26 Surgeon: Sulaiman Corona MD Pre Op Diagnosis: SBO Patient Data Age: 79 Gender: F Height: 1.6 m Weight: 59 kg Last Vital Signs Temp 98.7 F 11/21/24 08:00 Pulse 108 H 11/21/24 08:00 Resp 16 11/21/24 08:00 BP 138/71 11/21/24 08:00 Pulse Ox 93 11/21/24 08:00 O2 Del Method Room Air 11/20/24 22:39 Allergies Allergy/AdvReac Type Severity Reaction Status Date / Time nitrofurantoin (From Allergy Intermediate Hives Verified 11/20/24 18:36 Macrobid) erythromycin base AdvReac Unknown Nausea and Verified 11/20/24 18:36 Vomiting Home Medications ?Medication ?Instructions ?Recorded ?Confirmed ?Type cholecalciferol (vitamin D3) 50 50 mcg PO DAILY #90 caps 06/08/24 11/20/24 Rx mcg (2,000 unit) capsule dicyclomine 20 mg tablet 20 mg PO QID #360 tabs 07/26/24 11/20/24 Rx Laboratory Tests 11/20/24 11/20/24 11/20/24 13:28 14:10 15:50 WBC 23.0 H K/mm3 (4.5-10.0) RBC 4.89 M/mm3 (4.2-5.4) Hgb 14.5 g/dL (12.0-15.0) Hct 43.5 % (37.0-47.0) MCV 89.0 fl (80-100) MCH 29.7 pg (26-34) MCHC 33.3 g/dl (32-36) RDW 14.4 % (11.5-14.5) Plt Count 309 k/mm3 (150-375) MPV 9.4 fl (7.4-10.4) Immature Gran % (Auto) 0.7 H % (0-0.5) Neut % (Auto) 90.6 H % (45.5-73.1) Lymph % (Auto) 4.3 L % (18.3-44.2) [place] % (Auto) 4.2 % (2.6-8.5) Eos % (Auto) 0.0 % (0-4.4) Baso % (Auto) 0.2 % (0.2-1.2) Lymph # (Auto) 0.98 K/mm3 (0.9-3.2) Routt # (Auto) 1.0 H K/mm3 (0.1-0.6) Eos # (Auto) 0.0 K/mm3 (0-0.3) Baso # (Auto) 0.1 K/mm3 (0.0-0.1) Abs Immat Gran (auto) 0.17 H K/mm3 (0.00-0.031) Absolute Neuts (auto) 20.9 H K/mm3 (1.3-6.7) Absolute Nucleated RBC 0.000 K/mm3 (0.0-0.012) Nucleated RBC % 0.0 % (0.0-0.2) Sodium 133 L mmol/L (137-145) Potassium 3.9 mmol/L (3.4-5.0) Chloride 96 L mmol/L (98-107) Carbon Dioxide 26 mmol/L (22-30) Anion Gap 11 mmol/L (4-12) BUN 17 mg/dL (7-17) Creatinine 0.89 mg/dL (0.7-1.0) Estim Creat Clear Calc 36 ml/min Estimated GFR > 60 (59 - ) Glucose 152 H mg/dL (65-110) Hemoglobin A1c Lactic Acid 2.4 H mmol/L (0.7-2.0) Calcium 10.1 mg/dL (8.4-10.2) Magnesium Total Bilirubin 0.6 mg/dL (0.2-1.3) AST 37 H U/L (14-36) ALT 25 U/L (6-35) Alkaline Phosphatase 60 U/L (38-126) Total Protein 7.7 g/dL (6.3-8.2) Albumin 4.5 g/dL (3.5-5.1) Lipase 31 U/L (23-300) Urine Color Yellow (Yellow) Urine Appearance Clear (Clear) Urine pH 5.5 (5.0-9.0) Ur Specific [place] 1.015 (1.001-1.035) Urine Protein Trace mg/dL (Negative) Urine Glucose (UA) Negative mg/dL (Negative) Urine Ketones Trace H mg/dL (Negative) Ur Blood (Man) Negative (Negative) Urine Nitrate Negative (Negative) Urine Bilirubin Negative (Negative) Urine Urobilinogen 0.2 mg/dL (<2.0) Add Ur Microanalysis Reviewed Leukocyte Esterase Rfl Negative ALVARO/UL (Negative) Urine RBC 0-2 /hpf (0-2) Urine WBC 0-5 /hpf (0-3) Ur Squamous Epith Cells None seen /hpf (Few) Urine Bacteria None seen /hpf Urine Casts -11/20/24 11/21/24 19:14 06:12 WBC 21.5 H K/mm3 (4.5-10.0) RBC 5.17 M/mm3 (4.2-5.4) Hgb 15.2 H g/dL (12.0-15.0) Hct 47.5 H % (37.0-47.0) MCV 91.9 fl (80-100) MCH 29.4 pg (26-34) MCHC 32.0 g/dl (32-36) RDW 14.7 H % (11.5-14.5) Plt Count 304 k/mm3 (150-375) MPV 9.6 fl (7.4-10.4) Immature Gran % (Auto) 0.6 H % (0-0.5) Neut % (Auto) 89.2 H % (45.5-73.1) Lymph % (Auto) 3.5 L % (18.3-44.2) Routt % (Auto) 6.5 % (2.6-8.5) Eos % (Auto) 0.0 % (0-4.4) Baso % (Auto) 0.2 % (0.2-1.2) Lymph # (Auto) 0.76 L K/mm3 (0.9-3.2) Routt # (Auto) 1.4 H K/mm3 (0.1-0.6) Eos # (Auto) 0.0 K/mm3 (0-0.3) Baso # (Auto) 0.0 K/mm3 (0.0-0.1) Abs Immat Gran (auto) 0.12 H K/mm3 (0.00-0.031) Absolute Neuts (auto) 19.2 H K/mm3 (1.3-6.7) Absolute Nucleated RBC 0.000 K/mm3 (0.0-0.012) Nucleated RBC % 0.0 % (0.0-0.2) Sodium 131 L mmol/L (137-145) Potassium 4.2 mmol/L (3.4-5.0) Chloride 102 mmol/L (98-107) Carbon Dioxide 24 mmol/L (22-30) Anion Gap 5 mmol/L (4-12) BUN 18 H mg/dL (7-17) Creatinine 0.82 mg/dL (0.7-1.0) Estim Creat Clear Calc 39 ml/min Estimated GFR > 60 (59 - ) Glucose 145 H mg/dL (65-110) Hemoglobin A1c 5.9 H % (<5.7) Lactic Acid 1.9 mmol/L 1.4 mmol/L (0.7-2.0) (0.7-2.0) Calcium 8.8 mg/dL (8.4-10.2) Magnesium Pending Total Bilirubin AST ALT Alkaline Phosphatase Total Protein Albumin Lipase Urine Color Urine Appearance Urine pH Ur Specific [place] Urine Protein Urine Glucose (UA) Urine Ketones Ur Blood (Man) Urine Nitrate Urine Bilirubin Urine Urobilinogen Add Ur Microanalysis Leukocyte Esterase Rfl Urine RBC Urine WBC Ur Squamous Epith Cells Urine Bacteria Urine Casts Patient hx anesthesia problems: none Family hx anesthesia problems: none Results Review: All pre-operative results and documents have been reviewed as part of the pre-operative evaluation. [facility] Past Medical History Medical History AVM (arteriovenous malformation) of colon Urinary frequency Sinus congestion Dysuria Excessive ear wax UTI (urinary tract infection) Acute non-recurrent maxillary sinusitis Anxiety Chronic right-sided low back pain without sciatica Current moderate episode of major depressive disorder without prior episode Expiratory wheezing Fatigue Recurrent sinusitis Right ear pain Vitamin D deficiency Hemorrhoids Spinal stenosis Depression Back pain Arthritis Uterine cancer GERD (gastroesophageal reflux disease) Optic nerve tumor Colon polyps Cataracts, bilateral Bronchitis Hyperlipidemia Migraine Surgical History Surgical History Hx of colonoscopy with removal of colonic polyps Hx of cataract surgery Previous back surgery Hx of abdominal hysterectomy Family History Family History Father Acute myocardial infarction, Onset Age: 73 Patient's father is Mother Carcinoma of colon, Onset Age: 54 Patient's mother is Sibling Patient's brother is Social History Social History Smoking packs per day: 2 Smoking cigarettes per day: 40.0 Years smoked: 75 Smoking pack-years: 150.00 Smoking status: Current every day smoker Tobacco type: cigarettes Alcohol intake: never Substance use: never Do You Feel Safe in your Home?: Yes Lack of Transportation: No Lack of Food: Never True Current Housing: I Have Housing Concerned About Future Housing: No Difficulty Paying Gas/Electric Bills: No Difficulty Paying for Meds: No Currently Unemployed: No Education: High School Diploma/GED Difficulty w/ Childcare or Family Care: No Gender identity (if verbalized by the patient): Female Spiritual care concerns: No Anes - Eval Final PreProcedure Day of Procedure 11/21/24 10:26 Patient weight: normal and thin Lungs: normal air movement Airway: Mallampati scale class III Neurological: alert and oriented Last oral intake: >/= 8 hours ASA classification: III Emergent: yes Anesthetic plan: proceed Anesthesia type and monitoring: general ETT and standard monitoring Results Review: All pre-operative results and documents have been reviewed as part of the pre-operative evaluation. Pt without known CAD, only hx of smoking 1-2 ppd for 65 years, pt started at 14 yo. Overall active w walking w her groceries, no cp but sob w moving more quickly. Pt now w acute SBO and in need of emergent ex lap, sig amount of pain in preop area. Discussed all poss w pt including additional IV lines, poss post op mech vent and ICU admission. She understands and wishes to proceed. Informed Consent: The patient's anesthetic plan and its attendant risks and benefits were discussed with the patient/family/POA. Questions were solicited and answers provided to the satisfaction of the patient/family/POA.
[2024-11-21 10:27] LABS: Magnesium 2.1 mg/dL (1.6-2.3)
--- NOTE | 2024-11-21 11:27 | S_PTH ---
PATIENT: Rody Wynn LOC: [id number] U#:[id number] AGE/SX: 79/F ROOM: 331 RE11/20/[address]: NICANOR Knott : 1945 BED: 01 DIS: 11/28/2024 SPEC #: [id number] RECD: 11/22/24 08:30 STATUS: MAXWELL REMario #: [id number] PETERSON: 11/21/24 11:[address]: Kevin Huang DEPT: [facility] Surgical RECD BY: Kathryn Trevizo ENTERED: 11/22/24 08:30 SP TYPE: Surgical OTHR DR: LADY Chow MD Michael E. Mandis, MD Tissues: A - Small Bowel Procedures: Hematoxylin and Eosin Stain Gross and Microscopic Level 5
[2024-11-21] MEDS: LACTATED RINGERS 1,000 ML 30 ML IV CONT ×2 (12:07→12:39)
--- NOTE | 2024-11-21 12:07 | P.OP_ITS ---
Procedure Note - Detailed Date of Procedure 11/21/24 Pre-op Diagnosis Small bowel obstruction Post-op Diagnosis Same Procedure Performed 1. Exploratory laparotomy 2. Ileal resection with [id number] anastomosis Surgeon Kevin Huang, DO Anesthesia General Indications This is an 79-year-old woman who presented to the emergency department on 11/20/2024 with abdominal pain with nausea and vomiting. She had not had a bowel movement in about 5 days and pain had been persisting over the past [address] showed evidence of a small-bowel obstruction and possible signs of early ischemia. Her lactic acid level was only slightly elevated and returned to normal after IV fluid resuscitation. An NG tube was placed and she was admitted for further treatment. She still continued to have frequent pain even after NG tube was placed. Discussions were made with the patient about treatment options and decision was made to proceed with exploratory laparotomy with possible small bowel resection. Findings Exploratory laparotomy was performed. The patient was found to have an adhesive band in the lower abdomen which was leading to a closed-loop small-bowel obstruction. There appeared to be signs of ischemia and some signs of necrosis but there was no evidence of perforation. The patient was also found to have a Meckel's diverticulum just distal to where the obstruction was located. The adhesive band was taken down but because the bowel looked ischemic and necrotic, decision was made to proceed with small bowel resection. This involved approximately 2 ft of her ileum. The remainder of the bowel appeared healthy and viable. No other significant adhesions were identified. The small bowel resection was sent to the lab for pathology. Description of Procedure Procedure as well as risks, benefits, and alternatives were discussed with the patient. Written consent was obtained and placed in chart prior to procedure. Patient was brought back to surgical suite. She was placed supine on operating table. Time-out was done to confirm patient and procedure. She was then intubated by the anesthesia department. Her abdomen was prepped and draped in sterile fashion using chlorhexidine prep. A 15 cm lower midline vertical incision was made using a 10 blade scalpel. Electrocautery was used for hemostasis and for dissection through the subcutaneous tissue. The linea alba was then incised using electrocautery. The peritoneum was then entered with electrocautery and the fascial incision was then extended throughout the length of the skin incision. A carefully inspected the fascia and abdominal wall and there were no other significant adhesions up to the abdomen. A large Pool wound protector was then placed. The abdominal cavity was then carefully inspected. There appeared to be about 700 mL of clear ascites within the abdomen. This was suctioned out and then the bowel was carefully inspected. A loop of ileum appeared ischemic but then I was able to identify an area of the d istal ileum that appeared decompressed and normal. I traced this proximally to the point of obstruction and found an adhesive band causing the obstruction. The adhesion was taken down using electrocautery. This freed up the area of obstruction and I was then able to run the bowel proximally all the way to the ligament of Treitz. There was about a 2 ft segment of ileum that appeared ischemic and 1 area in particular was showing signs of necrosis. There was also a Meckel's diverticulum noted just distal to the area of ischemia. Decision was made to proceed with small bowel resection of this segment. A window was created in the mesentery proximally and distally using a curved hemostat and a LUZMARIA 75 mm blue load stapler was advanced across each location and clamped and fired. The mesentery of the involved segment was then taken down using LigaSure bipolar cautery. The specimen was freed up completely and was removed and sent to the lab for pathology. Two ends of the ileum came together in a [id number] fashion without any tension. Enterotomies were made on the anti mesenteric corner of the staple line and the LUZMARIA 75 mm blue load stapler was advanced through each enterotomy and the bowel was clamped together in a [id number] fashion and the stapler was fired. The anastomosis was inspected and appeared healthy and viable. The enterotomy was then closed using a Tx 60 mm stapler. The mesenteric rent was then closed using a 3-0 chromic running absorbable suture. The apex of the anastomosis staple line was reinforced using a 3-0 silk seromuscular imbricating suture. Several more imbricating sutures were then placed along the anterior surface of the staple line. The anastomosis was then palpated and inspected 1 final time in appeared healthy and viable and widely patent. The bowel was then released back down into the abdominal cavity. I then ran the entire small bowel 1 more time from ligament of Treitz all the way to the ileocecal valve. The remainder of the small bowel appeared healthy and viable and no other significant adhesions were identified. The cecum transverse colon and sigmoid colon all appeared healthy and viable as well. The abdomen was then irrigated with 1 L of sterile saline. The NG tube was confirmed in proper position within the body of the stomach. No other abnormalities were noted. The Pool wound protector was then removed. The fascia of the midline incision was then reapproximated using 0 PDS running suture starting from each end and meeting in the middle. The skin was then reapproximated using a skin stapler. Telfa, 4 x 4 gauze, and Medipore tape were then applied. The patient was then awakened from anesthesia, extubated, and transferred to recovery. Estimated Blood Loss 50 Urine Output 50 Pathology Yes (Small-bowel) Complications No immediate complications Condition Stable Disposition Floor [facility] Billing Surgery - Charge Forward: Surgery Billing
[2024-11-21] MEDS: fentaNYL CITRATE INJ (*CRX) 100 MCG/2 ML VIAL 25 MCG IV PUSH ×2 (12:40→13:00)
--- NOTE | 2024-11-21 13:42 | PC.NURSE ---
Returned from OR per bed. Report received from
[2024-11-21] MEDS: LACTATED RINGERS 1,000 ML 100 ML IV CONT (14:36)
[2024-11-21] MEDS: MORPHINE SULFATE (*CRX) 2 MG/ML INJ IV PUSH ×2 (14:40→23:25)
[2024-11-21] MEDS: IBUPROFEN IV 800 MG/200 ML 800 MG/200 ML BAG 400 MG IVPB (15:43)
[2024-11-21] MEDS: NICOTINE (*PBKC) 21 MG PATCH 1 PATCH TRANSDERM (17:54)
[2024-11-22] VITALS (9 sets, daily range): BP systolic 140–147; BP diastolic 60–77; PULSE 89–101; RESP 16–18; TEMP 36.4–37.3; O2SAT 88–98
[2024-11-22] MEDS: IBUPROFEN IV 800 MG/200 ML 800 MG/200 ML BAG 400 MG IVPB ×3 (01:10→20:22)
[2024-11-22] MEDS: LACTATED RINGERS 1,000 ML 100 ML IV CONT ×2 (01:16→12:31)
[2024-11-22 05:41] LABS: Hematocrit 37.4 % (37.0-47.0); Hemoglobin 11.7 g/dL (12.0-15.0); Mean Corpuscular HGB Conc 31.3 g/dl (32-36); Mean Corpuscular Hemoglobin 29.4 pg (26-34); Mean Corpuscular Volume 94.0 fl (80-100); Platelet Count Result 185 k/mm3 (150-375); Red Blood Count 3.98 M/mm3 (4.2-5.4); White Blood Count 12.2 K/mm3 (4.5-10.0)
[2024-11-22 06:05] LABS: Alanine Aminotransferase 16 U/L (6-35); Albumin Level 2.9 g/dL (3.5-5.1); Alkaline Phosphatase 44 U/L (38-126); Anion Gap 1 mmol/L (4-12); Aspartate Amino Transferase 39 U/L (14-36); Bilirubin,Total 0.4 mg/dL (0.2-1.3); Blood Urea Nitrogen 14 mg/dL (7-17); Calcium 8.5 mg/dL (8.4-10.2); Carbon Dioxide 31 mmol/L (22-30); Chloride 105 mmol/L (98-107); Estimated CRCL calculation 41 ml/min; Estimated Glomerular Filt Rate > 60; Glucose 106 mg/dL (65-110); Magnesium 2.2 mg/dL (1.6-2.3); Potassium 4.3 mmol/L (3.4-5.0); Sodium 137 mmol/L (137-145); Total Protein 5.4 g/dL (6.3-8.2)
[2024-11-22] MEDS: ENOXAPARIN 40 MG/0.4 ML SYRINGE SUB-Q (07:46)
[2024-11-22] MEDS: MORPHINE SULFATE (*CRX) 2 MG/ML INJ IV PUSH ×2 (07:46→15:10)
[2024-11-22] MEDS: NICOTINE (*PBKC) 21 MG PATCH 1 PATCH TRANSDERM (08:00)
--- NOTE | 2024-11-22 08:23 | WPDANESPN ---
Anes - Prog Note Post-Op Date/Time: 11/22/24 08:23 Cardiovascular status: normal Respiratory status: normal Airway patency: baseline Mental status: baseline Post-Op hydration status: normal Vital Signs: Last Vital Signs Temp 37.3 C 11/22/24 07:47 Pulse 97 11/22/24 07:47 Resp 16 11/22/24 07:47 BP 142/63 H 11/22/24 07:47 Pulse Ox 96 11/22/24 07:47 O2 Del Method Nasal Cannula 11/21/24 20:00 O2 Flow Rate 2 11/21/24 20:00 Pain Score (VAS): 3 I/O: Intake & Output 11/21/24 11/22/24 11/22/24 23:59 07:59 15:59 Intake Total 200 1000 Output Total 100 1200 Balance 100 -200 Laboratory Tests 11/22/24 05:23 11/22/24 05:23 11/21/24 11/22/24 06:12 05:23 WBC 12.2 H RBC 3.98 L Hgb 11.7 L D Hct 37.4 MCV 94.0 MCH 29.4 MCHC 31.3 L RDW 14.6 H Plt Count 185 MPV 9.8 Sodium 137 Potassium 4.3 Chloride 105 Carbon Dioxide 31 H Anion Gap 1 L BUN 14 Creatinine 0.77 Estim Creat Clear Calc 41 Estimated GFR > 60 Glucose 106 Hemoglobin A1c 5.9 H Calcium 8.5 Magnesium 2.1 2.2 Total Bilirubin 0.4 AST 39 H ALT 16 Alkaline Phosphatase 44 Total Protein 5.4 L Albumin 2.9 L Post-procedural complaints: none Patient Feedback: Patient satisfied with anesthetic care.
--- NOTE | 2024-11-22 09:36 | P.PNGS_ITS ---
Progress Note: A&P Assessment and Plan (1) SBO (small bowel obstruction): Code(s): K56.609 - Unspecified intestinal obstruction, unspecified as to partial versus complete obstruction Status: Acute Assessment and Plan: * Pod 1 status post exploratory laparotomy with ileal resection. Patient is doing well. Notes abdominal soreness. Getting up to chair with nursing assistance. WBC downtrending. Afebrile. NG tube with roughly 700 mL of brownish fluid. * Continue NG tube decompression. * Pathology pending. * Encourage ambulation. We will continue to monitor with serial abdominal exams and labs. (2) Tobacco use: Code(s): Z72.0 - Tobacco use Status: Acute Plan Discussed patient's case and plan of care with Dr. Huang. Subjective Subjective Date/Time Seen: 11/22/24 09:36 Post Op day: 1 Patient reports: no new complaints and no bowel movement Interval history: Patient doing well today. She does complain of some abdominal soreness. Got up to chair with nursing staff upon visit. WBC 12.2, down from 21.5. NG tube with roughly 700 mL of dark brownish fluid. Exam Const: General: comfortable and no acute distress GI: Inspection: non-distended GI Palp: Yes Soft to palpation and Yes Tenderness to palpation present (GI) (Tender to palpation throughout abdomen) Other: Incision clean and dry with amilcar intact. No surrounding redness or erythema. Minimal drainage on bandage. Objective Data Vital Signs Vital Signs: Vital Signs - 24 hr 11/21/24 12:07 11/21/24 12:20 11/21/24 12:35 Temperature 97.5 F L Pulse Rate 111 H 99 103 H Respiratory Rate 22 H 16 18 Blood Pressure 175/82 H 149/66 H 161/65 H Pulse Oximetry 98 100 100 Oxygen Delivery Simple Face Mask Simple Face Mask Simple Face Mask Oxygen Flow Rate 10 10 10 11/21/24 12:50 11/21/24 13:05 11/21/24 13:20 Temperature 99.8 F H Pulse Rate 106 H 107 H 104 H Respiratory Rate 18 16 16 Blood Pressure 154/73 H 146/62 H 159/65 H Pulse Oximetry 94 93 94 Oxygen Delivery Nasal Cannula Nasal Cannula Nasal Cannula Oxygen Flow Rate 4 2 2 11/21/24 13:45 11/21/24 14:00 11/21/24 14:30 Temperature 99.6 F 99.2 F 99.5 F Pulse Rate 107 H 115 H 109 H Respiratory Rate 18 18 18 Blood Pressure 151/69 H 162/72 H 162/73 H Pulse Oximetry 94 94 94 Oxygen Delivery Oxygen Flow Rate 11/21/24 15:52 11/21/24 19:22 11/21/24 20:00 Temperature 98.5 F 97.8 F Pulse Rate 104 H 105 H Respiratory Rate 20 16 Blood Pressure 137/82 150/71 H Pulse Oximetry 96 92 97 Oxygen Delivery Nasal Cannula Oxygen Flow Rate 2 11/21/24 22:00 11/22/24 03:22 11/22/24 07:47 Temperature 97.8 F 97.6 F 99.2 F Pulse Rate 105 H 101 H 97 Respiratory Rate 16 18 16 Blood Pressure 150/71 H 147/74 H 142/63 H Pulse Oximetry 92 93 96 Oxygen Delivery Oxygen Flow Rate 11/22/24 08:00 11/22/24 08:05 11/22/24 08:10 Temperature Pulse Rate Respiratory Rate Blood Pressure Pulse Oximetry 96 88 L 93 Oxygen Delivery Nasal Cannula Room Air Nasal Cannula Oxygen Flow Rate 2 2 Intake/Output Intake/Output: Intake & Output 11/19/24 11/20/24 11/21/24 11/22/24 23:59 23:59 23:59 23:59 Intake Total 1050 2100 1000 Output Total 50 331 1200 Balance 1000 1769 -200 Meds/Results Medications: Active Medications Generic Name Dose Route Start Last Admin Trade Name Freq PRN Reason Stop Dose Admin Albuterol/Ipratropium 3 ml 11/21/24 13:59 Ipratropium 0.5 Mg/Albuterol Sulfate 2.5 Mg Ampul.Neb 3 Ml INHALATION Q6HRT PRN wheezing Enoxaparin Sodium 40 mg 11/22/24 09:00 11/22/24 07:46 Enoxaparin 40 Mg/0.4 Ml Syringe SUB-Q 40 mg DAILY SUE Administration Guaifenesin 200 mg 11/21/24 13:59 Guaifenesin 200 Mg/10 Ml Udc PO Q4H PRN Cough Lactated Ringer's 1,000 mls @ 100 mls/hr 11/21/24 13:37 11/22/24 01:16 Lr - Lactated Ringers Iv IV CONT 100 mls/hr .Q10H SUE Administration Ibuprofen 800 mg in 200 mls @ 400 mls/hr 11/21/24 13:37 11/22/24 01:10 Caldolor 800 Mg/200 Ml IVPB 400 mls/hr Q6H PRN Administration Breakthrough Pain Rated 1-3 or NPO Morphine Sulfate 2 mg 11/21/24 13:37 11/22/24 07:46 Morphine Sulfate (*Crx) 2 Mg/Ml Inj IV PUSH 2 mg Q2H PRN Administration Breakthrough Pain Rated 4-6 or NPO Morphine Sulfate 4 mg 11/21/24 13:37 Morphine Sulfate (*Crx) 4 Mg/Ml Inj IV PUSH Q2H PRN Breakthrough Pain Rated 7-10 or NPO Naloxone HCl 0.1 mg 11/21/24 13:37 Naloxone Hcl 0.4 Mg/Ml Vial IV PUSH Q2M PRN Opiate Reversal Nicotine 1 patch 11/21/24 13:59 11/22/24 08:00 Nicotine (*Pbkc) 21 Mg Patch TRANSDERM 1 patch DAILY PRN Administration Nicotine Cravings Ondansetron HCl 4 mg 11/20/24 16:37 Ondansetron Inj 4 Mg/2 Ml Vial IV PUSH Q4H PRN Nausea Radiology Results: ITS Impressions Abdomen/Pelvis CT 11/20/24 14:45 IMPRESSION: Small bowel obstruction, with CT findings of C-loop configuration. Swirling mesenteric vessels may reflect a component of volvulus, possibly through a mesenteric defect. Early bowel wall ischemia/necrosis is suspected in a loop of small bowel in the deep pelvis. Small volume, nonsimple ascites. No pneumoperitoneum. Abdomen X-Ray 11/20/24 22:12 IMPRESSION: NG tube, in good position. Small bowel obstruction. Labs Labs: Laboratory Results - last 24 hr 11/21/24 11/22/24 06:12 05:23 WBC 12.2 H RBC 3.98 L Hgb 11.7 L D Hct 37.4 MCV 94.0 MCH 29.4 MCHC 31.3 L RDW 14.6 H Plt Count 185 MPV 9.8 Sodium 137 Potassium 4.3 Chloride 105 Carbon Dioxide 31 H Anion Gap 1 L BUN 14 Creatinine 0.77 Estim Creat Clear Calc 41 Estimated GFR > 60 Glucose 106 Hemoglobin A1c 5.9 H Calcium 8.5 Magnesium 2.1 2.2 Total Bilirubin 0.4 AST 39 H ALT 16 Alkaline Phosphatase 44 Total Protein 5.4 L Albumin 2.9 L
--- NOTE | 2024-11-22 15:29 | P.PNIM_ITS ---
Progress Note: A&P Assessment and Plan (1) SBO (small bowel obstruction): Code(s): K56.609 - Unspecified intestinal obstruction, unspecified as to partial versus complete obstruction Status: Acute Assessment and Plan: CT abdomen on presentation is concerning for complete small-bowel obstruction with possible ischemia initially with lactic acidosis and leukocytosis of 24. Surgery consulted and since patient has had minimal improvement with NG decompression and bowel rest plan to proceed with exploratory laparotomy and possible bowel resection. patient reported last bowel movement was 5 days prior * Post-op day 1 * surgery consulted * exploratory laparotomy with bowel resection 11/21 * Continue NG tube at low intermittent suction for bowel decompression * Pain management * IV fluid * continue NPO advance once bowel function returns per surgery * IV Zosyn D/C * Incentive spirometer * Need to encourage mobility (2) Leukocytosis: Code(s): D72.829 - Elevated white blood cell count, unspecified Status: Acute Assessment and Plan: WBC 24 POA * see above for likely cause * IV Zosyn * trend WBC/ trending down today 12 (3) Hyperglycemia: Code(s): R73.9 - Hyperglycemia, unspecified Status: Acute Assessment and Plan: Patient does not have history of diabetes could be secondary to acute infection, SBO * Hemoglobin A1c 5.9 (4) Lactic acidosis: Code(s): E87.20 - Acidosis, unspecified Status: Resolved Assessment and Plan: Resolved with IV fluid (5) Nicotine dependence: Code(s): F17.200 - Nicotine dependence, unspecified, uncomplicated Status: Acute Assessment and Plan: Patient reports everyday smoker * Encouraged smoking cessation * Nicotine patch p.r.n. * Patient with some thick secretions will Mucinex * DuoNebs as needed (6) Hyponatremia: Code(s): E87.1 - Hypo-osmolality and hyponatremia Status: Resolved Assessment and Plan: likely secondary to fluid loss from bowel obstruction * continue IVF Plan Code status: Full code per patient DVT prophylaxis: SCD Stress ulcer prophylaxis: NA PT/OT notes: Pending post surgery Disposition: Patient admitted to the medical unit for inpatient stay due to complete small-bowel obstruction with ischemia underwent exploratory laparotomy and bowel resection. PT and OT and discharge planning needs pending surgery. Time Spent With Patient Time with patient: 15 - 25 minutes Subjective Date/time seen: 11/22/24 15:29 Interval history: Patient is an 79-year-old female admitted to the medical unit for further evaluation treatment of small-bowel obstruction concerning for complete bowel obstruction and possible ischemia. 11/22/2024: Patient with mild ABD pain, no gas or BM NG tube with moderate amount of blackish brownish drainage. Patient with no CP, SOB and wheezing improved. Review of Systems Review of Systems: 12 systems were reviewed and are negativ e except for as per HPI. All systems reviewed & are unremarkable except as noted in HPI and below Exam Narrative: General: well appearing, appears stated age. Respiratory: clear to auscultation bilaterally. Cardiovascular: SR tachycardia Abdomen: Soft, midline incision with dressing in place post-op NG tube Extremities:Active ROM to all four extremities. Neuro: No focal deficits Skin: Warm, dry, and intact, without rash, erythema, or lesion. Psych: pleasant, cooperative, Objective Data Vital Signs Vital Signs: Vital Signs - 24 hr 11/21/24 15:52 11/21/24 19:22 11/21/24 20:00 Temperature 98.5 F 97.8 F Pulse Rate 104 H 105 H Respiratory Rate 20 16 Blood Pressure 137/82 150/71 H Pulse Oximetry 96 92 97 Oxygen Delivery Nasal Cannula Oxygen Flow Rate 2 11/21/24 22:00 11/22/24 03:22 11/22/24 07:47 Temperature 97.8 F 97.6 F 99.2 F Pulse Rate 105 H 101 H 97 Respiratory Rate 16 18 16 Blood Pressure 150/71 H 147/74 H 142/63 H Pulse Oximetry 92 93 96 Oxygen Delivery Oxygen Flow Rate 11/22/24 08:00 11/22/24 08:05 11/22/24 08:10 Temperature Pulse Rate Respiratory Rate Blood Pressure Pulse Oximetry 96 88 L 93 Oxygen Delivery Nasal Cannula Room Air Nasal Cannula Oxygen Flow Rate 2 2 11/22/24 11:22 Temperature 98.4 F Pulse Rate 99 Respiratory Rate 18 Blood Pressure 143/60 H Pulse Oximetry 94 Oxygen Delivery Oxygen Flow Rate Intake/Output Intake/Output: Intake & Output 11/19/24 11/20/24 11/21/24 11/22/24 23:59 23:59 23:59 23:59 Intake Total 1050 2100 2573.3 Output Total 50 331 1500 Balance 1000 1769 1073.3 Meds/Results Medications: Active Medications Generic Name Dose Route Start Last Admin Trade Name Freq PRN Reason Stop Dose Admin Albuterol/Ipratropium 3 ml 11/21/24 13:59 Ipratropium 0.5 Mg/Albuterol Sulfate 2.5 Mg Ampul.Neb 3 Ml INHALATION Q6HRT PRN wheezing Enoxaparin Sodium 40 mg 11/22/24 09:00 11/22/24 07:46 Enoxaparin 40 Mg/0.4 Ml Syringe SUB-Q 40 mg DAILY SUE Administration Guaifenesin 200 mg 11/21/24 13:59 Guaifenesin 200 Mg/10 Ml Udc PO Q4H PRN Cough Lactated Ringer's 1,000 mls @ 100 mls/hr 11/21/24 13:37 11/22/24 12:31 Lr - Lactated Ringers Iv IV CONT 100 mls/hr .Q10H SUE Administration Ibuprofen 800 mg in 200 mls @ 400 mls/hr 11/21/24 13:37 11/22/24 11:04 Caldolor 800 Mg/200 Ml IVPB Infused Q6H PRN Infusion Breakthrough Pain Rated 1-3 or NPO Morphine Sulfate 2 mg 11/21/24 13:37 11/22/24 15:10 Morphine Sulfate (*Crx) 2 Mg/Ml Inj IV PUSH 2 mg Q2H PRN Administration Breakthrough Pain Rated 4-6 or NPO Morphine Sulfate 4 mg 11/21/24 13:37 Morphine Sulfate (*Crx) 4 Mg/Ml Inj IV PUSH Q2H PRN Breakthrough Pain Rated 7-10 or NPO Naloxone HCl 0.1 mg 11/21/24 13:37 Naloxone Hcl 0.4 Mg/Ml Vial IV PUSH Q2M PRN Opiate Reversal Nicotine 1 patch 11/21/24 13:59 11/22/24 08:00 Nicotine (*Pbkc) 21 Mg Patch TRANSDERM 1 patch DAILY PRN Administration Nicotine Cravings Ondansetron HCl 4 mg 11/20/24 16:37 Ondansetron Inj 4 Mg/2 Ml Vial IV PUSH Q4H PRN Nausea Radiology Results: ITS Impressions Abdomen/Pelvis CT 11/20/24 14:45 IMPRESSION: Small bowel obstruction, with CT findings of C-loop configuration. Swirling mesenteric vessels may reflect a component of volvulus, possibly through a mesenteric defect. Early bowel wall ischemia/necrosis is suspected in a loop of small bowel in the deep pelvis. Small volume, nonsimple ascites. No pneumoperitoneum. Abdomen X-Ray 11/20/24 22:12 IMPRESSION: NG tube, in good position. Small bowel obstruction. Labs Labs: Laboratory Results - last 24 hr 11/22/24 05:23 WBC 12.2 H RBC 3.98 L Hgb 11.7 L D Hct 37.4 MCV 94.0 MCH 29.4 MCHC 31.3 L RDW 14.6 H Plt Count 185 MPV 9.8 Sodium 137 Potassium 4.3 Chloride 105 Carbon Dioxide 31 H Anion Gap 1 L BUN 14 Creatinine 0.77 Estim Creat Clear Calc 41 Estimated GFR > 60 Glucose 106 Calcium 8.5 Magnesium 2.2 Total Bilirubin 0.4 AST 39 H ALT 16 Alkaline Phosphatase 44 Total Protein 5.4 L Albumin 2.9 L Quality VTE Prophylaxis VTE prophylaxis: mechanical ordered -Patient's previous records reviewed on admission -ER notes reviewed in detail on admission -discussed all findings and current treatment plan with patient/Family/POA -Consultations reviewed for recommendations -Patient's disposition for safe discharge discussed with geriatric case manager Dictation performed by [employer] direct speech recognition software, therefore director of catering variants and typographical errors may occur. Hospitalist MIPS Advance Care Plan I have confirmed that the patient's Advanced Care Plan is present, code status is documented, or surrogate decision maker is listed in patient medical record.: Yes Medication Reconciliation I have utilized all available resources to obtain, update and review the patients current medications (includes all prescriptions, OTC, herbals, ca nnabis, and nutritional supplements).: Yes The patient is not eligible for med reconciliation; the patient is in a emergent medical situation where delaying treatment would jeopardize the patients health.: No
[2024-11-23] MEDS: LACTATED RINGERS 1,000 ML 100 ML IV CONT ×2 (00:29→09:22)
[2024-11-23 06:14] LABS: Hematocrit 36.9 % (37.0-47.0); Hemoglobin 11.5 g/dL (12.0-15.0); Mean Corpuscular HGB Conc 31.2 g/dl (32-36); Mean Corpuscular Hemoglobin 29.7 pg (26-34); Mean Corpuscular Volume 95.3 fl (80-100); Platelet Count Result 207 k/mm3 (150-375); Red Blood Count 3.87 M/mm3 (4.2-5.4); White Blood Count 10.0 K/mm3 (4.5-10.0)
[2024-11-23 06:44] LABS: Alanine Aminotransferase 18 U/L (6-35); Albumin Level 3.1 g/dL (3.5-5.1); Alkaline Phosphatase 47 U/L (38-126); Anion Gap 6 mmol/L (4-12); Aspartate Amino Transferase 43 U/L (14-36); Bilirubin,Total 0.6 mg/dL (0.2-1.3); Blood Urea Nitrogen 14 mg/dL (7-17); Calcium 8.6 mg/dL (8.4-10.2); Carbon Dioxide 31 mmol/L (22-30); Chloride 103 mmol/L (98-107); Estimated CRCL calculation 51 ml/min; Estimated Glomerular Filt Rate > 60; Glucose 75 mg/dL (65-110); Magnesium 2.0 mg/dL (1.6-2.3); Potassium 3.5 mmol/L (3.4-5.0); Sodium 140 mmol/L (137-145); Total Protein 5.6 g/dL (6.3-8.2)
[2024-11-23 08:00] VITALS: O2SAT 98
[2024-11-23] MEDS: ENOXAPARIN 40 MG/0.4 ML SYRINGE SUB-Q (09:22)
[2024-11-23] MEDS: IBUPROFEN IV 800 MG/200 ML 800 MG/200 ML BAG 400 MG IVPB (09:24)
--- NOTE | 2024-11-23 10:18 | P.PNGS_ITS ---
Progress Note: A&P Assessment and Plan (1) SBO (small bowel obstruction): Code(s): K56.609 - Unspecified intestinal obstruction, unspecified as to partial versus complete obstruction Status: Acute Assessment and Plan: * Pod 2 status post exploratory laparotomy with ileal resection. Patient is doing well. Still no bowel movement or passing gas. WBC normalized. Afebrile. Minimal incisional pain. Getting up to chair with nursing assistance. NG tube with roughly 700 mL of brownish fluid overnight. * Continue NG tube decompression. * Pathology pending. * Encourage ambulation. We will continue to monitor with serial abdominal exams and labs. Consider Green catheter removal. Will discuss with surgeon. (2) Tobacco use: Code(s): Z72.0 - Tobacco use Status: Acute Plan Discussed patient's case and plan of care with Dr. Huang. Subjective Subjective Date/Time Seen: 11/23/24 10:18 Patient reports: no new complaints, no flatus and no bowel movement Interval history: Patient doing well. No acute events overnight. She does state that she feels ill because she has not been ambulating as much as she usually does. Minimal abdominal pain. No nausea or vomiting. She does state that today she woke up and felt hungry. NG tube with 700 mL overnight of brownish fluid. Exam GI: Inspection: normal to inspection and non-distended GI Palp: Yes Soft to palpation and Yes Tenderness to palpation present (GI) (Minimal) Auscultation: Hypoactive bowel sounds present Other: Incision clean and dry with amilcar intact. No surrounding redness or erythema. Minimal drainage on bandage. Urinary Catheter: Urinary Catheter: patent and draining and urine clear Psych: Mental Status: mental status grossly normal Objective Data Vital Signs Vital Signs: Vital Signs - 24 hr 11/22/24 11:22 11/22/24 15:22 11/22/24 20:00 Temperature 98.4 F 98.4 F Pulse Rate 99 94 Respiratory Rate 18 18 Blood Pressure 143/60 H 140/72 Pulse Oximetry 94 94 98 Oxygen Delivery Nasal Cannula Oxygen Flow Rate 2 11/22/24 22:00 11/23/24 08:00 Temperature 98.1 F Pulse Rate 89 Respiratory Rate 18 Blood Pressure 144/77 H Pulse Oximetry 95 Oxygen Delivery Room Air Oxygen Flow Rate Intake/Output Intake/Output: Intake & Output 0811/21/24 11/22/24 11/23/24 23:59 23:59 23:59 23:59 Intake Total 1050 2100 3773.3 1000 Output Total 50 331 2050 1150 Balance 1000 1769 1723.3 -150 Meds/Results Medications: Active Medications Generic Name Dose Route Start Last Admin Trade Name Freq PRN Reason Stop Dose Admin Albuterol/Ipratropium 3 ml 11/21/24 13:59 Ipratropium 0.5 Mg/Albuterol Sulfate 2.5 Mg Ampul.Neb 3 Ml INHALATION Q6HRT PRN wheezing Enoxaparin Sodium 40 mg 11/22/24 09:00 11/23/24 09:22 Enoxaparin 40 Mg/0.4 Ml Syringe SUB-Q 40 mg DAILY SUE Administration Guaifenesin 200 mg 11/21/24 13:59 Guaifenesin 200 Mg/10 Ml Udc PO Q4H PRN Cough Lactated Ringer's 1,000 mls @ 100 mls/hr 11/21/24 13:37 11/23/24 09:22 Lr - Lactated Ringers Iv IV CONT 100 mls/hr .Q10H SUE Administration Ibuprofen 800 mg in 200 mls @ 400 mls/hr 11/21/24 13:37 11/23/24 09:24 Caldolor 800 Mg/200 Ml IVPB 400 mls/hr Q6H PRN Administration Breakthrough Pain Rated 1-3 or NPO Morphine Sulfate 2 mg 11/21/24 13:37 11/22/24 15:10 Morphine Sulfate (*Crx) 2 Mg/Ml Inj IV PUSH 2 mg Q2H PRN Administration Breakthrough Pain Rated 4-6 or NPO Morphine Sulfate 4 mg 11/21/24 13:37 Morphine Sulfate (*Crx) 4 Mg/Ml Inj IV PUSH Q2H PRN Breakthrough Pain Rated 7-10 or NPO Naloxone HCl 0.1 mg 11/21/24 13:37 Naloxone Hcl 0.4 Mg/Ml Vial IV PUSH Q2M PRN Opiate Reversal Nicotine 1 patch 11/21/24 13:59 11/22/24 08:00 Nicotine (*Pbkc) 21 Mg Patch TRANSDERM 1 patch DAILY PRN Administration Nicotine Cravings Ondansetron HCl 4 mg 11/20/24 16:37 Ondansetron Inj 4 Mg/2 Ml Vial IV PUSH Q4H PRN Nausea Radiology Results: ITS Impressions Abdomen/Pelvis CT 11/20/24 14:45 IMPRESSION: Small bowel obstruction, with CT findings of C-loop configuration. Swirling mesenteric vessels may reflect a component of volvulus, possibly through a mesenteric defect. Early bowel wall ischemia/necrosis is suspected in a loop of small bowel in the deep pelvis. Small volume, nonsimple ascites. No pneumoperitoneum. Abdomen X-Ray 11/20/24 22:12 IMPRESSION: NG tube, in good position. Small bowel obstruction. Labs Labs: Laboratory Results - last 24 hr 11/23/24 05:52 WBC 10.0 RBC 3.87 L Hgb 11.5 L Hct 36.9 L MCV 95.3 MCH 29.7 MCHC 31.2 L RDW 14.6 H Plt Count 207 MPV 9.9 Sodium 140 Potassium 3.5 Chloride 103 Carbon Dioxide 31 H Anion Gap 6 BUN 14 Creatinine 0.61 L Estim Creat Clear Calc 51 Estimated GFR > 60 Glucose 75 Calcium 8.6 Magnesium 2.0 Total Bilirubin 0.6 AST 43 H ALT 18 Alkaline Phosphatase 47 Total Protein 5.6 L Albumin 3.1 L
[2024-11-23 14:00] VITALS: BP 143/53; PULSE 89; RESP 20; TEMP 36.3; O2SAT 97
--- NOTE | 2024-11-23 14:43 | P.PNIM_ITS ---
Progress Note: A&P Assessment and Plan (1) SBO (small bowel obstruction): Code(s): K56.609 - Unspecified intestinal obstruction, unspecified as to partial versus complete obstruction Status: Acute Assessment and Plan: CT abdomen on presentation is concerning for complete small-bowel obstruction with possible ischemia initially with lactic acidosis and leukocytosis of 24. Surgery consulted and since patient has had minimal improvement with NG decompression and bowel rest plan to proceed with exploratory laparotomy and possible bowel resection. patient reported last bowel movement was 5 days prior * Post-op day 2 * surgery consulted * exploratory laparotomy with bowel resection 11/21 * Continue NG tube at low intermittent suction for bowel decompression * Pain management * IV fluid * continue NPO advance once bowel function returns per surgery: had cast today but no BM * up to chair and ambulate as tolerated * Incentive spirometer (2) Hyperglycemia: Code(s): R73.9 - Hyperglycemia, unspecified Status: Acute Assessment and Plan: Patient does not have history of diabetes could be secondary to acute infection, SBO * Hemoglobin A1c 5.9 (3) Lactic acidosis: Code(s): E87.20 - Acidosis, unspecified Status: Resolved Assessment and Plan: Resolved with IV fluid (4) Nicotine dependence: Code(s): F17.200 - Nicotine dependence, unspecified, uncomplicated Status: Acute Assessment and Plan: Patient reports everyday smoker * Encouraged smoking cessation * Nicotine patch p.r.n. * Patient with some thick secretions will Mucinex * DuoNebs as needed (5) Hyponatremia: Code(s): E87.1 - Hypo-osmolality and hyponatremia Status: Resolved Assessment and Plan: likely secondary to fluid loss from bowel obstruction * continue IVF (6) Leukocytosis: Code(s): D72.829 - Elevated white blood cell count, unspecified Status: Resolved Assessment and Plan: WBC 24 POA * see above for likely cause * IV Zosyn * trend WBC/ trending down today 12 Plan Code status: Full code per patient DVT prophylaxis: SCD Stress ulcer prophylaxis: NA PT/OT notes: Pending post surgery Disposition: Patient admitted to the medical unit for inpatient stay due to complete small-bowel obstruction with ischemia underwent exploratory laparotomy and bowel resection. PT and OT for discharge planning needs current plan is to discharge home want bowel function returns patient is tolerating oral intake. Time Spent With Patient Time with patient: 15 - 25 minutes Subjective Date/time seen: 11/23/24 14:43 Interval history: Patient is an 79-year-old female admitted to the medical unit for further evaluation treatment of small-bowel obstruction concerning for complete bowel obstruction and possible ischemia. 11/23/2024: Patient with continued ABD tenderness as expected, NG to with continued drainage no BM however patient stated she had passed gas right before I arrived for assessment still no BM. patient denied any fevers chills, shortness of breath, nausea vomiting. Review of Systems Review of Systems: 12 systems were reviewed and are negativ e except for as per HPI. All systems reviewed & are unremarkable except as noted in HPI and below Exam Narrative: General: well appearing, appears stated age. Respiratory: clear to auscultation bilaterally. Cardiovascular: SR tachycardia Abdomen: Soft, midline incision with dressing in place post-op NG tube Extremities:Active ROM to all four extremities. Neuro: No focal deficits Skin: Warm, dry, and intact, without rash, erythema, or lesion. Psych: pleasant, cooperative, Objective Data Vital Signs Vital Signs: Vital Signs - 24 hr 11/22/24 15:22 11/22/24 20:00 11/22/24 22:00 Temperature 98.4 F 98.1 F Pulse Rate 94 89 Respiratory Rate 18 18 Blood Pressure 140/72 144/77 H Pulse Oximetry 94 98 95 Oxygen Delivery Nasal Cannula Oxygen Flow Rate 2 11/23/24 08:00 Temperature Pulse Rate Respiratory Rate Blood Pressure Pulse Oximetry 98 Oxygen Delivery Nasal Cannula Oxygen Flow Rate 2 Intake/Output Intake/Output: Intake & Output 11/20/24 11/21/24 11/22/24 11/23/24 23:59 23:59 23:59 23:59 Intake Total 1050 2100 3773.3 1200 Output Total 50 331 2050 1150 Balance 1000 1769 1723.3 50 Meds/Results Medications: Active Medications Generic Name Dose Route Start Last Admin Trade Name Freq PRN Reason Stop Dose Admin Albuterol/Ipratropium 3 ml 11/21/24 13:59 Ipratropium 0.5 Mg/Albuterol Sulfate 2.5 Mg Ampul.Neb 3 Ml INHALATION Q6HRT PRN wheezing Enoxaparin Sodium 40 mg 11/22/24 09:00 11/23/24 09:22 Enoxaparin 40 Mg/0.4 Ml Syringe SUB-Q 40 mg DAILY SUE Administration Guaifenesin 200 mg 11/21/24 13:59 Guaifenesin 200 Mg/10 Ml Udc PO Q4H PRN Cough Lactated Ringer's 1,000 mls @ 100 mls/hr 11/21/24 13:37 11/23/24 09:22 Lr - Lactated Ringers Iv IV CONT 100 mls/hr .Q10H SUE Administration Ibuprofen 800 mg in 200 mls @ 400 mls/hr 11/21/24 13:37 11/23/24 09:54 Caldolor 800 Mg/200 Ml IVPB Infused Q6H PRN Infusion Breakthrough Pain Rated 1-3 or NPO Morphine Sulfate 2 mg 11/21/24 13:37 11/22/24 15:10 Morphine Sulfate (*Crx) 2 Mg/Ml Inj IV PUSH 2 mg Q2H PRN Administration Breakthrough Pain Rated 4-6 or NPO Morphine Sulfate 4 mg 11/21/24 13:37 Morphine Sulfate (*Crx) 4 Mg/Ml Inj IV PUSH Q2H PRN Breakthrough Pain Rated 7-10 or NPO Naloxone HCl 0.1 mg 11/21/24 13:37 Naloxone Hcl 0.4 Mg/Ml Vial IV PUSH Q2M PRN Opiate Reversal Nicotine 1 patch 11/21/24 13:59 11/22/24 08:00 Nicotine (*Pbkc) 21 Mg Patch TRANSDERM 1 patch DAILY PRN Administration Nicotine Cravings Ondansetron HCl 4 mg 11/20/24 16:37 Ondansetron Inj 4 Mg/2 Ml Vial IV PUSH Q4H PRN Nausea Radiology Results: ITS Impressions Abdomen/Pelvis CT 11/20/24 14:45 IMPRESSION: Small bowel obstruction, with CT findings of C-loop configuration. Swirling mesenteric vessels may reflect a component of volvulus, possibly through a mesenteric defect. Early bowel wall ischemia/necrosis is suspected in a loop of small bowel in the deep pelvis. Small volume, nonsimple ascites. No pneumoperitoneum. Abdomen X-Ray 11/20/24 22:12 IMPRESSION: NG tube, in good position. Small bowel obstruction. Labs Labs: Laboratory Results - last 24 hr 11/23/24 05:52 WBC 10.0 RBC 3.87 L Hgb 11.5 L Hct 36.9 L MCV 95.3 MCH 29.7 MCHC 31.2 L RDW 14.6 H Plt Count 207 MPV 9.9 Sodium 140 Potassium 3.5 Chloride 103 Carbon Dioxide 31 H Anion Gap 6 BUN 14 Creatinine 0.61 L Estim Creat Clear Calc 51 Estimated GFR > 60 Glucose 75 Calcium 8.6 Magnesium 2.0 Total Bilirubin 0.6 AST 43 H ALT 18 Alkaline Phosphatase 47 Total Protein 5.6 L Albumin 3.1 L Quality VTE Prophylaxis VTE prophylaxis: mechanical ordered -Patient's previous records reviewed on admission -ER notes reviewed in detail on admission -discussed all findings and current treatment plan with patient/Family/POA -Consultations reviewed for recommendations -Patient's disposition for safe discharge discussed with director of casework Dictation performed by [employer] direct speech recognition software, therefore business administration teacher variants and typographical errors may occur. Hospitalist MIPS Advance Care Plan I have confirmed that the patient's Advanced Care Plan is present, code status is documented, or surrogate decision maker is listed in patient medical record.: Yes Medication Reconciliation I have utilized all available resources to obtain, update and review the patients current medications (includes all prescriptions, OTC, herbals, cannabis, and nutritional supplements).: Yes The patient is not eligible for med reconciliation; the patient is in a emergent medical situation where delaying treatment would jeopardize the patients health.: No
[2024-11-23 19:51] VITALS: PULSE 89; RESP 20; O2SAT 97
[2024-11-23] MEDS: MORPHINE SULFATE (*CRX) 2 MG/ML INJ IV PUSH (20:41)
[2024-11-23 22:00] VITALS: BP 109/73; PULSE 74; RESP 18; TEMP 36.4; O2SAT 93
--- NOTE | 2024-11-24 | ECHO_ITS ---
Patient Info Name: Rody Wynn Age: 79 years : 1945 Gender: Female Ht: 63 in Wt: 130 lbs BSA: 1.63 m2 HR: 69 bpm BP: 155 / 59 mmHg Technical Quality: Good Exam Date: 11/24/2024 3:45 PM Patient Status: I Admit Date: 11/20/2024 Exam Type: CA echo doppler color flow Complete two-dimensional, color flow and Doppler transthoracic echocardiogram is performed. Staff Referring Physician: [facility] [employer]: Michelle Duvall Attending Provider: Sulaiman Corona Summary 1. Complete two-dimensional, color flow and Doppler transthoracic echocardiogram is performed. 2. Left ventricular chamber dimension is normal. 3. Left ventricular systolic function is hyperdynamic, estimated at >70. 4. The left ventricular diastolic function is abnormal. 5. E/e' 11 is mildly elevated. 6. Left atrial chamber dimension is mildly enlarged. 7. There is mild aortic valve sclerosis. 8. There is mild tricuspid valve regurgitation. 9. Mild pulmonary hypertension, estimated pulmonary arterial systolic pressure is 45 mmHg. 10. Dilated inferior vena cava with >50% collapse upon inspiration consistent with elevated right atrial pressure, 10 mmHg. Left Ventricle E/e' 11 is mildly elevated. Left ventricular chamber dimension is normal. Left ventricular systolic function is hyperdynamic, estimated at >70. The left ventricular diastolic function is abnormal. Right Ventricle Right ventricular chamber dimension is normal. Right ventricular systolic function is normal and with normal TAPSE 2.1 cm. Left Atria Left atrial chamber dimension is mildly enlarged. Right Atria Right atrial chamber dimension is normal. Aortic Valve The aortic valve is trileaflet. There is mild aortic valve sclerosis. There is no aortic valve stenosis. There is no aortic valve regurgitation. Pulmonic Valve There is no pulmonic regurgitation. Mitral Valve There is no mitral valve stenosis. There is no mitral valve regurgitation. Tricuspid Valve There is mild tricuspid valve regurgitation. Mild pulmonary hypertension, estimated pulmonary arterial systolic pressure is 45 mmHg. Pericardium/Pleural There is no pericardial effusion. Inferior Vena Cava Dilated inferior vena cava with >50% collapse upon inspiration consistent with elevated right atrial pressure, 10 mmHg. Aorta The aortic root size at the sinus of Valsalva is normal. Left Ventricular Outflow Tract Name Value Normal LVOT 2D LVOT Diameter 1.7 cm LVOT Doppler LVOT Peak Velocity 139 cm/s LVOT Peak Gradient 8 mmHg LVOT Mean Gradient 4 mmHg LVOT VTI 34 cm LVOT VTI/AV VTI Ratio 0.8 LVOT Stroke Volume 81 ml LVOT CO 5.2 l/min LVOT CI 3.2 l/min/m2 Pulmonic Valve Name Value Normal RVOT Doppler RVOT Peak Velocity 65 cm/s RVOT Peak Gradient 2 mmHg PV Doppler PV Peak Velocity 99 cm/s PV Peak Gradient 4 mmHg Mitral Valve Name Value Normal MV Diastolic Function MV E Peak Velocity 113 cm/s MV A Peak Velocity 106 cm/s MV E/A 1.1 MV Decel Time (PW) 210 ms MV Annular TDI MV E/e' (Septal) 10.0 MV E/e' (Lateral) 12.5 MV E/e' (Average) 11.3 Tricuspid Valve Name Value Normal TV Regurgitation Doppler TR Peak Velocity 297 cm/s TR Peak Gradient 32 mmHg Estimated PAP/RSVP RA Pressure 10 mmHg <=5 PA Systolic Pressure 45 mmHg <36 RV Systolic Pressure 45 mmHg <36 Aortic Valve Name Value Normal AV Doppler AV Peak Velocity 195 cm/s AV Peak Gradient 13 mmHg AV Mean Gradient 7 mmHg AV VTI 43 cm AV Area (Cont Eq VTI) 1.9 cm2 >=3.0 AV Area (Cont Eq Rocky) 1.7 cm2 AV DI (Rocky) 0.71 AV Regurgitation 2D LVOT Area 2.4 cm2 Ventricles Name Value Normal LV Dimensions 2D/MM IVS Diastolic Thickness (2D) 0.7 cm 0.6-1.0 LVID Diastole (2D) 3.9 cm 3.8-5.2 LVIW Diastolic Thickness (2D) 0.7 cm 0.6-0.9 LVID Systole (2D) 2.0 cm 2.2-3.5 LVOT Diameter 1.7 cm LV Mass (2D Cubed) 76.22 g 67.00-162.00 LV Mass Index (2D Cubed) 47 g/m2 43-95 Relative Wall Thickness (2D) 0.38 <=0.42 LV Fractional Shortening/Ejection Fraction 2D/MM LV Fractional Shortening (2D) 50 % 27-45 LV EF (2D Teichholz) 82 % LV Diastolic Volume (4C MOD) 69 ml LV EF (4C MOD) 64 % LV Diastolic Volume (2C MOD) 65 ml LV EF (2C MOD) 73 % LV Diastolic Volume (BP MOD) 70 ml 46-106 LV Diastolic Volume Index (BP MOD) 43 ml/m2 29-61 LV Systolic Volume (BP MOD) 21 ml 14-42 LV Systolic Volume Index (BP MOD) 13 ml/m2 8-24 LV EF (BP MOD) 69 % 54-74 LV Diastolic Length (4C) 7.2 cm LV Systolic Length (4C) 5.2 cm LV Stroke Volume (4C MOD) 44 ml Atria Name Value Normal LA Dimensions LA Volume (4C A-L) 35 ml LA Volume (BP A-L) 30 ml RA Dimensions RA Systolic Major [place] Length (4C) 4.7 cm 2.2-2.8 RA Area (4C) 12.3 cm2 <=18.0 Report Signatures
[2024-11-24] MEDS: LACTATED RINGERS 1,000 ML 100 ML IV CONT ×2 (02:50→16:00)
[2024-11-24 06:04] LABS: Hematocrit 34.5 % (37.0-47.0); Hemoglobin 10.8 g/dL (12.0-15.0); Mean Corpuscular HGB Conc 31.3 g/dl (32-36); Mean Corpuscular Hemoglobin 29.7 pg (26-34); Mean Corpuscular Volume 94.8 fl (80-100); Platelet Count Result 223 k/mm3 (150-375); Red Blood Count 3.64 M/mm3 (4.2-5.4); White Blood Count 10.6 K/mm3 (4.5-10.0)
[2024-11-24 06:33] LABS: Alanine Aminotransferase 20 U/L (6-35); Albumin Level 3.0 g/dL (3.5-5.1); Alkaline Phosphatase 49 U/L (38-126); Anion Gap 9 mmol/L (4-12); Aspartate Amino Transferase 30 U/L (14-36); Bilirubin,Total 0.5 mg/dL (0.2-1.3); Blood Urea Nitrogen 14 mg/dL (7-17); Calcium 8.7 mg/dL (8.4-10.2); Carbon Dioxide 29 mmol/L (22-30); Chloride 104 mmol/L (98-107); Estimated CRCL calculation 55 ml/min; Estimated Glomerular Filt Rate > 60; Glucose 72 mg/dL (65-110); Magnesium 1.9 mg/dL (1.6-2.3); Potassium 3.5 mmol/L (3.4-5.0); Sodium 142 mmol/L (137-145); Total Protein 5.3 g/dL (6.3-8.2)
--- NOTE | 2024-11-24 08:12 | P.PNIM_ITS ---
Progress Note: A&P Assessment and Plan (1) SBO (small bowel obstruction): Code(s): K56.609 - Unspecified intestinal obstruction, unspecified as to partial versus complete obstruction Status: Acute Assessment and Plan: -CT abdomen on presentation is concerning for complete small-bowel obstruction with possible ischemia initially with lactic acidosis and leukocytosis of 24. Surgery consulted and since patient has had minimal improvement with NG decompression. patient reported last bowel movement was 5 days prior - s/p exploratory laparotomy with bowel resection 11/[address] Huang. - Continue NG tube at low intermittent suction for bowel decompression - Pain management - IV fluid - monitor volume status - continue NPO advance once bowel function returns per surgery: had small BM today - up to chair and ambulate as tolerated - Incentive spirometer - PT/OT (2) Acute respiratory failure: Code(s): J96.00 - Acute respiratory failure, unspecified whether with hypoxia or hypercapnia Status: Acute Assessment and Plan: - patient 88% on RA 11/22 - currently requiring 2L NC - faint bibasilar rales on exam - check CXR - decrease IV fluids - monitor UOP - continue IS - spot diuresis as needed (3) Hyperglycemia: Code(s): R73.9 - Hyperglycemia, unspecified Status: Acute Assessment and Plan: -Patient does not have history of diabetes could be secondary to acute infection, SBO -Hemoglobin A1c 5.9 (4) Lactic acidosis: Code(s): E87.20 - Acidosis, unspecified Status: Resolved Assessment and Plan: -Resolved with IV fluid (5) Nicotine dependence: Code(s): F17.200 - Nicotine dependence, unspecified, uncomplicated Status: Acute Assessment and Plan: -Patient reports everyday smoker -Encouraged smoking cessation -Nicotine patch p.r.n. -Patient with some thick secretions will Mucinex -DuoNebs as needed (6) Hyponatremia: Code(s): E87.1 - Hypo-osmolality and hyponatremia Status: Resolved Assessment and Plan: -likely secondary to fluid loss from bowel obstruction - resolved with IV fluids (7) Leukocytosis: Code(s): D72.829 - Elevated white blood cell count, unspecified Status: Resolved Assessment and Plan: - WBC 24 POA - likely secondary to bowel obstruction -s/p IV Zosyn - WBC normalized Plan Code status: Full code per patient DVT prophylaxis: Enoxaparin Stress ulcer prophylaxis: NA Disposition: TBD pending PT/OT recs Subjective Date/time seen: 11/24/24 08:12 Interval history: 79-year-old female with past medical history of uterine cancer, 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 Patient seen and examined at bedside. Patient had small-bowel this morning and is passing gas. Denies significant abdominal pain. Hopeful to have NG tube removed soon. Review of Systems Review of Systems: All systems reviewed & are unremarkable except as noted in HPI and below Exam Narrative: General: NAD Eyes: EOMI ENT: neck supple Cardiovascular: Regular rate and rhythm Respiratory: Bibasilar rales, respirations even and unlabored on 2 L nasal cannula Gastrointestinal: mildly distended, nontender, bowel sounds hypoactive, NG in place with large amount of bilious output. Surgical incision well approximated without surrounding erythema or drainage. Genitourinary: no suprapubic tenderness Musculoskeletal: No edema Skin: warm, dry Neuro: Alert. Psych: Mood appropriate Objective Data Vital Signs Vital Signs: Vital Signs - 24 hr 11/23/24 14:00 11/23/24 19:51 11/23/24 22:00 Temperature 97.3 F L 97.6 F Pulse Rate 89 89 74 Respiratory Rate 20 20 18 Blood Pressure 143/53 H 109/73 Pulse Oximetry 97 97 93 Oxygen Delivery Nasal Cannula Oxygen Flow Rate 2 Intake/Output Intake/Output: Intake & Output 11/21/24 11/22/24 11/23/24 11/24/24 23:59 23:59 23:59 23:59 Intake Total 2100 3773.3 2200 0 Output Total 331 2050 2475 Balance 1769 1723.3 -275 0 Meds/Results Medications: Active Medications Generic Name Dose Route Start Last Admin Trade Name Freq PRN Reason Stop Dose Admin Albuterol/Ipratropium 3 ml 11/21/24 13:59 Ipratropium 0.5 Mg/Albuterol Sulfate 2.5 Mg Ampul.Neb 3 Ml INHALATION Q6HRT PRN wheezing Enoxaparin Sodium 40 mg 11/22/24 09:00 11/23/24 09:22 Enoxaparin 40 Mg/0.4 Ml Syringe SUB-Q 40 mg DAILY SUE Administration Guaifenesin 200 mg 11/21/24 13:59 Guaifenesin 200 Mg/10 Ml Udc PO Q4H PRN Cough Lactated Ringer's 1,000 mls @ 100 mls/hr 11/21/24 13:37 11/24/24 02:50 Lr - Lactated Ringers Iv IV CONT 100 mls/hr .Q10H SUE Administration Ibuprofen 800 mg in 200 mls @ 400 mls/hr 11/21/24 13:37 11/23/24 09:54 Caldolor 800 Mg/200 Ml IVPB Infused Q6H PRN Infusion Breakthrough Pain Rated 1-3 or NPO Morphine Sulfate 2 mg 11/21/24 13:37 11/23/24 20:41 Morphine Sulfate (*Crx) 2 Mg/Ml Inj IV PUSH 2 mg Q2H PRN Administration Breakthrough Pain Rated 4-6 or NPO Morphine Sulfate 4 mg 11/21/24 13:37 Morphine Sulfate (*Crx) 4 Mg/Ml Inj IV PUSH Q2H PRN Breakthrough Pain Rated 7-10 or NPO Naloxone HCl 0.1 mg 11/21/24 13:37 Naloxone Hcl 0.4 Mg/Ml Vial IV PUSH Q2M PRN Opiate Reversal Nicotine 1 patch 11/21/24 13:59 11/22/24 08:00 Nicotine (*Pbkc) 21 Mg Patch TRANSDERM 1 patch DAILY PRN Administration Nicotine Cravings Ondansetron HCl 4 mg 11/20/24 16:37 Ondansetron Inj 4 Mg/2 Ml Vial IV PUSH Q4H PRN Nausea Radiology Results: ITS Impressions Abdomen/Pelvis CT 11/20/24 14:45 IMPRESSION: Small bowel obstruction, with CT findings of C-loop configuration. Swirling mesenteric vessels may reflect a component of volvulus, possibly through a mesenteric defect. Early bowel wall ischemia/necrosis is suspected in a loop of small bowel in the deep pelvis. Small volume, nonsimple ascites. No pneumoperitoneum. Abdomen X-Ray 11/20/24 22:12 IMPRESSION: NG tube, in good position. Small bowel obstruction. Labs Labs: Laboratory Results - last 24 hr 08/20/25 05:53 WBC 10.6 H RBC 3.64 L Hgb 10.8 L Hct 34.5 L MCV 94.8 MCH 29.7 MCHC 31.3 L RDW 14.3 Plt Count 223 MPV 9.6 Sodium 142 Potassium 3.5 Chloride 104 Carbon Dioxide 29 Anion Gap 9 BUN 14 Creatinine 0.56 L Estim Creat Clear Calc 55 Estimated GFR > 60 Glucose 72 Calcium 8.7 Magnesium 1.9 Total Bilirubin 0.5 AST 30 ALT 20 Alkaline Phosphatase 49 Total Protein 5.3 L Albumin 3.0 L
[2024-11-24] MEDS: ENOXAPARIN 40 MG/0.4 ML SYRINGE SUB-Q (08:13)
[2024-11-24] MEDS: BISACODYL 10 MG SUPPOSITORY RECTAL (08:13)
[2024-11-24 09:22] VITALS: O2SAT 93
--- NOTE | 2024-11-24 10:22 | P.PNGS_ITS ---
Progress Note: A&P Assessment and Plan (1) SBO (small bowel obstruction): Code(s): K56.609 - Unspecified intestinal obstruction, unspecified as to partial versus complete obstruction Status: Acute Assessment and Plan: * Pod 3 status post exploratory laparotomy with ileal resection. Patient is doing well. Suppository given this morning. Patient reports having a bowel movement, but nurse denies this. WBC 10.2. Afebrile. Minimal incisional pain. Getting up to chair with nursing assistance. NG tube with over a L of brownish drainage since yesterday. Patient does endorse excessive ice chip intake. Encouraged patient and nurse to limit this amount. * Continue NG tube decompression. * Pathology results: Chronic diverticulitis without rupture acute and chronic ileitis with focal mural ischemic infarction and ulceration, congestion of the submucosal vasculature consistent with obstruction, no evidence of perforation of the bowel, to reactive lymph nodes with hemorrhagic changes * Encourage ambulation. We will continue to monitor with serial abdominal exams and labs. Consider Green catheter removal. Will discuss with surgeon. (2) Tobacco use: Code(s): Z72.0 - Tobacco use Status: Acute Plan Discussed patient's case and plan of care with Dr. Huang. Subjective Subjective Date/Time Seen: 11/24/24 10:22 Post Op day: 3 Patient reports: no new complaints and afebrile Interval history: Patient doing well today, but she states that she wants to get up and move. Suppository given this morning. Patient states that she had a bowel movement, but per nursing staff it was just urine. WBC 10.6. Afebrile. Green catheter removed yesterday. Voiding appropriately. Exam Const: General: comfortable and no acute distress GI: Inspection: normal to inspection and distended GI Palp: Yes Soft to palpation Auscultation: normal bowel sounds Other: Incision clean and dry with amilcar intact. No surrounding redness or erythema. Minimal drainage on bandage. Mildly distended. Patient it is some tenderness to palpation of left sided abdomen. : General: Yes bladder normal to palpation Objective Data Vital Signs Vital Signs: Vital Signs - 24 hr 11/23/24 14:00 11/23/24 19:51 11/23/24 22:00 Temperature 97.3 F L 97.6 F Pulse Rate 89 89 74 Respiratory Rate 20 20 18 Blood Pressure 143/53 H 109/73 Pulse Oximetry 97 97 93 Oxygen Delivery Nasal Cannula Oxygen Flow Rate 2 11/24/24 09:22 Temperature Pulse Rate Respiratory Rate Blood Pressure Pulse Oximetry 93 Oxygen Delivery Nasal Cannula Oxygen Flow Rate 2 Intake/Output Intake/Output: Intake & Output 11/21/24 11/22/24 11/23/24 11/24/24 23:59 23:59 23:59 23:59 Intake Total 2100 3773.3 2200 0 Output Total 331 2050 2475 Balance 1769 1723.3 -275 0 Meds/Results Medications: Active Medications Generic Name Dose Route Start Last Admin Trade Name Freq PRN Reason Stop Dose Admin Albuterol/Ipratropium 3 ml 11/21/24 13:59 Ipratropium 0.5 Mg/Albuterol Sulfate 2.5 Mg Ampul.Neb 3 Ml INHALATION Q6HRT PRN wheezing Enoxaparin Sodium 40 mg 11/22/24 09:00 11/24/24 08:13 Enoxaparin 40 Mg/0.4 Ml Syringe SUB-Q 40 mg DAILY SUE Administration Guaifenesin 200 mg 11/21/24 13:59 Guaifenesin 200 Mg/10 Ml Udc PO Q4H PRN Cough Lactated Ringer's 1,000 mls @ 100 mls/hr 11/21/24 13:37 11/24/24 02:50 Lr - Lactated Ringers Iv IV CONT 100 mls/hr .Q10H SUE Administration Ibuprofen 800 mg in 200 mls @ 400 mls/hr 11/21/24 13:37 11/23/24 09:54 Caldolor 800 Mg/200 Ml IVPB Infused Q6H PRN Infusion Breakthrough Pain Rated 1-3 or NPO Morphine Sulfate 2 mg 11/21/24 13:37 11/23/24 20:41 Morphine Sulfate (*Crx) 2 Mg/Ml Inj IV PUSH 2 mg Q2H PRN Administration Breakthrough Pain Rated 4-6 or NPO Morphine Sulfate 4 mg 11/21/24 13:37 Morphine Sulfate (*Crx) 4 Mg/Ml Inj IV PUSH Q2H PRN Breakthrough Pain Rated 7-10 or NPO Naloxone HCl 0.1 mg 11/21/24 13:37 Naloxone Hcl 0.4 Mg/Ml Vial IV PUSH Q2M PRN Opiate Reversal Nicotine 1 patch 11/21/24 13:59 11/22/24 08:00 Nicotine (*Pbkc) 21 Mg Patch TRANSDERM 1 patch DAILY PRN Administration Nicotine Cravings Ondansetron HCl 4 mg 11/20/24 16:37 Ondansetron Inj 4 Mg/2 Ml Vial IV PUSH Q4H PRN Nausea Radiology Results: ITS Impressions Abdomen/Pelvis CT 11/20/24 14:45 IMPRESSION: Small bowel obstruction, with CT findings of C-loop configuration. Swirling mesenteric vessels may reflect a component of volvulus, possibly through a mesenteric defect. Early bowel wall ischemia/necrosis is suspected in a loop of small bowel in the deep pelvis. Small volume, nonsimple ascites. No pneumoperitoneum. Abdomen X-Ray 11/20/24 22:12 IMPRESSION: NG tube, in good position. Small bowel obstruction. Labs Labs: Laboratory Results - last 24 hr 11/24/24 05:53 WBC 10.6 H RBC 3.64 L Hgb 10.8 L Hct 34.5 L MCV 94.8 MCH 29.7 MCHC 31.3 L RDW 14.3 Plt Count 223 MPV 9.6 Sodium 142 Potassium 3.5 Chloride 104 Carbon Dioxide 29 Anion Gap 9 BUN 14 Creatinine 0.56 L Estim Creat Clear Calc 55 Estimated GFR > 60 Glucose 72 Calcium 8.7 Magnesium 1.9 Total Bilirubin 0.5 AST 30 ALT 20 Alkaline Phosphatase 49 Total Protein 5.3 L Albumin 3.0 L
[2024-11-24 14:38] LABS: NT Pro B Type Natriuretic Pept 1360 pg/mL (19.9-100)
[2024-11-24 15:00] VITALS: BP 155/59; PULSE 75; RESP 18; TEMP 36.3; O2SAT 96
[2024-11-24] MEDS: FUROSEMIDE INJ 40 MG/4 ML VIAL 20 MG IV PUSH (16:00)
[2024-11-24] MEDS: MORPHINE SULFATE (*CRX) 2 MG/ML INJ IV PUSH (17:26)
--- NOTE | 2024-11-24 18:16 | PC.NURSE ---
Patient had very small formed bowel movement on 11/24/2024
[2024-11-24 21:52] VITALS: PULSE 96; RESP 20; O2SAT 96
[2024-11-24 22:00] VITALS: BP 148/49; PULSE 64; RESP 18; TEMP 36.3; O2SAT 94
[2024-11-25 06:07] VITALS: BP 143/57; PULSE 71; RESP 18; TEMP 36.3; O2SAT 97
[2024-11-25 06:14] LABS: Hematocrit 35.3 % (37.0-47.0); Hemoglobin 10.8 g/dL (12.0-15.0); Mean Corpuscular HGB Conc 30.6 g/dl (32-36); Mean Corpuscular Hemoglobin 28.9 pg (26-34); Mean Corpuscular Volume 94.4 fl (80-100); Platelet Count Result 232 k/mm3 (150-375); Red Blood Count 3.74 M/mm3 (4.2-5.4); White Blood Count 8.7 K/mm3 (4.5-10.0)
[2024-11-25 06:37] LABS: Alanine Aminotransferase 20 U/L (6-35); Albumin Level 3.2 g/dL (3.5-5.1); Alkaline Phosphatase 43 U/L (38-126); Anion Gap 9 mmol/L (4-12); Aspartate Amino Transferase 31 U/L (14-36); Bilirubin,Total 0.5 mg/dL (0.2-1.3); Blood Urea Nitrogen 12 mg/dL (7-17); Calcium 8.8 mg/dL (8.4-10.2); Carbon Dioxide 31 mmol/L (22-30); Chloride 102 mmol/L (98-107); Estimated CRCL calculation 56 ml/min; Estimated Glomerular Filt Rate > 60; Glucose 77 mg/dL (65-110); Magnesium 1.9 mg/dL (1.6-2.3); Potassium 3.0 mmol/L (3.4-5.0); Sodium 142 mmol/L (137-145); Total Protein 5.9 g/dL (6.3-8.2)
[2024-11-25 08:00] VITALS: O2SAT 97
--- NOTE | 2024-11-25 08:16 | P.PNIM_ITS ---
Progress Note: A&P Assessment and Plan (1) SBO (small bowel obstruction): Code(s): K56.609 - Unspecified intestinal obstruction, unspecified as to partial versus complete obstruction Status: Acute Assessment and Plan: -CT abdomen on presentation concerning for complete small-bowel obstruction with possible ischemia initially with lactic acidosis and leukocytosis of 24. Surgery consulted and since patient has had minimal improvement with NG decompression. patient reported last bowel movement was 5 days prior - s/p exploratory laparotomy with bowel resection 11/[address] Huang. - s/p NG tube removed 11/25 - Pain management - stop IV fluids - advance diet per surgery - up to chair and ambulate as tolerated - Incentive spirometer - PT/OT (2) Acute respiratory failure: Code(s): J96.00 - Acute respiratory failure, unspecified whether with hypoxia or hypercapnia Status: Acute Assessment and Plan: - patient 88% on RA 11/22 - currently requiring 2L NC - CXR with patchy opacities and small bilateral pleural effusions, BNP 1360 - echo with EF >70%, abnormal diastolic function, mild pulmonary HTN - denied CHF history. Patient is an everyday smoker. - stop IVF - monitor UOP - continue IS - received IV lasix x1 - attempt to wean to RA (3) Hyperglycemia: Code(s): R73.9 - Hyperglycemia, unspecified Status: Acute Assessment and Plan: -Patient does not have history of diabetes could be secondary to acute infection, SBO -Hemoglobin A1c 5.9 (4) Lactic acidosis: Code(s): E87.20 - Acidosis, unspecified Status: Resolved Assessment and Plan: -Resolved with IV fluid (5) Nicotine dependence: Code(s): F17.200 - Nicotine dependence, unspecified, uncomplicated Status: Acute Assessment and Plan: -Patient reports everyday smoker -Encouraged smoking cessation -Nicotine patch p.r.n. -Patient with some thick secretions will Mucinex -DuoNebs as needed (6) Hyponatremia: Code(s): E87.1 - Hypo-osmolality and hyponatremia Status: Resolved Assessment and Plan: -likely secondary to fluid loss from bowel obstruction - resolved with IV fluids (7) Leukocytosis: Code(s): D72.829 - Elevated white blood cell count, unspecified Status: Resolved Assessment and Plan: - WBC 24 POA - likely secondary to bowel obstruction -s/p IV Zosyn - WBC normalized Plan Code status: Full code per patient DVT prophylaxis: Enoxaparin Stress ulcer prophylaxis: NA Disposition: likely SNF Subjective Date/time seen: 11/25/24 08:16 Interval history: 79-year-old female with past medical history of uterine cancer, 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 Patient seen and examined at bedside. NG tube removed, patient feeling better. Denies SOB. Review of Systems Review of Systems: 12 systems were reviewed and are negativ e except for as per HPI. All systems reviewed & are unremarkable except as noted in HPI and below Exam Narrative: General: NAD Eyes: EOMI ENT: neck supple Cardiovascular: Regular rate and rhythm Respiratory: clear to auscultation, respirations even and unlabored on 2 L nasal cannula Gastrointestinal: mildly distended, nontender, bowel sounds hypoactive, Surgical incision well approximated without surrounding erythema or drainage. Genitourinary: no suprapubic tenderness Musculoskeletal: No edema Skin: warm, dry Neuro: Alert. Psych: Mood appropriate Objective Data Vital Signs Vital Signs: Vital Signs - 24 hr 11/24/24 09:22 11/24/24 15:00 11/24/24 20:00 Temperature 97.4 F L Pulse Rate 75 Respiratory Rate 18 Blood Pressure 155/59 H Pulse Oximetry 93 96 Oxygen Delivery Nasal Cannula Room Air Oxygen Flow Rate 2 Fraction of Inspired Oxygen 11/24/24 21:52 11/24/24 22:00 11/25/24 06:07 Temperature 97.3 F L 97.4 F L Pulse Rate 96 64 71 Respiratory Rate 20 18 18 Blood Pressure 148/49 H 143/57 H Pulse Oximetry 96 94 97 Oxygen Delivery Room Air Oxygen Flow Rate Fraction of Inspired Oxygen 21 Intake/Output Intake/Output: Intake & Output 11/22/24 11/23/24 11/24/24 11/25/24 23:59 23:59 23:59 23:59 Intake Total 3773.3 2200 1000 Output Total 0 9155 650 50 Balance 1723.3 -275 350 -50 Meds/Results Medications: Active Medications Generic Name Dose Route Start Last Admin Trade Name Freq PRN Reason Stop Dose Admin Albuterol/Ipratropium 3 ml 11/21/24 13:59 Ipratropium 0.5 Mg/Albuterol Sulfate 2.5 Mg Ampul.Neb 3 Ml INHALATION Q6HRT PRN wheezing Enoxaparin Sodium 40 mg 11/22/24 09:00 11/24/24 08:13 Enoxaparin 40 Mg/0.4 Ml Syringe SUB-Q 40 mg DAILY SUE Administration Guaifenesin 200 mg 11/21/24 13:59 Guaifenesin 200 Mg/10 Ml Udc PO Q4H PRN Cough Lactated Ringer's 1,000 mls @ 50 mls/hr 11/21/24 13:37 11/24/24 16:00 Lr - Lactated Ringers Iv IV CONT 100 mls/hr .Q20H SUE Administration Ibuprofen 800 mg in 200 mls @ 400 mls/hr 11/21/24 13:37 11/23/24 09:54 Caldolor 800 Mg/200 Ml IVPB Infused Q6H PRN Infusion Breakthrough Pain Rated 1-3 or NPO Potassium Chloride 40 meq/ 520 mls @ 130 mls/hr 11/25/24 08:14 Sodium Chloride IVPB 11/25/24 12:13 ONCE ONE Morphine Sulfate 2 mg 11/21/24 13:37 11/24/24 17:26 Morphine Sulfate (*Crx) 2 Mg/Ml Inj IV PUSH 2 mg Q2H PRN Administration Breakthrough Pain Rated 4-6 or NPO Morphine Sulfate 4 mg 11/21/24 13:37 Morphine Sulfate (*Crx) 4 Mg/Ml Inj IV PUSH Q2H PRN Breakthrough Pain Rated 7-10 or NPO Naloxone HCl 0.1 mg 11/21/24 13:37 Naloxone Hcl 0.4 Mg/Ml Vial IV PUSH Q2M PRN Opiate Reversal Nicotine 1 patch 11/21/24 13:59 11/22/24 08:00 Nicotine (*Pbkc) 21 Mg Patch TRANSDERM 1 patch DAILY PRN Administration Nicotine Cravings Ondansetron HCl 4 mg 11/20/24 16:37 Ondansetron Inj 4 Mg/2 Ml Vial IV PUSH Q4H PRN Nausea Perflutren Lipid Microsphere 0 ml 11/24/24 15:22 Perflutren Lipid Microspheres 1.5 Ml Vial Diluted To 10 Ml Total Volume IV PUSH 11/27/24 15:22 ONCE PRN adequate visualization Protocol Radiology Results: ITS Impressions Abdomen/Pelvis CT 11/20/24 14:45 IMPRESSION: Small bowel obstruction, with CT findings of C-loop configuration. Swirling mesenteric vessels may reflect a component of volvulus, possibly through a mesenteric defect. Early bowel wall ischemia/necrosis is suspected in a loop of small bowel in the deep pelvis. Small volume, nonsimple ascites. No pneumoperitoneum. Abdomen X-Ray 11/20/24 22:12 IMPRESSION: NG tube, in good position. Small bowel obstruction. Chest X-Ray 11/24/24 15:32 IMPRESSION: 1: Patchy opacities in the mid and lower lungs, greater on the left. Differential includes but is not limited to edema or pneumonia. Recommend follow-up to resolution. Consider a chest CT for further assessment. 2. Probable small bilateral pleural effusions, larger on the left. 3. There is a 1.1 cm sclerotic lesion in the proximal left humerus and a 1.5 cm sclerotic lesion in the proximal left humerus. Differential includes bone islands or metastatic bone lesions. A total body bone scan is recommended. Labs Labs: Laboratory Results - last 24 hr 11/24/24 11/25/24 05:53 06:03 WBC 8.7 RBC 3.74 L Hgb 10.8 L Hct 35.3 L MCV 94.4 MCH 28.9 MCHC 30.6 L RDW 13.9 Plt Count 232 MPV 9.6 Sodium 142 Potassium 3.0 L Chloride 102 Carbon Dioxide 31 H Anion Gap 9 BUN 12 Creatinine 0.55 L Estim Creat Clear Calc 56 Estimated GFR > 60 Glucose 77 Calcium 8.8 Magnesium 1.9 Total Bilirubin 0.5 AST 31 ALT 20 Alkaline Phosphatase 43 NT-Pro-B Natriuret Pep 1360 H Total Protein 5.9 L Albumin 3.2 L Quality VTE Prophylaxis VTE prophylaxis: mechanical ordered
--- NOTE | 2024-11-25 10:04 | P.PNGS_ITS ---
Progress Note: A&P Assessment and Plan (1) SBO (small bowel obstruction): Code(s): K56.609 - Unspecified intestinal obstruction, unspecified as to partial versus complete obstruction Status: Acute Assessment and Plan: * Pod 4 status post exploratory laparotomy with ileal resection. Patient is doing well. BM yesterday. Endorses passing gas yesterday. + bowel sounds. WBC 8.7. Afebrile. Minimal incisional pain. NG tube with minimal output overnight. NG tube removed today. * Clear liquid diet today. Will plan to advance this later as tolerated. * Pathology results: Chronic diverticulitis without rupture acute and chronic ileitis with focal mural ischemic infarction and ulceration, congestion of the submucosal vasculature consistent with obstruction, no evidence of perforation of the bowel, two reactive lymph nodes with hemorrhagic changes. * Encourage ambulation. We will continue to monitor with serial abdominal exams and labs. (2) Tobacco use: Code(s): Z72.0 - Tobacco use Status: Acute Plan Discussed patient's case and plan of care with Dr. Huang. Subjective Subjective Date/Time Seen: 11/25/24 10:04 Patient reports: no new complaints, flatus and bowel movement Interval history: Patient is doing well today. BM yesterday. Feels like she wants to get up and move. Afebrile overnight. WBC normalized to 8.7. Exam Const: General: comfortable and no acute distress GI: Inspection: normal to inspection GI Palp: Yes Soft to palpation and Yes Tenderness to palpation present (GI) (mild diffuse tenderness) Auscultation: normal bowel sounds and Hypoactive bowel sounds present Other: Incision clean and dry with amilcar intact. No surrounding redness or erythema. Patient has some tenderness to palpation. Objective Data Vital Signs Vital Signs: Vital Signs - 24 hr 11/24/24 15:00 11/24/24 20:00 11/24/24 21:52 Temperature 97.4 F L Pulse Rate 75 96 Respiratory Rate 18 20 Blood Pressure 155/59 H Pulse Oximetry 96 96 Oxygen Delivery Room Air Room Air Oxygen Flow Rate Fraction of Inspired Oxygen 11/24/24 22:00 11/25/24 06:07 11/25/24 08:00 Temperature 97.3 F L 97.4 F L Pulse Rate 64 71 Respiratory Rate 18 18 Blood Pressure 148/49 H 143/57 H Pulse Oximetry 94 97 97 Oxygen Delivery Nasal Cannula Oxygen Flow Rate 2 Fraction of Inspired Oxygen Intake/Output Intake/Output: Intake & Output 11/22/24 11/23/24 11/24/24 11/25/24 23:59 23:59 23:59 23:59 Intake Total 3773.3 2200 1000 Output Total 2049 2475 650 50 Balance 1723.3 -275 350 -50 Meds/Results Medications: Active Medications Generic Name Dose Route Start Last Admin Trade Name Freq PRN Reason Stop Dose Admin Albuterol/Ipratropium 3 ml 11/21/24 13:59 Ipratropium 0.5 Mg/Albuterol Sulfate 2.5 Mg Ampul.Neb 3 Ml INHALATION Q6HRT PRN wheezing Enoxaparin Sodium 40 mg 11/22/24 09:00 11/24/24 08:13 Enoxaparin 40 Mg/0.4 Ml Syringe SUB-Q 40 mg DAILY SUE Administration Guaifenesin 200 mg 11/21/24 13:59 Guaifenesin 200 Mg/10 Ml Udc PO Q4H PRN Cough Lactated Ringer's 1,000 mls @ 50 mls/hr 11/21/24 13:37 11/24/24 16:00 Lr - Lactated Ringers Iv IV CONT 100 mls/hr .Q20H SUE Administration Ibuprofen 800 mg in 200 mls @ 400 mls/hr 11/21/24 13:37 11/23/24 09:54 Caldolor 800 Mg/200 Ml IVPB Infused Q6H PRN Infusion Breakthrough Pain Rated 1-3 or NPO Potassium Chloride 40 meq/ 520 mls @ 130 mls/hr 11/25/24 08:14 Sodium Chloride IVPB 11/25/24 12:13 ONCE ONE Morphine Sulfate 2 mg 11/21/24 13:37 11/24/24 17:26 Morphine Sulfate (*Crx) 2 Mg/Ml Inj IV PUSH 2 mg Q2H PRN Administration Breakthrough Pain Rated 4-6 or NPO Morphine Sulfate 4 mg 11/21/24 13:37 Morphine Sulfate (*Crx) 4 Mg/Ml Inj IV PUSH Q2H PRN Breakthrough Pain Rated 7-10 or NPO Naloxone HCl 0.1 mg 11/21/24 13:37 Naloxone Hcl 0.4 Mg/Ml Vial IV PUSH Q2M PRN Opiate Reversal Nicotine 1 patch 11/21/24 13:59 11/22/24 08:00 Nicotine (*Pbkc) 21 Mg Patch TRANSDERM 1 patch DAILY PRN Administration Nicotine Cravings Ondansetron HCl 4 mg 11/20/24 16:37 Ondansetron Inj 4 Mg/2 Ml Vial IV PUSH Q4H PRN Nausea Perflutren Lipid Microsphere 0 ml 11/24/24 15:22 Perflutren Lipid Microspheres 1.5 Ml Vial Diluted To 10 Ml Total Volume IV PUSH 11/27/24 15:22 ONCE PRN adequate visualization Protocol Radiology Results: ITS Impressions Abdomen/Pelvis CT 11/20/24 14:45 IMPRESSION: Small bowel obstruction, with CT findings of C-loop configuration. Swirling me senteric vessels may reflect a component of volvulus, possibly through a mesenteric defect. Early bowel wall ischemia/necrosis is suspected in a loop of small bowel in the deep pelvis. Small volume, nonsimple ascites. No pneumoperitoneum. Abdomen X-Ray 11/20/24 22:12 IMPRESSION: NG tube, in good position. Small bowel obstruction. Chest X-Ray 11/24/24 15:32 IMPRESSION: 1: Patchy opacities in the mid and lower lungs, greater on the left. Differential includes but is not limited to edema or pneumonia. Recommend follow-up to resolution. Consider a chest CT for further assessment. 2. Probable small bilateral pleural effusions, larger on the left. 3. There is a 1.1 cm sclerotic lesion in the proximal left humerus and a 1.5 cm sclerotic lesion in the proximal left humerus. Differential includes bone islands or metastatic bone lesions. A total body bone scan is recommended. Labs Labs: Laboratory Results - last 24 hr 11/24/24 11/25/24 05:53 06:03 WBC 8.7 RBC 3.74 L Hgb 10.8 L Hct 35.3 L MCV 94.4 MCH 28.9 MCHC 30.6 L RDW 13.9 Plt Count 232 MPV 9.6 Sodium 142 Potassium 3.0 L Chloride 102 Carbon Dioxide 31 H Anion Gap 9 BUN 12 Creatinine 0.55 L Estim Creat Clear Calc 56 Estimated GFR > 60 Glucose 77 Calcium 8.8 Magnesium 1.9 Total Bilirubin 0.5 AST 31 ALT 20 Alkaline Phosphatase 43 NT-Pro-B Natriuret Pep 1360 H Total Protein 5.9 L Albumin 3.2 L
[2024-11-25] MEDS: ENOXAPARIN 40 MG/0.4 ML SYRINGE SUB-Q (10:16)
[2024-11-25] MEDS: LACTATED RINGERS 1,000 ML 100 ML IV CONT (10:16)
[2024-11-25 10:32] VITALS: O2SAT 98
[2024-11-25] MEDS: POTASSIUM CHLORIDE 20 MEQ ER TABLET 40 MEQ PO (10:43)
[2024-11-25 14:00] VITALS: BP 108/71; PULSE 70; RESP 17; TEMP 35.7; O2SAT 91
--- NOTE | 2024-11-25 17:25 | PC.NURSE ---
Transfer received from IMU per hospital bed.
[2024-11-25 21:12] VITALS: BP 143/75; PULSE 70; RESP 24; TEMP 37.6; O2SAT 94
[2024-11-25] MEDS: HYDROcodone/acetaminophen (*CRX) 5-325 MG TABLET 1 TAB PO (21:20)
[2024-11-25] MEDS: ONDANSETRON HCL ODT 4 MG TABLET PO (21:20)
[2024-11-26 06:00] VITALS: BP 126/62; PULSE 101; RESP 24; TEMP 36.8; O2SAT 91
[2024-11-26 06:24] LABS: Hematocrit 35.2 % (37.0-47.0); Hemoglobin 11.2 g/dL (12.0-15.0); Mean Corpuscular HGB Conc 31.8 g/dl (32-36); Mean Corpuscular Hemoglobin 29.5 pg (26-34); Mean Corpuscular Volume 92.6 fl (80-100); Platelet Count Result 253 k/mm3 (150-375); Red Blood Count 3.80 M/mm3 (4.2-5.4); White Blood Count 8.3 K/mm3 (4.5-10.0)
[2024-11-26 07:20] LABS: Alanine Aminotransferase 20 U/L (6-35); Albumin Level 3.2 g/dL (3.5-5.1); Alkaline Phosphatase 44 U/L (38-126); Anion Gap 5 mmol/L (4-12); Aspartate Amino Transferase 34 U/L (14-36); Bilirubin,Total 0.5 mg/dL (0.2-1.3); Blood Urea Nitrogen 11 mg/dL (7-17); Calcium 8.5 mg/dL (8.4-10.2); Carbon Dioxide 31 mmol/L (22-30); Chloride 100 mmol/L (98-107); Estimated CRCL calculation 49 ml/min; Estimated Glomerular Filt Rate > 60; Glucose 96 mg/dL (65-110); Magnesium 1.8 mg/dL (1.6-2.3); Potassium 3.0 mmol/L (3.4-5.0); Sodium 136 mmol/L (137-145); Total Protein 5.8 g/dL (6.3-8.2)
[2024-11-26] MEDS: ENOXAPARIN 40 MG/0.4 ML SYRINGE SUB-Q (08:26)
--- NOTE | 2024-11-26 08:45 | P.PNIM_ITS ---
Progress Note: A&P Assessment and Plan (1) SBO (small bowel obstruction): Code(s): K56.609 - Unspecified intestinal obstruction, unspecified as to partial versus complete obstruction Status: Acute Assessment and Plan: -CT abdomen on presentation concerning for complete small-bowel obstruction with possible ischemia initially with lactic acidosis and leukocytosis of 24. Surgery consulted and since patient has had minimal improvement with NG decompression. patient reported last bowel movement was 5 days prior - s/p exploratory laparotomy with bowel resection 11/[address] Huang. - s/p NG tube removed 11/25 - IV fluids stopped - Pain management - advance diet per surgery - up to chair and ambulate as tolerated - Incentive spirometer - PT/OT recommended SNF, care coordination assisting (2) Acute respiratory failure: Code(s): J96.00 - Acute respiratory failure, unspecified whether with hypoxia or hypercapnia Status: Acute Assessment and Plan: - patient 88% on RA 11/22 - currently requiring 2L NC - CXR with patchy opacities and small bilateral pleural effusions, BNP 1360 - echo with EF >70%, abnormal diastolic function, mild pulmonary HTN - denied CHF history. Patient is an everyday smoker. - stop IVF - monitor UOP - continue IS - received IV lasix x1 - weaned to RA (3) Hyperglycemia: Code(s): R73.9 - Hyperglycemia, unspecified Status: Acute Assessment and Plan: -Patient does not have history of diabetes could be secondary to acute infection, SBO -Hemoglobin A1c 5.9 (4) Lactic acidosis: Code(s): E87.20 - Acidosis, unspecified Status: Resolved Assessment and Plan: -Resolved with IV fluid (5) Nicotine dependence: Code(s): F17.200 - Nicotine dependence, unspecified, uncomplicated Status: Acute Assessment and Plan: -Patient reports everyday smoker -Encouraged smoking cessation -Nicotine patch p.r.n. -Patient with some thick secretions will Mucinex -DuoNebs as needed (6) Hyponatremia: Code(s): E87.1 - Hypo-osmolality and hyponatremia Status: Resolved Assessment and Plan: -likely secondary to fluid loss from bowel obstruction - resolved with IV fluids (7) Leukocytosis: Code(s): D72.829 - Elevated white blood cell count, unspecified Status: Resolved Assessment and Plan: - WBC 24 POA - likely secondary to bowel obstruction -s/p IV Zosyn - WBC normalized Plan Incidental findings: CXR showed 1.1 cm sclerotic lesion in the proximal left humerus and a 1.5 cm sclerotic lesion in the proximal left humerus. Differential includes bone islands or metastatic bone lesions. A total body bone scan is recommended. Will need outpatient follow-up. 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 Patient seen and examined at bedside. Review of Systems Review of Systems: 12 systems were reviewed and are negativ e except for as per HPI. All systems reviewed & are unremarkable except as noted in HPI and below Exam Narrative: General: NAD Eyes: EOMI ENT: neck supple Cardiovascular: Regular rate and rhythm Respiratory: clear to auscultation, respirations even and unlabored on RA Gastrointestinal: mildly distended, mild lower abdominal tenderness Genitourinary: no suprapubic tenderness Musculoskeletal: No edema Skin: warm, dry Neuro: Alert. Psych: Mood appropriate Objective Data Vital Signs Vital Signs: Vital Signs - 24 hr 11/25/24 10:32 11/25/24 12:07 11/25/24 14:00 Temperature 96.3 F L Pulse Rate 70 Respiratory Rate 17 Blood Pressure 108/71 Pulse Oximetry 98 91 Oxygen Delivery Nasal Cannula Room Air Oxygen Flow Rate 2 11/25/24 21:12 11/26/24 06:00 Temperature 99.7 F H 98.3 F Pulse Rate 70 101 H Respiratory Rate 24 H 24 H Blood Pressure 143/75 H 126/62 Pulse Oximetry 94 91 Oxygen Delivery Oxygen Flow Rate Intake/Output Intake/Output: Intake & Output 11/23/24 11/24/24 11/25/24 11/26/24 23:59 23:59 23:59 23:59 Intake Total 2200 1000 1880 100 Output Total 2475 650 50 Balance -221 202 7275 100 Meds/Results Medications: Active Medications Generic Name Dose Route Start Last Admin Trade Name Freq PRN Reason Stop Dose Admin Hydrocodone Bitart/Acetaminophen 1 tab 11/25/24 20:50 11/25/24 21:20 Hydrocodone/Acetaminophen (*Crx) 5-325 Mg Tablet PO 1 tab Q4H PRN Administration Pain Rated 4-6 Albuterol/Ipratropium 3 ml 11/21/24 13:59 Ipratropium 0.5 Mg/Albuterol Sulfate 2.5 Mg Ampul.Neb 3 Ml INHALATION Q6HRT PRN wheezing Enoxaparin Sodium 40 mg 11/22/24 09:00 11/26/24 08:26 Enoxaparin 40 Mg/0.4 Ml Syringe SUB-Q 40 mg DAILY SUE Administration Guaifenesin 200 mg 11/21/24 13:59 Guaifenesin 200 Mg/10 Ml Udc PO Q4H PRN Cough Ibuprofen 800 mg in 200 mls @ 400 mls/hr 11/21/24 13:37 11/23/24 09:54 Caldolor 800 Mg/200 Ml IVPB Infused Q6H PRN Infusion Breakthrough Pain Rated 1-3 or NPO Morphine Sulfate 2 mg 11/21/24 13:37 11/24/24 17:26 Morphine Sulfate (*Crx) 2 Mg/Ml Inj IV PUSH 2 mg Q2H PRN Administration Breakthrough Pain Rated 4-6 or NPO Morphine Sulfate 4 mg 11/21/24 13:37 Morphine Sulfate (*Crx) 4 Mg/Ml Inj IV PUSH Q2H PRN Breakthrough Pain Rated 7-10 or NPO Naloxone HCl 0.1 mg 11/21/24 13:37 Naloxone Hcl 0.4 Mg/Ml Vial IV PUSH Q2M PRN Opiate Reversal Nicotine 1 patch 11/21/24 13:59 11/22/24 08:00 Nicotine (*Pbkc) 21 Mg Patch TRANSDERM 1 patch DAILY PRN Administration Nicotine Cravings Ondansetron HCl 4 mg 11/20/24 16:37 Ondansetron Inj 4 Mg/2 Ml Vial IV PUSH Q4H PRN Nausea Ondansetron HCl 4 mg 11/25/24 20:51 11/25/24 21:20 Ondansetron Hcl Odt 4 Mg Tablet PO 4 mg Q4H PRN Administration Nausea And Vomiting Perflutren Lipid Microsphere 0 ml 11/24/24 15:22 Perflutren Lipid Microspheres 1.5 Ml Vial Diluted To 10 Ml Total Volume IV PUSH 11/27/24 15:22 ONCE PRN adequate visualization Protocol Potassium Chloride 40 meq 11/26/24 09:00 Potassium Chloride 20 Meq Er Tablet PO 11/27/24 09:00 BID [facility] Radiology Results: ITS Impressions Abdomen/Pelvis CT 11/20/24 14:45 IMPRESSION: Small bowel obstruction, with CT findings of C-loop configuration. Swirling mesenteric vessels may reflect a component of volvulus, possibly through a mesenteric defect. Early bowel wall ischemia/necrosis is suspected in a loop of small bowel in the deep pelvis. Small volume, nonsimple ascites. No pneumoperitoneum. Abdomen X-Ray 11/20/24 22:12 IMPRESSION: NG tube, in good position. Small bowel obstruction. Chest X-Ray 11/24/24 15:32 IMPRESSION: 1: Patchy opacities in the mid and lower lungs, greater on the left. Differential includes but is not limited to edema or pneumonia. Recommend follow-up to resolution. Consider a chest CT for further assessment. 2. Probable small bilateral pleural effusions, larger on the left. 3. There is a 1.1 cm sclerotic lesion in the proximal left humerus and a 1.5 cm sclerotic lesion in the proximal left humerus. Differential includes bone islands or metastatic bone lesions. A total body bone scan is recommended. Labs Labs: Laboratory Results - last 24 hr 11/26/24 06:02 WBC 8.3 RBC 3.80 L Hgb 11.2 L Hct 35.2 L MCV 92.6 MCH 29.5 MCHC 31.8 L RDW 13.8 Plt Count 253 MPV 9.6 Sodium 136 L Potassium 3.0 L Chloride 100 Carbon Dioxide 31 H Anion Gap 5 BUN 11 Creatinine 0.64 L Estim Creat Clear Calc 49 Estimated GFR > 60 Glucose 96 Calcium 8.5 Magnesium 1.8 Total Bilirubin 0.5 AST 34 ALT 20 Alkaline Phosphatase 44 Total Protein 5.8 L Albumin 3.2 L Quality VTE Prophylaxis VTE prophylaxis: mechanical ordered
[2024-11-26] MEDS: POTASSIUM CHLORIDE 20 MEQ ER TABLET 40 MEQ PO ×2 (09:02→16:54)
[2024-11-26] MEDS: HYDROcodone/acetaminophen (*CRX) 5-325 MG TABLET 1 TAB PO ×2 (11:56→20:19)
[2024-11-26 13:21] VITALS: BMI 23.0
[2024-11-26 14:00] VITALS: BP 106/70; PULSE 84; RESP 18; TEMP 36.7; O2SAT 96
[2024-11-26] MEDS: BISACODYL 10 MG SUPPOSITORY RECTAL (14:53)
--- NOTE | 2024-11-26 15:47 | P.PNGS_ITS ---
Progress Note: A&P Assessment and Plan (1) SBO (small bowel obstruction): Code(s): K56.609 - Unspecified intestinal obstruction, unspecified as to partial versus complete obstruction Status: Acute Assessment and Plan: * Still possibly with postop ileus, will give Dulcolax suppository * Await further return of bowel function, continue clear liquids for now (2) Tobacco use: Code(s): Z72.0 - Tobacco use Status: Acute Subjective Subjective Date/Time Seen: 11/26/24 15:47 Interval history: Ambulating in halls. Had BM 2 days ago, but now feeling a little bloated. Not passing much flatus. No nausea or vomiting. Exam GI: Inspection: distended and incision (intact with amilcar) GI Palp: Yes Soft to palpation, Yes Tenderness to palpation present (GI) (incisional) and No Guarding due to palpation present (GI) Auscultation: Hypoactive bowel sounds present Objective Data Vital Signs Vital Signs: Vital Signs - 24 hr 11/25/24 21:12 11/26/24 06:00 11/26/24 08:00 Temperature 99.7 F H 98.3 F Pulse Rate 70 101 H Respiratory Rate 24 H 24 H Blood Pressure 143/75 H 126/62 Pulse Oximetry 94 91 Oxygen Delivery Room Air 11/26/24 11:01 11/26/24 14:00 Temperature 98.0 F Pulse Rate 84 Respiratory Rate 18 Blood Pressure 106/70 Pulse Oximetry 96 Oxygen Delivery Room Air Intake/Output Intake/Output: Intake & Output 11/23/24 11/24/24 11/25/24 11/26/24 23:59 23:59 23:59 23:59 Intake Total 2200 1000 1880 340 Output Total 2475 650 50 Balance -656 394 1128 340 Meds/Results Medications: Active Medications Generic Name Dose Route Start Last Admin Trade Name Freq PRN Reason Stop Dose Admin Hydrocodone Bitart/Acetaminophen 1 tab 11/25/24 20:50 11/26/24 11:56 Hydrocodone/Acetaminophen (*Crx) 5-325 Mg Tablet PO 1 tab Q4H PRN Administration Pain Rated 4-6 Albuterol/Ipratropium 3 ml 11/21/24 13:59 Ipratropium 0.5 Mg/Albuterol Sulfate 2.5 Mg Ampul.Neb 3 Ml INHALATION Q6HRT PRN wheezing Enoxaparin Sodium 40 mg 11/22/24 09:00 11/26/24 08:26 Enoxaparin 40 Mg/0.4 Ml Syringe SUB-Q 40 mg DAILY SUE Administration Guaifenesin 200 mg 11/21/24 13:59 Guaifenesin 200 Mg/10 Ml Udc PO Q4H PRN Cough Ibuprofen 800 mg in 200 mls @ 400 mls/hr 11/21/24 13:37 11/23/24 09:54 Caldolor 800 Mg/200 Ml IVPB Infused Q6H PRN Infusion Breakthrough Pain Rated 1-3 or NPO Morphine Sulfate 2 mg 11/21/24 13:37 11/24/24 17:26 Morphine Sulfate (*Crx) 2 Mg/Ml Inj IV PUSH 2 mg Q2H PRN Administration Breakthrough Pain Rated 4-6 or NPO Morphine Sulfate 4 mg 11/21/24 13:37 Morphine Sulfate (*Crx) 4 Mg/Ml Inj IV PUSH Q2H PRN Breakthrough Pain Rated 7-10 or NPO Naloxone HCl 0.1 mg 11/21/24 13:37 Naloxone Hcl 0.4 Mg/Ml Vial IV PUSH Q2M PRN Opiate Reversal Nicotine 1 patch 11/21/24 13:59 11/22/24 08:00 Nicotine (*Pbkc) 21 Mg Patch TRANSDERM 1 patch DAILY PRN Administration Nicotine Cravings Ondansetron HCl 4 mg 11/20/24 16:37 Ondansetron Inj 4 Mg/2 Ml Vial IV PUSH Q4H PRN Nausea Ondansetron HCl 4 mg 11/25/24 20:51 11/25/24 21:20 Ondansetron Hcl Odt 4 Mg Tablet PO 4 mg Q4H PRN Administration Nausea And Vomiting Perflutren Lipid Microsphere 0 ml 11/24/24 15:22 Perflutren Lipid Microspheres 1.5 Ml Vial Diluted To 10 Ml Total Volume IV PUSH 11/27/24 15:22 ONCE PRN adequate visualization Protocol Potassium Chloride 40 meq 11/26/24 09:00 11/26/24 09:02 Potassium Chloride 20 Meq Er Tablet PO 11/27/24 09:00 40 meq BID SUE Administration Radiology Results: ITS Impressions Abdomen/Pelvis CT 11/20/24 14:45 IMPRESSION: Small bowel obstruction, with CT findings of C-loop configuration. Swirling mesenteric vessels may reflect a component of volvulus, possibly through a mesenteric defect. Early bowel wall ischemia/necrosis is suspected in a loop of small bowel in the deep pelvis. Small volume, nonsimple ascites. No pneumoperitoneum. Abdomen X-Ray 11/20/24 22:12 IMPRESSION: NG tube, in good position. Small bowel obstruction. Chest X-Ray 11/24/24 15:32 IMPRESSION: 1: Patchy opacities in the mid and lower lungs, greater on the left. Differential includes but is not limited to edema or pneumonia. Recommend follow-up to resolution. Consider a chest CT for further assessment. 2. Probable small bilateral pleural effusions, larger on the left. 3. There is a 1.1 cm sclerotic lesion in the proximal left humerus and a 1.5 cm sclerotic lesion in the proximal left humerus. Differential includes bone islands or metastatic bone lesions. A total body bone scan is recommended. Labs Labs: Laboratory Results - last 24 hr 11/26/24 06:02 WBC 8.3 RBC 3.80 L Hgb 11.2 L Hct 35.2 L MCV 92.6 MCH 29.5 MCHC 31.8 L RDW 13.8 Plt Count 253 MPV 9.6 Sodium 136 L Potassium 3.0 L Chloride 100 Carbon Dioxide 31 H Anion Gap 5 BUN 11 Creatinine 0.64 L Estim Creat Clear Calc 49 Estimated GFR > 60 Glucose 96 Calcium 8.5 Magnesium 1.8 Total Bilirubin 0.5 AST 34 ALT 20 Alkaline Phosphatase 44 Total Protein 5.8 L Albumin 3.2 L
[2024-11-26 21:03] VITALS: BP 161/86; PULSE 72; RESP 16; TEMP 36.6; O2SAT 90
[2024-11-27 05:54] VITALS: BP 126/74; PULSE 80; RESP 20; TEMP 36.4; O2SAT 93
[2024-11-27 06:28] LABS: Hematocrit 34.4 % (37.0-47.0); Hemoglobin 11.3 g/dL (12.0-15.0); Mean Corpuscular HGB Conc 32.8 g/dl (32-36); Mean Corpuscular Hemoglobin 30.1 pg (26-34); Mean Corpuscular Volume 91.5 fl (80-100); Platelet Count Result 275 k/mm3 (150-375); Red Blood Count 3.76 M/mm3 (4.2-5.4); White Blood Count 7.9 K/mm3 (4.5-10.0)
[2024-11-27 06:52] LABS: Alanine Aminotransferase 24 U/L (6-35); Albumin Level 3.1 g/dL (3.5-5.1); Alkaline Phosphatase 40 U/L (38-126); Anion Gap 3 mmol/L (4-12); Aspartate Amino Transferase 33 U/L (14-36); Bilirubin,Total 0.4 mg/dL (0.2-1.3); Blood Urea Nitrogen 7 mg/dL (7-17); Calcium 8.4 mg/dL (8.4-10.2); Carbon Dioxide 31 mmol/L (22-30); Chloride 101 mmol/L (98-107); Estimated CRCL calculation 53 ml/min; Estimated Glomerular Filt Rate > 60; Glucose 95 mg/dL (65-110); Magnesium 1.7 mg/dL (1.6-2.3); Potassium 3.5 mmol/L (3.4-5.0); Sodium 135 mmol/L (137-145); Total Protein 5.7 g/dL (6.3-8.2)
--- NOTE | 2024-11-27 08:27 | P.PNIM_ITS ---
Progress Note: A&P Assessment and Plan (1) SBO (small bowel obstruction): Code(s): K56.609 - Unspecified intestinal obstruction, unspecified as to partial versus complete obstruction Status: Acute Assessment and Plan: -CT abdomen on presentation concerning for complete small-bowel obstruction with possible ischemia initially with lactic acidosis and leukocytosis of 24. Surgery consulted and since patient has had minimal improvement with NG decompression. patient reported last bowel movement was 5 days prior - s/p exploratory laparotomy with bowel resection 11/[address] Huang. - s/p NG tube removed 11/25 - IV fluids stopped - Pain management - diet advanced to soft diet per surgery - up to chair and ambulate as tolerated - Incentive spirometer - PT/OT recommended SNF, patient planning to return home with [facility] (2) Acute respiratory failure: Code(s): J96.00 - Acute respiratory failure, unspecified whether with hypoxia or hypercapnia Status: Acute Assessment and Plan: - patient 88% on RA 11/22 - currently requiring 2L NC - CXR with patchy opacities and small bilateral pleural effusions, BNP 1360 - echo with EF >70%, abnormal diastolic function, mild pulmonary HTN - denied CHF history. Patient is an everyday smoker. - stopped IVF - monitor UOP - continue IS - received IV lasix x1 - weaned to RA (3) Hyperglycemia: Code(s): R73.9 - Hyperglycemia, unspecified Status: Acute Assessment and Plan: -Patient does not have history of diabetes could be secondary to acute infection, SBO -Hemoglobin A1c 5.9 (4) Nicotine dependence: Code(s): F17.200 - Nicotine dependence, unspecified, uncomplicated Status: Acute Assessment and Plan: -Patient reports everyday smoker -Encouraged smoking cessation -Nicotine patch p.r.n. -Patient with some thick secretions will Mucinex -DuoNebs as needed (5) Hyponatremia: Code(s): E87.1 - Hypo-osmolality and hyponatremia Status: Resolved Assessment and Plan: -likely secondary to fluid loss from bowel obstruction - improved with IV fluids - monitor BMP (6) Leukocytosis: Code(s): D72.829 - Elevated white blood cell count, unspecified Status: Resolved Assessment and Plan: - WBC 24 POA - likely secondary to bowel obstruction - s/p IV Zosyn - WBC normalized Plan Incidental findings: CXR showed 1.1 cm sclerotic lesion in the proximal left humerus and a 1.5 cm sclerotic lesion in the proximal left humerus. Differential includes bone islands or metastatic bone lesions. A total body bone scan is recommended. Discussed with patient concern for malignancy, patient stated she wouldn't want treatment for any cancer and likely will not pursue further work- up. 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 Patient seen and examined at bedside. Feeling better today, still with small bowel movements. Pain improved. She is excited to advance her diet this AM. Review of Systems Review of Systems: 12 systems were reviewed and are negativ e except for as per HPI. All systems reviewed & are unremarkable except as noted in HPI and below Exam Narrative: General: NAD Eyes: EOMI ENT: neck supple Cardiovascular: Regular rate and rhythm Respiratory: clear to auscultation, respirations even and unlabored on RA Gastrointestinal: mildly distended, mild lower abdominal tenderness, bowel sounds active Genitourinary: no suprapubic tenderness Musculoskeletal: No edema Skin: warm, dry Neuro: Alert. Psych: Mood appropriate Objective Data Vital Signs Vital Signs: Vital Signs - 24 hr 11/26/24 11:01 11/26/24 14:00 11/26/24 20:40 Temperature 98.0 F Pulse Rate 84 Respiratory Rate 18 Blood Pressure 106/70 Pulse Oximetry 96 Oxygen Delivery Room Air Room Air 11/26/24 21:03 11/27/24 05:54 Temperature 97.9 F 97.5 F L Pulse Rate 72 80 Respiratory Rate 16 20 Blood Pressure 161/86 H 126/74 Pulse Oximetry 90 93 Oxygen Delivery Intake/Output Intake/Output: Intake & Output 11/24/24 11/25/24 11/26/24 11/27/24 23:59 23:59 23:59 23:59 Intake Total 1000 1880 1110 400 Output Total 650 50 Balance 350 1830 1110 400 Meds/Results Medications: Active Medications Generic Name Dose Route Start Last Admin Trade Name Freq PRN Reason Stop Dose Admin Hydrocodone Bitart/Acetaminophen 1 tab 11/25/24 20:50 11/26/24 20:19 Hydrocodone/Acetaminophen (*Crx) 5-325 Mg Tablet PO 1 tab Q4H PRN Administration Pain Rated 4-6 Albuterol/Ipratropium 3 ml 11/21/24 13:59 Ipratropium 0.5 Mg/Albuterol Sulfate 2.5 Mg Ampul.Neb 3 Ml INHALATION Q6HRT PRN wheezing Enoxaparin Sodium 40 mg 11/22/24 09:00 11/26/24 08:26 Enoxaparin 40 Mg/0.4 Ml Syringe SUB-Q 40 mg DAILY SUE Administration Guaifenesin 200 mg 11/21/24 13:59 Guaifenesin 200 Mg/10 Ml Udc PO Q4H PRN Cough Ibuprofen 800 mg in 200 mls @ 400 mls/hr 11/21/24 13:37 11/23/24 09:54 Caldolor 800 Mg/200 Ml IVPB Infused Q6H PRN Infusion Breakthrough Pain Rated 1-3 or NPO Morphine Sulfate 2 mg 11/21/24 13:37 11/24/24 17:26 Morphine Sulfate (*Crx) 2 Mg/Ml Inj IV PUSH 2 mg Q2H PRN Administration Breakthrough Pain Rated 4-6 or NPO Morphine Sulfate 4 mg 11/21/24 13:37 Morphine Sulfate (*Crx) 4 Mg/Ml Inj IV PUSH Q2H PRN Breakthrough Pain Rated 7-10 or NPO Naloxone HCl 0.1 mg 11/21/24 13:37 Naloxone Hcl 0.4 Mg/Ml Vial IV PUSH Q2M PRN Opiate Reversal Nicotine 1 patch 11/21/24 13:59 11/22/24 08:00 Nicotine (*Pbkc) 21 Mg Patch TRANSDERM 1 patch DAILY PRN Administration Nicotine Cravings Ondansetron HCl 4 mg 11/20/24 16:37 Ondansetron Inj 4 Mg/2 Ml Vial IV PUSH Q4H PRN Nausea Ondansetron HCl 4 mg 11/25/24 20:51 11/25/24 21:20 Ondansetron Hcl Odt 4 Mg Tablet PO 4 mg Q4H PRN Administration Nausea And Vomiting Perflutren Lipid Microsphere 0 ml 11/24/24 15:22 Perflutren Lipid Microspheres 1.5 Ml Vial Diluted To 10 Ml Total Volume IV PUSH 11/27/24 15:22 ONCE PRN adequate visualization Protocol Potassium Chloride 40 meq 11/26/24 09:00 11/26/24 16:54 Potassium Chloride 20 Meq Er Tablet PO 11/27/24 09:00 40 meq BID SUE Administration Radiology Results: ITS Impressions Abdomen/Pelvis CT 11/20/24 14:45 IMPRESSION: Small bowel obstruction, with CT findings of C-loop configuration. Swirling mesenteric vessels may reflect a component of volvulus, possibly through a mesenteric defect. Early bowel wall ischemia/necrosis is suspected in a loop of small bowel in the deep pelvis. Small volume, nonsimple ascites. No pneumoperitoneum. Abdomen X-Ray 11/20/24 22:12 IMPRESSION: NG tube, in good position. Small bowel obstruction. Chest X-Ray 11/24/24 15:32 IMPRESSION: 1: Patchy opacities in the mid and lower lungs, greater on the left. Differential includes but is not limited to edema or pneumonia. Recommend follow-up to resolution. Consider a chest CT for further assessment. 2. Probable small bilateral pleural effusions, larger on the left. 3. There is a 1.1 cm sclerotic lesion in the proximal left humerus and a 1.5 cm sclerotic lesion in the proximal left humerus. Differential includes bone islands or metastatic bone lesions. A total body bone scan is recommended. Labs Labs: Laboratory Results - last 24 hr 11/27/24 05:59 WBC 7.9 RBC 3.76 L Hgb 11.3 L Hct 34.4 L MCV 91.5 MCH 30.1 MCHC 32.8 RDW 13.8 Plt Count 275 MPV 9.8 Sodium 135 L Potassium 3.5 Chloride 101 Carbon Dioxide 31 H Anion Gap 3 L BUN 7 Creatinine 0.58 L Estim Creat Clear Calc 53 Estimated GFR > 60 Glucose 95 Calcium 8.4 Magnesium 1.7 Total Bilirubin 0.4 AST 33 ALT 24 Alkaline Phosphatase 40 Total Protein 5.7 L Albumin 3.1 L Quality VTE Prophylaxis VTE prophylaxis: pharmacologic ordered
[2024-11-27] MEDS: ENOXAPARIN 40 MG/0.4 ML SYRINGE SUB-Q (08:42)
[2024-11-27] MEDS: POTASSIUM CHLORIDE 20 MEQ ER TABLET 40 MEQ PO (08:42)
--- NOTE | 2024-11-27 11:58 | PM.PNGS ---
Progress Note: A&P Assessment and Plan (1) SBO (small bowel obstruction): Code(s): K56.609 - Unspecified intestinal obstruction, unspecified as to partial versus complete obstruction Status: Acute Assessment and Plan: Doing well now postop day 6. Status post small bowel resection. She has had several bowel movements and pain is much better. I will go ahead and advance her to a low-fiber diet. Her wound is healing well. She has been up and moving. Possibly home tomorrow if continues to do well. (2) Tobacco use: Code(s): Z72.0 - Tobacco use Status: Chronic Assessment and Plan: Two packs per day smoker Subjective Subjective Date/Time Seen: 11/27/24 11:58 Post Op day: #6 Patient reports: no new complaints, feels better, pain is less, voiding w/o difficulty, bowel movement and afebrile Exam Const: General: comfortable, alert and awake Nutritional Appearance: thin Orientation/consciousness: patient oriented x3 GI: Inspection: non-distended, incision (Healing well) and scaphoid GI Palp: Yes Soft to palpation and Yes Tenderness to palpation present (GI) Auscultation: normal bowel sounds and normoactive bowel sounds Objective Data Vital Signs Vital Signs: Vital Signs - 24 hr 11/26/24 14:00 11/26/24 20:40 11/26/24 21:03 Temperature 36.7 C 36.6 C Pulse Rate 84 72 Respiratory Rate 18 16 Blood Pressure 106/70 161/86 H Pulse Oximetry 96 90 Oxygen Delivery Room Air 11/27/24 05:54 11/27/24 08:00 Temperature 36.4 C L Pulse Rate 80 Respiratory Rate 20 Blood Pressure 126/74 Pulse Oximetry 93 Oxygen Delivery Room Air Intake/Output Intake/Output: Intake & Output 11/24/24 11/25/24 11/26/24 11/27/24 23:59 23:59 23:59 23:59 Intake Total 1000 1880 1110 520 Output Total 650 50 Balance 350 1830 1110 520 Meds/Results Medications: Active Medications Generic Name Dose Route Start Last Admin Trade Name Freq PRN Reason Stop Dose Admin Hydrocodone Bitart/Acetaminophen 1 tab 11/25/24 20:50 11/26/24 20:19 Hydrocodone/Acetaminophen (*Crx) 5-325 Mg Tablet PO 1 tab Q4H PRN Administration Pain Rated 4-6 Albuterol/Ipratropium 3 ml 11/21/24 13:59 Ipratropium 0.5 Mg/Albuterol Sulfate 2.5 Mg Ampul.Neb 3 Ml INHALATION Q6HRT PRN wheezing Enoxaparin Sodium 40 mg 11/22/24 09:00 11/27/24 08:42 Enoxaparin 40 Mg/0.4 Ml Syringe SUB-Q 40 mg DAILY SUE Administration Guaifenesin 200 mg 11/21/24 13:59 Guaifenesin 200 Mg/10 Ml Udc PO Q4H PRN Cough Ibuprofen 800 mg in 200 mls @ 400 mls/hr 11/21/24 13:37 11/23/24 09:54 Caldolor 800 Mg/200 Ml IVPB Infused Q6H PRN Infusion Breakthrough Pain Rated 1-3 or NPO Morphine Sulfate 2 mg 11/21/24 13:37 11/24/24 17:26 Morphine Sulfate (*Crx) 2 Mg/Ml Inj IV PUSH 2 mg Q2H PRN Administration Breakthrough Pain Rated 4-6 or NPO Morphine Sulfate 4 mg 11/21/24 13:37 Morphine Sulfate (*Crx) 4 Mg/Ml Inj IV PUSH Q2H PRN Breakthrough Pain Rated 7-10 or NPO Naloxone HCl 0.1 mg 11/21/24 13:37 Naloxone Hcl 0.4 Mg/Ml Vial IV PUSH Q2M PRN Opiate Reversal Nicotine 1 patch 11/21/24 13:59 11/22/24 08:00 Nicotine (*Pbkc) 21 Mg Patch TRANSDERM 1 patch DAILY PRN Administration Nicotine Cravings Ondansetron HCl 4 mg 11/20/24 16:37 Ondansetron Inj 4 Mg/2 Ml Vial IV PUSH Q4H PRN Nausea Ondansetron HCl 4 mg 11/25/24 20:51 11/25/24 21:20 Ondansetron Hcl Odt 4 Mg Tablet PO 4 mg Q4H PRN Administration Nausea And Vomiting Perflutren Lipid Microsphere 0 ml 11/24/24 15:22 Perflutren Lipid Microspheres 1.5 Ml Vial Diluted To 10 Ml Total Volume IV PUSH 11/27/24 15:22 ONCE PRN adequate visualization Protocol Radiology Results: ITS Impressions Abdomen/Pelvis CT 11/20/24 14:45 IMPRESSION: Small bowel obstruction, with CT findings of C-loop configuration. Swirling mesenteric vessels may reflect a component of volvulus, possibly through a mesenteric defect. Early bowel wall ischemia/necrosis is suspected in a loop of small bowel in the deep pelvis. Small volume, nonsimple ascites. No pneumoperitoneum. Abdomen X-Ray 11/20/24 22:12 IMPRESSION: NG tube, in good position. Small bowel obstruction. Chest X-Ray 11/24/24 15:32 IMPRESSION: 1: Patchy opacities in the mid and lower lungs, greater on the left. Differential includes but is not limited to edema or pneumonia. Recommend follow-up to resolution. Consider a chest CT for further assessment. 2. Probable small bilateral pleural effusions, larger on the left. 3. There is a 1.1 cm sclerotic lesion in the proximal left humerus and a 1.5 cm sclerotic lesion in the proximal left humerus. Differential includes bone islands or metastatic bone lesions. A total body bone scan is recommended. Labs Labs: Laboratory Results - last 24 hr 11/27/24 05:59 WBC 7.9 RBC 3.76 L Hgb 11.3 L Hct 34.4 L MCV 91.5 MCH 30.1 MCHC 32.8 RDW 13.8 Plt Count 275 MPV 9.8 Sodium 135 L Potassium 3.5 Chloride 101 Carbon Dioxide 31 H Anion Gap 3 L BUN 7 Creatinine 0.58 L Estim Creat Clear Calc 53 Estimated GFR > 60 Glucose 95 Calcium 8.4 Magnesium 1.7 Total Bilirubin 0.4 AST 33 ALT 24 Alkaline Phosphatase 40 Total Protein 5.7 L Albumin 3.1 L
[2024-11-27 14:00] VITALS: BP 136/49; PULSE 77; RESP 16; TEMP 36.6; O2SAT 93
[2024-11-27] MEDS: LACTASE 3,000 UNIT TABLET 3000 UNIT PO (20:35)
[2024-11-27 21:47] VITALS: BP 163/70; PULSE 83; RESP 17; TEMP 37; O2SAT 95
[2024-11-27 22:16] VITALS: PULSE 80; RESP 20; O2SAT 90
[2024-11-28 05:49] VITALS: BP 148/50; PULSE 71; RESP 14; TEMP 36.3; O2SAT 91
[2024-11-28 05:59] LABS: Hematocrit 36.5 % (37.0-47.0); Hemoglobin 11.7 g/dL (12.0-15.0); Mean Corpuscular HGB Conc 32.1 g/dl (32-36); Mean Corpuscular Hemoglobin 29.4 pg (26-34); Mean Corpuscular Volume 91.7 fl (80-100); Platelet Count Result 319 k/mm3 (150-375); Red Blood Count 3.98 M/mm3 (4.2-5.4); White Blood Count 8.3 K/mm3 (4.5-10.0)
[2024-11-28 06:22] LABS: Alanine Aminotransferase 28 U/L (6-35); Albumin Level 3.4 g/dL (3.5-5.1); Alkaline Phosphatase 49 U/L (38-126); Anion Gap 5 mmol/L (4-12); Aspartate Amino Transferase 37 U/L (14-36); Bilirubin,Total 0.4 mg/dL (0.2-1.3); Blood Urea Nitrogen 6 mg/dL (7-17); Calcium 8.6 mg/dL (8.4-10.2); Carbon Dioxide 31 mmol/L (22-30); Chloride 102 mmol/L (98-107); Estimated CRCL calculation 49 ml/min; Estimated Glomerular Filt Rate > 60; Glucose 97 mg/dL (65-110); Magnesium 1.9 mg/dL (1.6-2.3); Potassium 3.4 mmol/L (3.4-5.0); Sodium 138 mmol/L (137-145); Total Protein 6.2 g/dL (6.3-8.2)
[2024-11-28] MEDS: ENOXAPARIN 40 MG/0.4 ML SYRINGE SUB-Q (08:24)
[2024-11-28] MEDS: HYDROcodone/acetaminophen (*CRX) 5-325 MG TABLET 1 TAB PO (12:25)
--- NOTE | 2024-11-28 13:34 | PM.PNGS ---
Progress Note: A&P Assessment and Plan (1) SBO (small bowel obstruction): Code(s): K56.609 - Unspecified intestinal obstruction, unspecified as to partial versus complete obstruction Status: Acute Assessment and Plan: Eating and comfortable on very little analgesics. Explained, again, that there would be incisional pain and that she should take analgesics as needed for that pain. She is ambulating independently and her wound is healing well. She is having bowel movements. I discussed the patient with hospitalist, NICANOR Topete, and we will go ahead and discharge her today. Amilcar will be removed and Steri-Strips placed before discharge. Instructions given and written in the discharge instructions. She should follow-up with Dr. Huang in 2 weeks. (2) Tobacco use: Code(s): Z72.0 - Tobacco use Status: Chronic Assessment and Plan: Two packs per day smoker--advised not to resume smoking for at least the next 30 days. Okay to use nicotine patch or gum or lozenge as a substitute. Subjective Subjective Date/Time Seen: 11/28/24 13:34 Post Op day: #7 Patient reports: no new complaints, pain is less (Taking nonnarcotic oral medication for pain and little of that), voiding w/o difficulty, bowel movement and afebrile Exam Const: General: comfortable, alert and awake Orientation/consciousness: No confusion GI: Inspection: incision (Dry and healing well, will have amilcar removed) and scaphoid GI Palp: Yes Soft to palpation and Yes Tenderness to palpation present (GI) Auscultation: normal bowel sounds Objective Data Vital Signs Vital Signs: Vital Signs - 24 hr 11/27/24 14:00 11/27/24 21:47 11/27/24 22:16 Temperature 36.6 C 37.0 C Pulse Rate 77 83 80 Respiratory Rate 16 17 20 Blood Pressure 136/49 L 163/70 H Pulse Oximetry 93 95 90 Oxygen Delivery Room Air Fraction of Inspired Oxygen 21 11/28/24 05:49 11/28/24 08:00 Temperature 36.3 C L Pulse Rate 71 Respiratory Rate 14 Blood Pressure 148/50 H Pulse Oximetry 91 Oxygen Delivery Room Air Fraction of Inspired Oxygen Intake/Output Intake/Output: Intake & Output 11/25/24 11/26/24 11/27/24 11/28/24 23:59 23:59 23:59 23:59 Intake Total 1880 1110 720 780 Output Total 50 Balance 1830 1110 720 780 Meds/Results Medications: Active Medications Generic Name Dose Route Start Last Admin Trade Name Freq PRN Reason Stop Dose Admin Hydrocodone Bitart/Acetaminophen 1 tab 11/25/24 20:50 11/28/24 12:25 Hydrocodone/Acetaminophen (*Crx) 5-325 Mg Tablet PO 1 tab Q4H PRN Administration Pain Rated 4-6 Albuterol/Ipratropium 3 ml 11/21/24 13:59 Ipratropium 0.5 Mg/Albuterol Sulfate 2.5 Mg Ampul.Neb 3 Ml INHALATION Q6HRT PRN wheezing Enoxaparin Sodium 40 mg 11/22/24 09:00 11/28/24 08:24 Enoxaparin 40 Mg/0.4 Ml Syringe SUB-Q 40 mg DAILY SUE Administration Guaifenesin 200 mg 11/21/24 13:59 Guaifenesin 200 Mg/10 Ml Udc PO Q4H PRN Cough Ibuprofen 800 mg in 200 mls @ 400 mls/hr 11/21/24 13:37 11/23/24 09:54 Caldolor 800 Mg/200 Ml IVPB Infused Q6H PRN Infusion Breakthrough Pain Rated 1-3 or NPO Lactase 3,000 unit 11/27/24 12:30 11/27/24 20:35 Lactase 3,000 Unit Tablet PO 3,000 unit TIDWM PRN Administration Abdominal Cramping Morphine Sulfate 2 mg 11/21/24 13:37 11/24/24 17:26 Morphine Sulfate (*Crx) 2 Mg/Ml Inj IV PUSH 2 mg Q2H PRN Administration Breakthrough Pain Rated 4-6 or NPO Morphine Sulfate 4 mg 11/21/24 13:37 Morphine Sulfate (*Crx) 4 Mg/Ml Inj IV PUSH Q2H PRN Breakthrough Pain Rated 7-10 or NPO Naloxone HCl 0.1 mg 11/21/24 13:37 Naloxone Hcl 0.4 Mg/Ml Vial IV PUSH Q2M PRN Opiate Reversal Nicotine 1 patch 11/21/24 13:59 11/22/24 08:00 Nicotine (*Pbkc) 21 Mg Patch TRANSDERM 1 patch DAILY PRN Administration Nicotine Cravings Ondansetron HCl 4 mg 11/20/24 16:37 Ondansetron Inj 4 Mg/2 Ml Vial IV PUSH Q4H PRN Nausea Ondansetron HCl 4 mg 11/25/24 20:51 11/25/24 21:20 Ondansetron Hcl Odt 4 Mg Tablet PO 4 mg Q4H PRN Administration Nausea And Vomiting Radiology Results: ITS Impressions Abdomen/Pelvis CT 11/20/24 14:45 IMPRESSION: Small bowel obstruction, with CT findings of C-loop configuration. Swirling mesenteric vessels may reflect a component of volvulus, possibly through a mesenteric defect. Early bowel wall ischemia/necrosis is suspected in a loop of small bowel in the deep pelvis. Small volume, nonsimple ascites. No pneumoperitoneum. Abdomen X-Ray 11/20/24 22:12 IMPRESSION: NG tube, in good position. Small bowel obstruction. Chest X-Ray 11/24/24 15:32 IMPRESSION: 1: Patchy opacities in the mid and lower lungs, greater on the left. Differential includes but is not limited to edema or pneumonia. Recommend follow-up to resolution. Consider a chest CT for further assessment. 2. Probable small bilateral pleural effusions, larger on the left. 3. There is a 1.1 cm sclerotic lesion in the proximal left humerus and a 1.5 cm sclerotic lesion in the proximal left humerus. Differential includes bone islands or metastatic bone lesions. A total body bone scan is recommended. Labs Labs: Laboratory Results - last 24 hr 11/28/24 05:20 WBC 8.3 RBC 3.98 L Hgb 11.7 L Hct 36.5 L MCV 91.7 MCH 29.4 MCHC 32.1 RDW 14.0 Plt Count 319 MPV 9.7 Sodium 138 Potassium 3.4 Chloride 102 Carbon Dioxide 31 H Anion Gap 5 BUN 6 L Creatinine 0.64 L Estim Creat Clear Calc 49 Estimated GFR > 60 Glucose 97 Calcium 8.6 Magnesium 1.9 Total Bilirubin 0.4 AST 37 H ALT 28 Alkaline Phosphatase 49 Total Protein 6.2 L Albumin 3.4 L
--- NOTE | 2024-11-28 13:39 | P.DS_ITS ---
DS: Admitting Diagnosis Discharge Date 11/28/24 Admitting Diagnosis - SBO DS: Discharge Diagnosis Discharge Diagnosis (1) SBO (small bowel obstruction): Code(s): K56.609 - Unspecified intestinal obstruction, unspecified as to partial versus complete obstruction Status: Acute (2) Acute respiratory failure: Code(s): J96.00 - Acute respiratory failure, unspecified whether with hypoxia or hypercapnia Status: Acute (3) Hyperglycemia: Code(s): R73.9 - Hyperglycemia, unspecified Status: Acute (4) Nicotine dependence: Code(s): F17.200 - Nicotine dependence, unspecified, uncomplicated Status: Acute (5) Hyponatremia: Code(s): E87.1 - Hypo-osmolality and hyponatremia Status: Resolved (6) Leukocytosis: Code(s): D72.829 - Elevated white blood cell count, unspecified Status: Resolved DS: Summary Hospital Course Reason for hospitalization: - SBO Hospital Course: 79-year-old female with past medical history of uterine cancer, 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 In ED, lab work showed WBC 23.0, sodium 133, chloride of 96, glucose of 152, lactic acid of 2.4 followed by 1.9, AST 37, UA is negative for infection. CT A/P showed small bowel obstruction, with findings of C-loop configuration. Swirling mesenteric vessels may reflect a component of volvulus, possibly through a mesenteric defect. Early bowel wall ischemia/necrosis is suspected in a loop of small bowel in the deep pelvis. Patient was started on IV Zosyn and admitted for surgical evaluation. Initially, conservative management of SBO was attempted with NG tube decompression, however patient had continued abdominal pain and distention. Patient subsequently underwent exploratory laparotomy with bowel resection 11/[address] Huang. Patient's postoperative course was complicated by acute respiratory failure requiring up to 2L NC. Patient has no home oxygen requirement. CXR with patchy opacities and small bilateral pleural effusions, BNP 1360. Echo with EF >70%, abnormal diastolic function, mild pulmonary HTN, IV fluids were stopped and patient received IV lasix x1. Patient was weaned to RA. Patient's NG was removed 11/25. Leukocytosis and hyponatremia resolved. IV antibiotics were discontinued. She had return of bowel function with several small bowel movements and was passing flatus. General surgery advanced her to a regular diet which she was tolerating on the day of discharge. She was seen by PT/OT and SNF was originally recommended, however patient had improvement in her mobility and was ambulating independently so she elected to be discharged home with [facility] and assistance from family. She was instructed to follow-up with general surgery in 2 weeks. She was encouraged to quit smoking. Incidental findings: CXR showed 1.1 cm sclerotic lesion in the proximal left humerus and a 1.5 cm sclerotic lesion in the proximal left humerus. Differential includes bone islands or metastatic bone lesions. A total body bone scan is recommended. Discussed with patient concern for malignancy, patient stated she wouldn't want treatment for any cancer and likely will not pursue further work- up. Patient was discharged home in stable condition. Strict return precautions discussed. Status at Discharge Functional status at discharge: independent ambulation Time Spent with Patient Time attestation: Total time spent providing and/or coordinating discharge services: Time spent: Greater than 30 minutes Exam Narrative: General: NAD Eyes: EOMI ENT: neck supple Cardiovascular: Regular rate and rhythm Respiratory: clear to auscultation, respirations even and unlabored on RA Gastrointestinal: surgical incision well-approximated, mild lower abdominal tenderness, bowel sounds active Genitourinary: no suprapubic tenderness Musculoskeletal: No edema Skin: warm, dry Neuro: Alert. Ambulates with steady gait. Psych: Mood appropriate DS: Data Data Completed and Pending Completed studies during hospitalization: ITS Impressions Abdomen/Pelvis CT 11/20/24 14:45 IMPRESSION: Small bowel obstruction, with CT findings of C-loop configuration. Swirling mesenteric vessels may reflect a component of volvulus, possibly through a mesenteric defect. Early bowel wall ischemia/necrosis is suspected in a loop of small bowel in the deep pelvis. Small volume, nonsimple ascites. No pneumoperitoneum. Abdomen X-Ray 11/20/24 22:12 IMPRESSION: NG tube, in good position. Small bowel obstruction. Chest X-Ray 11/24/24 15:32 IMPRESSION: 1: Patchy opacities in the mid and lower lungs, greater on the left. Differential includes but is not limited to edema or pneumonia. Recommend follow-up to resolution. Consider a chest CT for further assessment. 2. Probable small bilateral pleural effusions, larger on the left. 3. There is a 1.1 cm sclerotic lesion in the proximal left humerus and a 1.5 cm sclerotic lesion in the proximal left humerus. Differential includes bone islands or metastatic bone lesions. A total body bone scan is recommended. Pending studies at discharge: Pending at discharge 11/21/24 11:27 Surgical [PTH] Routine Labs on day of discharge: Labs from last 24 hours 11/28/24 05:20 WBC 8.3 RBC 3.98 L Hgb 11.7 L Hct 36.5 L MCV 91.7 MCH 29.4 MCHC 32.1 RDW 14.0 Plt Count 319 MPV 9.7 Sodium 138 Potassium 3.4 Chloride 102 Carbon Dioxide 31 H Anion Gap 5 BUN 6 L Creatinine 0.64 L Estim Creat Clear Calc 49 Estimated GFR > 60 Glucose 97 Calcium 8.6 Magnesium 1.9 Total Bilirubin 0.4 AST 37 H ALT 28 Alkaline Phosphatase 49 Total Protein 6.2 L Albumin 3.4 L Discharge Plan Discharge Attending physician on discharge: Odin Domingo Consulting providers: Noy Calvillo; Kevin Huang; Sofya Sunshine Discharging Clinician: Sofya Sunshine Anticipated Discharge Date/Time: 11/28/24 11:27 Patient Disposition: Home with Home Health Service Activity: may shower, no straining and as tolerated Diet: regular Wound Care Instructions: incision open to air Discharge Instructions: Per Care Coordination: [facility] ([phone]) will call to set up initial visit. Take all medications as prescribed. Finish antibiotics if prescribed, even if you are feeling better. Follow-up with your primary care provider in one week. NO heavy lifting. Change positions slowly and move slowly to avoid falls. Return to the emergency department if you develop chest pain, shortness of breath, persistent fever >100.4, confusion, loss of consciousness, severe abdominal pain, nausea/vomiting, inability to have a bowel movement. You x-ray showed that you have 2 abnormal lesions in your arm bones. The radiologist recommended a bone scan to exclude cancer. Discuss this work-up with your primary care doctor at your hospital follow-up visit. Call Dr. Huang's office if you notice any redness around the incision site, drainage from the incision. Surgery discharge instructions * Ambulate 3-4 x per day and as tolerated. * No lifting over 10-15lbs. * May shower tomorrow and as desired thereafter. Please wash over incision and Steri-Strips with soap and water when showering. * Call Dr. Huang's office to make a follow-up appointment for 2 weeks. * May drive a car in 3 days. * Remove any dressings before shower and replace after. * Do not smoke for next 30 days at least. Okay to use Nicorette gum, nicotine lozenges, other nicotine substitutes. Patient Language: Tajik Stand Alone Forms: General Discharge Information Follow-up/Referrals: Casey Cottrell MD [Primary Care Provider, Internal Medicine] - Call for Appointment Referral Note: follow-up in one. Discuss bone scan for abnormal lesions in arm bones. Kevin Huang DO [Physician, General Surgery] - 2 Weeks Referral Note: Call office to make appointment Discharge Medications: New oxycodone-acetaminophen [Percocet] 5-325 mg tablet 0.5 - 1 tablet PO Q6H PRN (Reason: pain) Qty: 10 0RF acetaminophen [Tylenol] 325 mg tablet 650 mg PO Q6H PRN (Reason: pain) Qty: 60 0RF polyethylene glycol 3350 [Miralax] 17 gram/dose powder 17 g PO DAILY Qty: 850 0RF Continued cholecalciferol (vitamin D3) 50 mcg (2,000 unit) capsule 50 mcg PO DAILY Qty: 90 2RF dicyclomine 20 mg tablet 20 mg PO QID Qty: 360 2RF Date of admission: 11/20/24 16:52 Primary Care Provider: Casey Cottrell Admitting Provider: Sulaiman Corona Attending physician on admission: Sulaiman Corona Condition: Stable
== END 2024-11-28 16:29 | disposition home health service (06) | DRG 330 ==
LOC: ANHED 16:36 → ANH3MEDSUR 17:35
PROVIDERS: Nurse Practitioner Family; Nurse Practitioner Gerontology; Surgery; Admitting Provider General Practice; Emergency Provider Family Medicine; PCP Emergency Medicine; Visit Provider Physician Assistant
PROC: 0DBB0ZZ Excision of Ileum, Open Approach (ICD-10-PCS; CPT 49000; principal; 2024-11-21 10:30)
DX: K56.50 Intestinal adhesions [bands], unspecified as to partial versus complete obstruction (principal); E87.1 Hypo-osmolality and hyponatremia; E87.21 Acute metabolic acidosis; K57.12 Diverticulitis of small intestine without perforation or abscess without bleeding; F41.9 Anxiety disorder, unspecified; K55.20 Angiodysplasia of colon without hemorrhage; D72.829 Elevated white blood cell count, unspecified; R73.9 Hyperglycemia, unspecified; E78.5 Hyperlipidemia, unspecified; F17.210 Nicotine dependence, cigarettes, uncomplicated; M19.90 Unspecified osteoarthritis, unspecified site; M89.9 Disorder of bone, unspecified; K21.9 Gastro-esophageal reflux disease without esophagitis; Z90.710 Acquired absence of both cervix and uterus; Z85.42 Personal history of malignant neoplasm of other parts of uterus
CPT/HCPCS: 36415; 71045; 74177; 80048; 80053; 81001; 83036; 83605; 83690; 83735; 83880; 85025; 85027; 88307; 93306; 96365; 96375; 97116; 97162; 97166; 97530; 99285; A9270; J0330; J1171; J1650; J1741; J1885; J1938; J2003; J2060; J2270; J2405; J2543; J2704; J3010; J7030; J7120; Q9967

== ENCOUNTER 2024-12-10 09:08 | Outpatient (CLI) | payer MEDICARE, SELFPAY ==
--- NOTE | ~2024-12-10 | NM_ITS ---
EXAMINATION: NM bone scan whole body DATE: 12/10/2024 13:58 INDICATION: Disorder of bone TECHNIQUE: 23.6 mCi Tc-99m HDP was administered intravenously. Delayed whole- body scintigrams were obtained. COMPARISON: CT dated 11/20/2024 FINDINGS: There is mild S-shaped curvature of the lower thoracic and lumbar spine. There is a small region of increased uptake at the left side of the L3-L4 disc space with corresponding cystic and sclerotic Modic type III degenerative endplate changes on CT. There is additional small focus of mild uptake at the right-sided the mid cervical spine corresponding severe multilevel cervical facet osteoarthritis on radiographs dated 06/23/2024. No other suspicious foci of abnormal bone uptake. IMPRESSION: 1. Mild likely degenerative uptake in the right-sided mid cervical facet joints and at the left side of the L3-L4 disc space. Reviewed, dictated and finalized at location A.
--- OUTSIDE RECORDS SUMMARY | 2024-12-10 09:17 | XMS_ITS | Clinical Summary ---
Author Organization [facility] Address [address] [address] Phone Care Team Providers Care Housekeeper Child Care Name Role Phone Casey Cottrell MD Primary Care Provider [phone] Medications dicyclomine (BENTYL) 10 MG Capsule Take [...] to complete this topic Insurance MEDICARE C [facility] Care Teams Housekeeper Child Care Relationship Specialty Start Date End Date Casey Cottrell MD [address] [place] [address] PCP - General Internal Medicine 04/28/19
== END 2024-12-10 09:09 | disposition home or self-care (01) ==
PROVIDERS: PCP Emergency Medicine; Visit Provider Emergency Medicine
DX: M89.9 Disorder of bone, unspecified (principal)
CPT/HCPCS: 78306; A9503